=== PATIENT | female | born 1950 | race Caucasian/White ===

== ENCOUNTER → 2025-02-15 | Outpatient (CLI) | payer MEDICARE, SELFPAY ==
[2025-02-15 10:18] LABS: AST(SGOT) 58 U/L (<=31); Alanine Aminotransfer ALT/SGPT 74 U/L (<=34); Albumin, Serum 4.5 g/dL (3.4-4.8); Alkaline Phosphatase 341 U/L (35-104); Bilirubin, Direct 0.30 mg/dL (0.00-0.30); Globulin 3.5 g/dL (2.2-4.2)
[2025-02-16 16:09] LABS: Angiotensin Convert Enzyme 25 U/L (14-82); IgG, Quant 1401 mg/dL (586-1602); Immunoglobulin G, Subclass 1 681 mg/dL (248-810); Immunoglobulin G, Subclass 2 514 mg/dL (130-555); Immunoglobulin G, Subclass 3 48 mg/dL (15-102); Immunoglobulin G, Subclass 4 26 mg/dL (2-96)
== END | disposition home or self-care (01) ==
PROVIDERS: PCP Nurse Practitioner Family; Referring Provider Nurse Practitioner Acute Care; Visit Provider Nurse Practitioner Acute Care
DX: R74.8 Abnormal levels of other serum enzymes (principal); R74.01 Elevation of levels of liver transaminase levels; K83.8 Other specified diseases of biliary tract
CPT/HCPCS: 36415; 80076; 82164; 82784; 82787; 83516; 86038; 86225; 86235; 86704; 86706; 86708

== ENCOUNTER → 2025-03-02 | Outpatient (CLI) | payer MEDICARE, SELFPAY ==
[2025-03-02 15:05] LABS: AST(SGOT) 42 U/L (<=31); Alanine Aminotransfer ALT/SGPT 58 U/L (<=34); Albumin, Serum 4.3 g/dL (3.4-4.8); Alkaline Phosphatase 305 U/L (35-104); Bilirubin, Direct 0.30 mg/dL (0.00-0.30); Globulin 3.2 g/dL (2.2-4.2)
[2025-03-04 14:08] LABS: ANTINUCLEAR ANTIBODIES DIRECT Negative (Negative)
== END | disposition home or self-care (01) ==
LOC: LAB 13:47
PROVIDERS: PCP Nurse Practitioner Family; Referring Provider Nurse Practitioner Acute Care; Visit Provider Nurse Practitioner Acute Care
DX: R74.01 Elevation of levels of liver transaminase levels (principal); R74.8 Abnormal levels of other serum enzymes; K83.8 Other specified diseases of biliary tract
CPT/HCPCS: 80076; 83516; 86038; 86225; 86235

== ENCOUNTER → 2025-03-23 | Outpatient (CLI) | payer MEDICARE, SELFPAY ==
--- NOTE | 2025-03-23 15:59 | CT_ITS ---
PROCEDURE: ABDOMEN/PELVIS WITH CONTRAST 03/23/2025 REASON FOR EXAM: DILATED CBD AND TRANSAMINITIS Elevated liver enzymes. TECHNIQUE: Procedure Code: [id number] Modality: CT Procedure: ABDOMEN/PELVIS WITH CONTRAST Coronal and Sagittal reconstruction series were provided. CONTRAST: Isovue-300 VOLUME: 95 mL One or more dose reduction techniques were used (e.g., Automated exposure control, adjustment of the mA and/or kV according to patient size, use of iterative reconstruction technique. RADIATION DOSE SUMMARY: CTDlvol: 15.8 mGy DLP: 956.29 mGycm COMPARISON: None FINDINGS: Lung bases: The lung bases are clear. Liver: Diffuse fatty infiltration. Gallbladder: Surgically absent.. The common bile duct measures 7.6 mm in transverse dimension. Spleen: Normal size. Pancreas: Diffuse fatty atrophy. Adrenals: Unremarkable Kidneys: Normal renal sizes. No hydronephrosis. Bladder: Not adequately distended. Reproductive Organs: Unremarkable Bowel: Moderate amount of fecal material is seen throughout the colon. Appendix: Unremarkable. Lymph nodes: Unremarkable. Vasculature: Mild diffuse atherosclerotic calcifications are noted. Peritoneum / Retroperitoneum: Small umbilical hernia containing fat. Bones: Degenerative changes of the spine. CT/Abdomen/Pelvis WITH Contrast IMPRESSION: Fatty infiltration of the liver. The patient is status post cholecystectomy. Fatty atrophy of the pancreas. Moderate amount of fecal material is seen throughout the colon. Reading Location: [id number]
== END | disposition home or self-care (01) ==
LOC: CT 15:57
PROVIDERS: PCP Nurse Practitioner Family; Referring Provider Nurse Practitioner Acute Care; Visit Provider Nurse Practitioner Acute Care
DX: R74.8 Abnormal levels of other serum enzymes (principal); K83.8 Other specified diseases of biliary tract; R74.01 Elevation of levels of liver transaminase levels
CPT/HCPCS: 74177; Q9967

== ENCOUNTER → 2025-04-05 | Outpatient (CLI) | payer MEDICARE, SELFPAY ==
--- OUTSIDE RECORDS SUMMARY | 2025-04-05 08:06 | XMS RPT_ITS | CCD ---
Author Organization [facility] Care Team Providers Care Lining Cleaner Name Role Phone [facility] MANAGER-RUG REPAIRER, [place] Primary Care Physician VON CROWELL, DR SUSY Perry Attending Unavailab le [facility] MANAGER-RUG REPAIRER, [facility] Unavail able SUPPAN DPM, JAYLEN Pak Attending Unavailable [facility] MANAGER-RUG REPAIRER, [facility] Unavail able SUPPAN DPM, JAYLEN Pak Attending Unavailable [facility] MANAGER-RUG REPAIRER, [facility] Unavail able [facility] MANAGER-RUG REPAIRER, [place] Attending Unavail able [facility] MANAGER-RUG REPAIRER, [facility] Unavail able [facility] MANAGER-RUG REPAIRER, [place] Primary Care Physician Alex PERSONNEL RECORDS CLERK-CJazmine Attending Physician Hawa PERSONNEL RECORDS CLERK-C, [place] Primary Care Physician [phone] Alex PERSONNEL RECORDS CLERK-Jazmine Manzo Referring Provider [facility] MANAGER-RUG REPAIRER, [place] Attending Unavail able [facility] MANAGER-RUG REPAIRER, [facility] Unavail able [facility] MANAGER-RUG REPAIRER, [place] Attending Unavail able [facility] MANAGER-RUG REPAIRER, [facility] Unavail able ECHO DRUMMOND PA-C Attending Unavailable [facility] MANAGER-RUG REPAIRER, [facility] Unavail able [facility] MANAGER-RUG REPAIRER, [place] Attending Unavail able [facility] MANAGER-RUG REPAIRER, [facility] Unavail able [facility] MANAGER-RUG REPAIRER, [facility] Unavail able [facility] MANAGER-RUG REPAIRER, JAZMINE Attending Unava ilable [facility] MANAGER-RUG REPAIRER, [facility] Unavail able [facility] MANAGER-RUG REPAIRER, JAZMINE Attending Unava ilable [facility] MANAGER-RUG REPAIRER, [place] Attending Unavail able [facility] MANAGER-RUG REPAIRER, [facility] Unavail able [facility] MANAGER-RUG REPAIRER, [facility] Unavail able [facility] MANAGER-RUG REPAIRER, [place] Attending Unavail able RAMIRO SHAVER PA-C Attending Unavailab le [facility] MANAGER-RUG REPAIRER, [facility] Unavail able [facility] MANAGER-RUG REPAIRER, [place] Attending Unavail able [facility] MANAGER-RUG REPAIRER, [facility] Unavail able Jazmine Culver Referring Unavailable Jazmine Culver Attending Unavailable Hawa PERSONNEL RECORDS CLERK, [facility] Unavailable Jazmine Culver Referring Unavailable Jazmine Culver Attending Unavailable Hawa PERSONNEL RECORDS CLERK, [facility] Unavailable Susy Longoria Referring Unavailable Susy Longoria Attending Unavailable Jazmine Culver Attending Unavailable Jazmine Culver Referring Unavailable Jazmine Culver Attending Unavailable Hawa PERSONNEL RECORDS CLERK, [facility] Unavailable Allergies Allergy Classification Reported Allergen(s) Allergy Type Date of Onset Reaction(s) Facility (8 sources) Lisinopril; Translations: [lisinopril] Drug Allergy 5 Cough (finding) [facility] Michael (1 source) Lisinopril Drug Allergy 5 [facility] Repository Medications Current Medications Medication Drug Class(es) Dates Sig (Normalized) Sig (Original) Latimer 1,000 mg tablet (2 sources) Start: 02-15-2025 take 1 tablet by mouth once daily Start: 02-02-2025 End: 02-15-2025 take 1 mg by mouth once daily Latimer 1,000 mg tablet Discontinued mg PO daily February 02, 2025 12:00am February 15, 2025 7:57am Latimer capsule (18 sources) Start: 04-18-2021 take 1 capsule by [facility] once daily Latimer capsule 1,000 mg, Oral, Daily, 0 Refill(s) Start Date: 04/18/21 Status: Ordered Medication Dispense Status: Completed Total Allowed Fills: 1 Fills Dispensed: 0 Start: 04-18-2021 take 1 capsule by [facility] once daily Latimer capsule 1,000 mg, Oral, Daily, 0 Refill(s) Start Date: 04/18/21 Status: Ordered Repeat number: 1 Start: 04-18-2021 take 1 capsule by [facility] once daily Latimer capsule 1,000 mg, Oral, Daily, 0 Refill(s) Start Date: 04/18/21 Status: Ordered Start: 04-18-2021 Latimer capsul e 0 Refill(s) Start Date: 04/18/21 Status: Ordered ascorbic acid 500 mg oral capsule (19 sources) Vitamin C Start: 02-02-2025 take 1 mg by mouth o nce daily Start: 04-18-2021 take 1 dose by mouth once candida y Vitamin C Dose : 500 mg =, Oral, qDay, 0 Refill(s) Start Date: 04/18/21 Status: Ordered Medication Dispense Status: Completed Total Allowed Fills: 1 Fills Dispensed: 0 Start: 04-18-2021 Vitamin C qDay , 0 Refill(s) Start Date: 04/18/21 Status: Ordered aspirin 81 mg delayed release oral tablet (12 sources) Platelet Aggregation Inhibitor, Nonsteroidal Anti-inflammatory Drug Start: 06-04-2023 aspirin 81 mg ora l delayed release tablet Dose : 81 mg = 1 tab(s), Oral, Daily, 0 Refill(s) Start Date: 06/04/23 Status: Ordered Repeat number: 1 Start: 09-13-2020 aspirin 81 mg oral delayed release tablet Dose : 162 mg = 2 tab(s), Oral, qDay, # 90 tab(s), 3 Refill(s), other reason (Rx) Start Date: 09/13/20 Status: Ordered Start: 09-13-2020 aspirin 81 mg oral delayed release tablet Dose : 162 mg = 2 tab(s), Oral, qDay, # 90 tab(s), 3 Refill(s), other reason (Rx) Start Date: 09/13/20 Status: Ordered atorvastatin 20 mg oral tablet (16 sources) HMG-CoA Reductase Inhibitor Start: 08-28-2023 End: 11-18-2025 take 1 tablet by mouth once daily Calcium with Vitamin D and Magnesium oral tablet, chewable (18 sources) Start: 04-18-2021 take 1 tablet by mouth twice daily Calcium with Vitamin D and Magnesium oral tablet, chewable Dose = 1 tab(s), Chewed, BID, 0 Refill(s) Start Date: 04/18/21 Status: Ordered Medication Dispense Status: Completed Total Allowed Fills: 1 Fills Dispensed: 0 Start: 04-18-2021 take 1 tablet by [facility] twice daily Calcium with Vitamin D and Magnesium oral tablet, chewable Dose = 1 tab(s), Chewed, BID, 0 Refill(s) Start Date: 04/18/21 Status: Ordered Repeat number: 1 Start: 04-18-2021 take 1 tablet by [facility] twice daily Calcium with Vitamin D and Magnesium oral tablet, chewable Dose = 1 tab(s), Chewed, BID, 0 Refill(s) Start Date: 04/18/21 Status: Ordered Start: 04-18-2021 take 1 tablet by [facility] three times daily Calcium with Vitamin D and Magnesium oral tablet, chewable tab(s), Chewed, TID, 0 Refill(s) Start Date: 04/18/21 Status: Ordered famotidine 20 mg oral tablet (2 sources) Histamine-2 Receptor Antagonist Start: 04-13-2024 famotidine 20 mg oral tablet Dose : 20 mg = 1 tab(s), Oral, BID, # 60 tab(s), 0 Refill(s) Start Date: 04/13/24 Status: Ordered Quantity: 60.0 Unit: tab(s) Repeat number: 1 Lactobacillus Combination No.9 (Adult 50 Plus Probiotic) 4 billion cell capsule (1 source) Start: 02-02-2025 take 4 capsules by mouth once daily levothyroxine sodium 0.15 mg oral capsule (20 sources) l-Thyroxine Start: 02-02-2025 take 1 capsule by mouth once daily Start: 11-23-2024 End: 08-20-2025 levothyroxine 150 mcg (0.15 mg) oral tablet Dose : 150 mcg = 1 tab(s), Oral, qDay, # 90 tab(s), 2 Refill(s), Pharmacy: [facility], 166, cm, 11/23/24 8:50:00 EDT, Height, kg, 11/23/24 8:50:00 EDT, Dosing Weight Start Date: 11/23/24 Stop Date: 08/20/25 Status: Ordered Medication Dispense Status: Completed Quantity: 90.0 Unit: tab(s) Total Allowed Fills: 3 Fills Dispensed: 0 Start: 08-10-2024 End: 08-05-2025 levothyroxine 175 mcg (0.175 mg) oral tablet Dose : 175 mcg = 1 tab(s), Oral, qDay, # 90 tab(s), 3 Refill(s), [facility]acy: [facility] 166, cm, 08/10/24 7:18:00 EDT, Height, kg, 08/10/24 7:18:00 EDT, Dosing Weight Start Date: 08/10/24 Stop Date: 08/05/25 Status: Ordered Quantity: 90.0 Unit: tab(s) Repeat number: 4 Start: 04-13-2024 levothyroxine 175 mcg (0.175 mg) oral tablet Dose : 175 mcg = 1 tab(s), Oral, qDay, # 90 tab(s), 3 Refill(s), other reason (Rx) Start Date: 04/13/24 Status: Ordered Quantity: 90.0 Unit: tab(s) Repeat number: 4 Start: 06-17-2023 levothyroxine 175 mcg (0.175 mg) oral tablet Dose : 175 mcg = 1 tab(s), Oral, qDay, No dose on Sundays, # 90 tab(s), 3 Refill(s), Pharmacy: [facility] 167, cm, 06/14/23 10:03:00 EST, Height, kg, 06/14/23 10:03:00 EST, Dosing Weight Start Date: 06/17/23 Status: Ordered Start: 09-24-2022 levothyroxine 175 mcg (0.175 mg) oral tablet Dose : 175 mcg = 1 tab(s), Oral, qDay, No dose on Sundays, # 90 tab(s), 3 Refill(s), [facility], 08/10/22 8:56:00 EDT, Height, kg, 08/10/22 8:56:00 EDT, Dosing Weight Start Date: 09/24/22 Status: Ordered Start: 05-15-2022 levothyroxine 175 mcg (0.175 mg) oral tablet Dose : 175 mcg = 1 tab(s), Oral, qDay, No dose on Sundays, # 90 tab(s), 3 Refill(s), Pharmacy: [facility], 168, cm, 10/30/21 10:20:00 EDT, Height, kg, 10/30/21 10:20:00 EDT, Dosing Weight Start Date: 05/15/22 Status: Ordered Start: 02-09-2020 End: 02-03-2021 levothyroxine 175 mcg (0.175 mg) oral tablet Dose : 175 mcg = 1 tab(s), Oral, qDay, No dose on Sundays, # 90 tab(s), 3 Refill(s), Pharmacy: [place] [address], 168.9, cm, 02/09/20 13:10:00 EDT, Height, kg, 02/09/20 13:10:00 EDT, Dosing Weight Start Date: 02/09/20 Stop Date: 02/03/21 Status: Ordered lisinopril 2.5 mg oral tablet (2 sources) Angiotensin Converting Enzyme Inhibitor Start: 08-28-2023 End: 08-22-2024 lisinopril 2.5 mg oral tablet Dose : 2.5 mg = 1 tab(s), Oral, qDay, # 90 tab(s), 3 Refill(s), Pharmacy: [facility] 167.6, cm, 08/28/23 7:51:00 EDT, Height, kg, 08/28/23 7:51:00 EDT, Dosing Weight Start Date: 08/28/23 Stop Date: 08/22/24 Status: Ordered losartan potassium 25 mg oral tablet (14 sources) Angiotensin 2 Receptor Basilia Start: 02-02-2025 take 0.5 tablet by mouth once daily Start: 01-08-2024 End: 11-18-2025 losartan 25 mg oral tablet D ose : 12.5 mg = 0.5 tab(s), Oral, qDay, # 45 tab(s), 3 Refill(s), Pharmacy: [facility] 166, cm, 11/23/24 8:50:00 EDT, Height, kg, 11/23/24 8:50:00 EDT, Dosing Weight Start Date: 11/23/24 Stop Date: 11/18/25 Status: Ordered Medication Dispense Status: Completed Quantity: 45.0 Unit: tab(s) Total Allowed Fills: 4 Fills Dispensed: 0 meloxicam 7.5 mg oral tablet (2 sources) Nonsteroidal Anti-inflammatory Drug Start: 04-13-2024 meloxicam 7.5 mg oral tablet Dose : 7.5 mg = 1 tab(s), Oral, qDay, Take with food/milk, # 30 tab(s), 0 Refill(s) Start Date: 04/13/24 Status: Ordered Quantity: 30.0 Unit: tab(s) Repeat number: 1 Multivitamin preparation (18 sources) Start: 04-18-2021 take 1 tablet by mouth once daily Multivitamin Dose = 1 tab(s), Oral, Daily, 0 Refill(s) Start Date: 04/18/21 Status: Ordered Medication Dispense Status: Completed Total Allowed Fills: 1 Fills Dispensed: 0 Start: 04-18-2021 take 1 tablet by [facility] th once daily Multivitamin Dose = 1 tab(s), Oral, Daily, 0 Refill(s) Start Date: 04/18/21 Status: Ordered Repeat number: 1 Start: 04-18-2021 take 1 tablet by [facility] th once daily Multivitamin Dose = 1 tab(s), Oral, Daily, 0 Refill(s) Start Date: 04/18/21 Status: Ordered Multivitamin tablet (1 source) Start: 02-02-2025 Probiotic (18 sources) Start: 04-18-2021 take 1 capsule by mouth once daily Probiotic 1 capsule, Oral, Daily, 0 Refill(s) Start Date: 04/18/21 Status: Ordered Medication Dispense Status: Completed Total Allowed Fills: 1 Fills Dispensed: 0 Start: 04-18-2021 take 1 capsule by mo ut once daily Probiotic 1 capsule, Oral, Daily, 0 Refill(s) Start Date: 04/18/21 Status: Ordered Repeat number: 1 Start: 04-18-2021 take 1 capsule by mo uth once daily Probiotic 1 capsule, Oral, Daily, 0 Refill(s) Start Date: 04/18/21 Status: Ordered Start: 04-18-2021 Probiotic 0 Re fill(s) Start Date: 04/18/21 Status: Ordered rivaroxaban 20 mg oral tablet (1 source) Factor Xa Inhibitor Start: 04-15-2021 Xarelto 20 mg oral tablet 0 Refill(s), 74.4 Start Date: 04/15/21 Status: Ordered Vitamin C 500 mg oral tablet (2 sources) Start: 02-10-2025 Vitamin C 500 mg oral tablet Dose : 500 mg = 1 tab(s), Oral, qDay, # 30 tab(s), 0 Refill(s) Start Date: 02/10/25 Status: Ordered Medication Dispense Status: Completed Quantity: 30.0 Unit: tab(s) Total Allowed Fills: 1 Fills Dispensed: 0 Zinc (18 sources) Start: 04-18-2021 take 1 dose by mouth once daily Zinc Dose : 50 mg =, Oral, qDay, 0 Refill(s) Start Date: 04/18/21 Status: Ordered Medication Dispense Status: Completed Total Allowed Fills: 1 Fills Dispensed: 0 Start: 04-18-2021 take 1 dose by mouth once candida y Zinc Dose : 50 mg =, Oral, qDay, 0 Refill(s) Start Date: 04/18/21 Status: Ordered Repeat number: 1 Start: 04-18-2021 take 1 dose by mouth once candida y Zinc Dose : 50 mg =, Oral, qDay, 0 Refill(s) Start Date: 04/18/21 Status: Ordered Start: 04-18-2021 take 1 mg by mouth once daily Zinc mg =, Oral, qDay, 0 Refill(s) Start Date: 04/18/21 Status: Ordered zinc sulfate 220 mg oral tab let (1 source) Start: 02-02-2025 take 1 tablet by nikko th once daily Completed/Discontinued Medications Medication Drug Class(es) Dates Sig (Normalized) Sig (Original) acetaminophen 325 mg / oxyCODONE hydrochloride 5 mg oral tablet (2 sources) Opioid Agonist Start: 06-04-2023 acetaminophen-oxyC ODONE 325 mg-5 mg oral tablet Dose = 1 tab(s), Oral, q6h, PRN for pain, 0 Refill(s), 83.6 Start Date: 06/04/23 Status: Ordered Problems Problem Classification Problem Date Documented Da te Episodic/Chronic Biliary tract disease (5 sources) Acquired dilation of bile duct; Translations: [Other specified diseases of biliary tract] Onset: 02-15-2025 Chronic Conditions associated with dizziness or vertigo (18 sources) Vertigo 08-10-2022 Episodic Diabetes mellitus without complication (20 sources) Type 2 diabetes mellitus; Translations: [Type 2 diabetes mellitus without complications] Onset: 5 08-28-2023 Chronic Diabetes mellitus without complication (20 sources) Hyperglycemia 02-09-2020 Episodic Disorders of lipid metabolism (12 sources) Hyperlipidemia 02-09-2020 Chronic Headache; including migraine (1 source) Frequent headache; Translations: [Frequent headaches] 02-15-2025 Episodic Inflammation; infection of eye (except that caused by tuberculosis or sexually transmitteddisease) (7 sources) Eczematous dermatitis of eyelid 08-10-2024 Episodic Malaise and fatigue (1 source) Asthenia; Translations: [Weakness] Episodic Osteoarthritis (16 sources) Osteoarthritis of knee; Translations: [Unilateral primary osteoarthritis, right knee] 12-23-2023 Chronic Other aftercare (2 sources) Follow-up orthopedic assessment; Translations: [Aftercare following joint replacement surgery] Chronic Other and unspecified benign neoplasm (2 sources) History of polyp of colon; Translations: [History of colonic polyps] 02-15-2025 Episodic Other connective tissue disease (2 sources) Artificial knee joint present; Translations: [Presence of left artificial knee joint] Chronic Other connective tissue disease (1 source) Swelling of left lower limb 08-03-2020 Episodic Other connective tissue disease (18 sources) Cramp in lower limb 06-20-2022 Episodic Other connective tissue disease (1 source) Musculoskeletal test abnormal; Translations: [Other symptoms and signs involving the musculoskeletal system] Episodic Other connective tissue disease (7 sources) Lateral epicondylitis 08-10-2024 Episodic Other liver diseases (4 sources) Elevated liver enzymes level 11-23-2024 Episodic Other liver diseases (2 sources) Alkaline phosphatase raised; Translations: [Abnormal levels of other serum enzymes] 02-15-2025 Episodic Other liver diseases (2 sources) ALT (SGPT) level raised; Translations: [High alanine aminotransferase (ALT) level] 02-15-2025 Episodic Other liver diseases (2 sources) Gamma-glutamyl transferase raised; Translations: [Abnormal levels of other serum enzymes] 02-15-2025 Episodic Other liver diseases (3 sources) Abnormal levels of other serum enzymes; Translations: [Abnormal levels of other serum enzymes] Onset: Episodic Other lower respiratory disease (7 sources) Cough 12-23-2023 Episodic Other nervous system disorders (1 source) Neuropathy 06-20-2022 Chronic Other nervous system disorders (15 sources) Nerve root disorder 08-28-2023 Chronic Other nervous system disorders (2 sources) Walking disability; Translations: [Difficulty in walking, not elsewhere classified] Chronic Other nervous system disorders (1 source) Carpal tunnel syndrome; Translations: [Carpal tunnel syndrome, unspecified upper limb] 02-15-2025 Chronic Other non-traumatic joint disorders (17 sources) Multiple joint pain 12-31-2022 Episodic Other non-traumatic joint disorders (1 source) Pain in left knee; Translations: [Pain of left knee joint] Episodic Other non-traumatic joint disorders (1 source) Pain in right knee; Translations: [Pain of right knee joint] Episodic Other screening for suspected conditions (not mental disorders or infectious disease) (13 sources) Abnormal renal function; Translations: [Encounter for screening mammogram for malignant neoplasm of breast] Onset: 4 04-18-2021 Episodic Phlebitis; thrombophlebitis and thromboembolism (19 sources) Thrombosis of superficial vein of lower limb 09-13-2020 Episodic Residual codes; unclassified (15 sources) Postmenopausal state 08-05-2023 Episodic Residual codes; unclassified (2 sources) Family history of cancer of colon; Translations: [Family history of malignant neoplasm of digestive organs] 02-15-2025 Episodic Comment on above: Father Residual codes; unclassified (1 source) Acquired absence of other specified parts of digestive tract; Translations: [Acquired absence of other specified parts of digestive tract] Onset: 5 Episodic Residual codes; unclassified (1 source) Family history of malignant neoplasm of digestive organs; Translations: [Family history of malignant neoplasm of digestive organs] Onset: 5 Episodic Spondylosis; intervertebral disc disorders; other back problems (1 source) Back problem; Translations: [Dorsopathy, unspecified] 02-15-2025 Episodic Syncope (19 sources) Syncope and collapse; Translations: [Syncope and collapse] Onset: 1 Episodic Thyroid disorders (20 sources) Hypothyroidism; Translations: [Hypothyroidism, unspecified] Onset: 5 01-15-2019 Chronic Unclassified (20 sources) Patient encounter status 08-03-2020 Unclassified (2 sources) Elevation of levels of liver transaminase levels; Translations: [Elevation of levels of liver transaminase levels] Onset: 5 Unclassified (1 source) Personal history of colon polyps, unspecified; Translations: [Personal history of colon polyps, unspecified] Onset: 5 Varicose veins of lower extremity (19 sources) Varicose veins of lower extremity 08-03-2020 Episodic Results Test Name Value Interpretation Reference Range Facility CHRISTOPHER w/ Reflex Mult Confirmon 03-05-2025 ANTI-DNA (DS)AB TNP Normal [facility] Comment on above: Performed By: #### L 800.1280, L3100.5450, [id number] #### [facility] [address] [place], [address] ANTI-SS-A TNP Normal [facility] Comment on above: Performed By: #### L 800.1280, [id number], [id number] #### [facility] [address] [place], [address] ANTI-SS-B TNP Normal [facility] Comment on above: Performed By: #### L 800.1280, [id number], [id number] #### [facility] [address] [place], [address] Anti-Mitochondrial ABon 02-05 ANTIMITOCHON AB <20.0 Normal 0.0-20.0 [facility] Comment on above: Result Comment: Nega tive 0.0 - 20.0 Equivocal 20.1 - 24.9 Positive >24.9 Mitochondrial (M2) Antibodies are found in 90-96% of patients with primary biliary cirrhosis. Performed By: #### L 800.1280, [id number], [id number] #### [facility] [address] [place], [address] Liver Profileon 03-02-2025 Albumin [Mass/Vol] 4.3 g/dL Normal 3.4-4.8 [facility] Comment on above: Performed By: #### L 800.1280, [id number], [id number] #### [facility] [address] [place], [address] ALK PHOS 305 U/L High 35-104 [facility] Comment on above: Performed By: #### L 800.1280, [id number], [id number] #### [facility] [address] [place], [address] ALT [Catalytic activity/Vol] 58 U/L High <=34 [facility] Comment on above: Performed By: #### L 800.1280, [id number], [id number] #### [facility] [address] [place], [address] AST [Catalytic activity/Vol] 42 U/L High <=31 [facility] Comment on above: Performed By: #### L 800.1280, [id number], [id number] #### [facility] [address] [place], [address] Bilirubin [Mass/Vol] 0.70 mg/dL Normal 0.00-1.30 [facility] [place] Comment on above: Performed By: #### L 800.1280, [id number], [id number] #### [facility] [address] [place], [address] Bilirubin.direct [Mass/Vol] 0.30 mg/dL Normal 0.00-0.30 [facility] Comment on above: Performed By: #### L 800.1280, [id number], [id number] #### [facility] [address] [place], [address] Globulin (S) [Mass/Vol] 3.2 g/dL Normal 2.2-4.2 [facility] Comment on above: Performed By: #### L 800.1280, [id number], [id number] #### [facility] [address] [place], [address] T PROT 7.6 g/dL Normal 5.9-8.4 [facility] Comment on above: Performed By: #### L 800.1280, [id number], [id number] #### [facility] [address] [place], [address] HFPon 03-01-2025 Bili Indirect 0.6 mg/dL Normal [facility] Comment on above: Performed By: #### G FR, CMP, TSHR, A1C, LIPID, FT4 #### [address] [address] Albumin Level 3.9 G/dL Normal 3.4-4.8 [facility] Comment on above: Performed By: #### G FR, CMP, TSHR, A1C, LIPID, FT4 #### [address] [address] Albumin/Globulin [Mass ratio] 1.0 {ratio} Low 1.1-2.5 [facility] Comment on above: Performed By: #### G FR, CMP, TSHR, A1C, LIPID, FT4 #### [address] [address] ALP [Catalytic activity/Vol] 336 U/L High 40-135 [facility] Comment on above: Performed By: #### G FR, CMP, TSHR, A1C, LIPID, FT4 #### [address] [address] ALT [Catalytic activity/Vol] 63 U/L High 14-59 [facility] Comment on above: Performed By: #### G FR, CMP, TSHR, A1C, LIPID, FT4 #### [address] [address] AST [Catalytic activity/Vol] 42 U/L High 10-40 [facility] Comment on above: Performed By: #### G FR, CMP, TSHR, A1C, LIPID, FT4 #### [address] [address] Bili Direct 0.2 mg/dL Normal 0.0-0.2 [facility] Comment on above: Result Comment: Use of this assay is not recommended for patients undergoing treatment with eltrombopag due to the potential for falsely elevated results. Performed By: #### G FR, CMP, TSHR, A1C, LIPID, FT4 #### [place] [address] [place], [place] [address] Bili Total 0.8 mg/dL Normal 0.2-1.0 [facility] Comment on above: Result Comment: Use of this assay is not recommended for patients undergoing treatment with eltrombopag due to the potential for falsely elevated results. Performed By: #### G FR, CMP, TSHR, A1C, LIPID, FT4 #### [address] [address] Globulin 3.9 G/dL Normal 2.7-4.4 [facility] Comment on above: Performed By: #### G FR, CMP, TSHR, A1C, LIPID, FT4 #### [address] [address] Total Protein 7.8 G/dL Normal 6.4-8.2 [facility] Comment on above: Performed By: #### G FR, CMP, TSHR, A1C, LIPID, FT4 #### [address] [address] LABORATORYOrdered By: SYSTEM SYSTEM on 03-01-2025 Albumin BCP dye [Mass/Vol] 3.9 G/dL Normal 3.4 - 4.8 G/dL AO ADM SS Albumin/Globulin [Mass ratio] 1.0 {ratio} Low 1.1 - 2.5 ratio AO ADM SS ALP [Catalytic activity/Vol] 336 U/L High 40 - 135 U/L AO ADM SS ALT With P-5'-P [Catalytic activity/Vol] 63 U/L High 14 - 59 U/L AO ADM SS AST With P-5'-P [Catalytic activity/Vol] 42 U/L High 10 - 40 U/L AO ADM SS Bilirubin [Mass/Vol] 0.8 mg/dL Normal 0.2 - 1 .0 mg/dL AO ADM SS Comment on above: Interpretive Data: U se of this assay is not recommended for patients undergoing treatment with eltrombopag due to the potential for falsely elevated results. Bilirubin.direct [Mass/Vol] 0.6 mg/dL Invalid Interpretation Code AO Chemistry S Bilirubin.direct [Mass/Vol] 0.2 mg/dL Normal 0.0 - 0.2 mg/dL AO ADM SS Comment on above: Interpretive Data: U se of this assay is not recommended for patients undergoing treatment with eltrombopag due to the potential for falsely elevated results. Globulin 3.9 G/dL Normal 2.7 - 4.4 G/dL AO ADM SS Protein [Mass/Vol] 7.8 G/dL Normal 6.4 - 8.2 G/dL AO ADM SS MRI MRCPon 02-24-2025 MRI MRCP ORIGINAL EXAMINATION: MRCP1 7:19 am TECHNIQUE: MRCP was performed without the administration of intravenous contrast. COMPARISON: Abdominal ultrasound 01/08/2025. HISTORY: ORDERING SYSTEM PROVIDED HISTORY: Reason for Exam: Other specified diseases of biliary tract, Dilated common duct. FINDINGS: This is a non-contrast study and is not intended or optimized for evaluating solid organ pathology, including mass lesions. There is no intrahepatic bile duct dilatation. The common hepatic and common bile ducts are dilated. The common bile duct measures 1.1 cm. There is no choledocholithiasis . The pancreatic duct is normal in morphology and caliber with no suggestion of pancreas divisum. There is no peripancreatic edema/fluid or other indicators of acute pancreatitis on this study. The gallbladder is surgically absent. IMPRESSION: Dilatation of the common hepatic and common bile ducts without choledocholithiasis . Findings may be secondary to a post cholecystectomy state. I have personally reviewed the images of this examination and agree with the resident's findings and interpretation. Interpreted by: Jeramie Lutz MD Preliminary Report By: Dragan Resi Electronically signed By Jeramie Lutz MD Dictated Date: 02/24/2025 8:48:01 AM Prelim Date: 02/24/2025 12:25:42 PM Sign Date: 02/24/2025 12:25:42 PM Ordering Provider: JAZMINE CULVER RP Normal [facility] Angiotensin Convert Enzymeon 02-16-2025 ANGIOT-CONV.ENZ 25 U/L Normal 14-82 [facility] Comment on above: Performed By: #### L 800.1280, L3100.5450, L500.3400 #### [facility] Laboratory [address] [place], [address] Hepatitis A AB, Totalon 02-03 HEPATITIS A,TOT Negative Normal Negative [facility] Comment on above: Result Comment: Comm ent: The HAV total antibody assay detects both IgG and IgM but does not differentiate between them. A negative result suggests susceptibility to infection. A positive result could be due to vaccination, previously resolved infection or active infection. Testing for HAV IgM should be performed if active HAV infection is suspected. [employer] offers profiles that will automatically reflex positive HAV total antibody results to IgM (e.g., panel #[id number] HAV Antibody w/ Rfx). Performed at: [facility] [id number] Store Cashier: Vik Yousif PhD, Phone: [phone] Performed By: #### L 800.1280, L3100.5450, L500.3400 #### [facility] [address] [place], [address] Hepatitis B Core Ab Totalon 02-16-2025 HEP B CORE,TOT Negative Normal Negative [facility] Comment on above: Performed By: #### L 800.1280, L3100.5450, L500.3400 #### [facility] [address] [place], [address] IgG Subclasseson 02-16-2025 IgG, SUBCLASS 1 681 mg/dL Normal 248-810 [facility] Comment on above: Performed By: #### L 800.1280, L3100.5450, L500.3400 #### [facility] [address] [place], [address] IgG, SUBCLASS 2 514 mg/dL Normal 130-555 [facility] Comment on above: Performed By: #### L 800.1280, L3100.5450, L500.3400 #### [facility] [address] [place], [address] IgG, SUBCLASS 3 48 mg/dL Normal 15-102 [facility] Comment on above: Performed By: #### L 800.1280, L3100.5450, L500.3400 #### [facility] [address] [place], [address] IgG, SUBCLASS 4 26 mg/dL Normal 2-96 [facility] Comment on above: Performed By: #### L 800.1280, L3100.5450, L500.3400 #### [facility] [address] [place], [address] IGG,QUANT 1401 mg/dL Normal 586-1602 [facility] Comment on above: Performed By: #### L 800.1280, L3100.5450, L500.3400 #### [facility] [address] [place], [address] CHRISTOPHER w/ Reflex Mult Confirmon 02-15-2025 CHRISTOPHER TABLE TNP Normal [facility] Comment on above: Result Comment: NOT SENT TO [facility] Performed By: #### L 3100.0460, L3100.0300, L500.3400, L3100.6900, L3100.5450, L3200.0500, L3890.6202 #### [facility] [address] [place], [address] CHRISTOPHER,DIRECT Normal [facility] Comment on above: Result Comment: NOT SENT TO [facility] Performed By: #### L 3100.0460, L3100.0300, L500.3400, L3100.6900, L3100.5450, L3200.0500, L3890.6202 #### [facility] [address] [place], [address] CHRISTOPHER-D See below TNP Normal [facility] Comment on above: Result Comment: NOT SENT TO [facility] Performed By: #### L 3100.0460, L3100.0300, L500.3400, L3100.6900, L3100.5450, L3200.0500, L3890.6202 #### [facility] [address] [place], [address] ANTI-CENT B AB TNP Normal [facility] Comment on above: Result Comment: NOT SENT TO [facility] Performed By: #### L 3100.0460, L3100.0300, L500.3400, L3100.6900, L3100.5450, L3200.0500, L3890.6202 #### [facility] [address] [place], [address] ANTI-DNA (DS)AB Normal [facility] Comment on above: Result Comment: NOT SENT TO [facility] Performed By: #### L 3100.0460, L3100.0300, L500.3400, L3100.6900, L3100.5450, L3200.0500, L3890.6202 #### [facility] [address] [place], [address] ANTI-ROYER-1 TNP Normal [facility] Comment on above: Result Comment: NOT SENT TO [facility] Performed By: #### L 3100.0460, L3100.0300, L500.3400, L3100.6900, L3100.5450, L3200.0500, L3890.6202 #### [facility] [address] [place], [address] ANTI-SS-A Normal [facility] Comment on above: Result Comment: NOT SENT TO [facility] Performed By: #### L 3100.0460, L3100.0300, L500.3400, L3100.6900, L3100.5450, L3200.0500, L3890.6202 #### [facility] [address] [place], [address] ANTI-SS-B Normal [facility] Comment on above: Result Comment: NOT SENT TO [facility] Performed By: #### L 3100.0460, L3100.0300, L500.3400, L3100.6900, L3100.5450, L3200.0500, L3890.6202 #### [facility] [address] [place], [address] ANTICHROMATIN TNP Normal [facility] Comment on above: Result Comment: NOT SENT TO [facility] Performed By: #### L 3100.0460, L3100.0300, L500.3400, L3100.6900, L3100.5450, L3200.0500, L3890.6202 #### [facility] [address] [place], [address] ANTISCLERODERM TNP Normal [facility] Comment on above: Result Comment: NOT SENT TO [facility] Performed By: #### L 3100.0460, L3100.0300, L500.3400, L3100.6900, L3100.5450, L3200.0500, L3890.6202 #### [facility] [address] [place], [address] TV TECHNICIAN Ab TNP Normal [facility] Comment on above: Result Comment: NOT SENT TO [facility] Performed By: #### L 3100.0460, L3100.0300, L500.3400, L3100.6900, L3100.5450, L3200.0500, L3890.6202 #### [facility] [address] [place], [address] CROWELL Ab TNP Normal [facility] Comment on above: Result Comment: NOT SENT TO [facility] Performed By: #### L 3100.0460, L3100.0300, L500.3400, L3100.6900, L3100.5450, L3200.0500, L3890.6202 #### [facility] [address] [place], [address] Bilirubin directOrdered By: Jazmine Culver on 02-15-2025 Bilirubin.direct [Mass/Vol] 0.30 mg/dL 0.00-0.30 [facility] Bilirubin, totalOrdered By: Jazmine Culver on 02-15-2025 Bilirubin [Mass/Vol] 0.64 mg/dL 0.00-1.30 [facility] [place] Gastroenterology Visit Repor ton 02-15-2025 Gastroenterology Visit Report [facility]astroenterology [address] [place] [address] OFFICE VISIT Date of Service: 02/15/25 MR#: [id number] Acct: [id number] Name: KHOI CAPUTO Nano Rep #: [id number] : 1950 Provider: CAROLYN voss Age/Sex: 74/F Location: [facility] Status: Signed Intake Vital Signs 02/15/25 08:09 Height 5 ft 6 in Weight: 172 lb 8 oz BMI 27.8 BP 151/106 H Respiration 18 Pulse 81 Temp 97.7 F L Temp Source Temporal Pulse Oximetry (%) 96 Oxygen Delivery Method room air Intake Visit Reasons: Liver Enzymes Chief Complaint: elevated liver enzymes Health Plan Advisor Required: No Accompanied by: Is patient in pain?: No Allergies lisinopril Adverse Reaction (Unknown, Verified 02/15/25 07:57) cough Medications ???Medication ???Instructions ???Recorded ???Confirmed ???Type ascorbic acid (vitamin C) 500 mg mg PO QDAY 02/02/25 02/15/25 Histo ry capsule atorvastatin 20 mg tablet (Lipitor) 20 mg PO QDAY 02/02/25 02/15/25 History lactobacillus combination no.9 4 4,000 mmu cells PO QDAY 02/02/25 1 History billion cell capsule (Adult 50 Plus Probiotic) levothyroxine 150 mcg capsule 150 mcg PO QDAY 02/02/25 02/15/25 History losartan 25 mg tablet 25 mg PO QDAY 02/02/25 02/15/25 Hi story multivitamin 1 tab PO QDAY 02/02/25 02/15/25 Hi story zinc sulfate 50 mg zinc (220 mg) 50 mg PO QDAY 02/02/25 02/15/25 Hi story tablet alfalfa 1,000 mg tablet 500 mg PO QDAY 02/15/25 02/15/25 H istory Have you fallen in the past year?: No PFSH Medical History TTS (tarsal tunnel syndrome) Cataracts, bilateral Gallstones Thyroid disease Frequent headaches Bone fracture Surgical History History of knee replacement History of cataract surgery History of carpal tunnel surgery Hx of tonsillectomy History of cholecystectomy Family History Mother Breast cancer Arthritis Father Colon cancer Social History Smoking Status: Never smoker alcohol intake: never substance use type: does not use HPI HPI Chief Complaint: elevated liver enzymes Details: LABS 01/05/2025 AST normal, ALT 63, ALP 268, T. Bili 0.7 11/16/2024 AST normal., ALT 62, ALP 266, T. Bili 0.7 GGT 01/05/2025 345 TSH 01/05/2025 normal HAV Total Ab: HBVsA01/05/2025 negative HBVsAb: HBV Core Ab Total: HCV Ab: 01/05/2025 negative HIV: 03/19/2024 negative Alcohol: denies Herbals: Latimer OTC: Vitamin C, Zinc, M. Vit, probiotic ATB: denies NSAIDS: denies Fever: denies Jaundice: denies Pruritus: denies Weight loss: denies ABD pain: denies CCX long time ago Denies any family h/o liver disease Father with colon CA - last colon 07/26/2020 - denies any bleeding - denies any change in bowel habits ROS Const Constitutional: No fatigue, fever(s) or weight change ENT ENT: No difficulty swallowing Gastro GI: No abdominal pain, belching, bloating, change in bowel habits, change in stool character, coffee ground emesis, constipation, cramping, diarrhea, heartburn, difficulty swallowing, feeling full early, excessive flatus, incontinent of stools, Vomiting blood/hematemesis, Blood in stool, loose stools, Black,tarry stools, nausea/dyspepsia, pain with swallowing, vomiting or other Musc Musculoskeletal: Positive for joint pain, back pain, muscle cramps, stiffness, Arthritis and sciatica Skin Skin: No yellowing of the eye or itchy eyes Psych Psychiatric: No anxiety and No depression Endo Endocrine: No fatigue or weight change Aller/Imm Allergy/Immunologic : No itchy eyes Jonathan/Lymp Hematologic/Lymphat ic: No easy bleeding or easy bruising Assessment and Plan Assessment and Plan (1) Elevated alkaline phosphatase level: Status: Acute (2) Elevated ALT measurement: Status: Acute (3) Dilated cbd, acquired: Status: Acute (4) Elevated serum GGT level: Status: Acute (5) Family history of colon cancer: Status: Acute Comment: Father (6) Personal history of colonic polyps: Status: Acute Orders: Orders Anti-Mitochondrial AB Today K83.8 - Other specified diseases of biliary tract, R74.01 - Elevation of levels of liver transaminase levels, R74.8 - Abnormal levels of other serum enzymes CHRISTOPHER w/ Reflex Mult Confirm Today K83.8 - Other specified diseases of biliary tract, R74.01 - Elevation of levels of liver transaminase levels, R74.8 - Abnormal levels of other serum enzymes Liver Profile Today K83.8 - Other specified diseases of biliary tract, R74.01 - Elevation of levels of liver transaminase levels, R74.8 - Abnormal levels of other seru (more content not included)... Normal [facility] Hepatitis B Surface Antibody on 02-15-2025 HEP B Surf Ab Non-Reactive Normal [facility] Comment on above: Result Comment: <8.5 mIU/mL: Non-Reactive 8.5<= x <11.5 mIU/mL: Indeterminate >=11.5 mIU/mL: Reactive Non Reactive: Inconsistent with immunity less than <10 mIU/mL Reactive: Consistent with immunity greater than or equal to 10 mIU/mL Performed By: #### L 800.1280, L3100.5450, L500.3400 #### [facility] [address] [place], [address] Laboratory - Chemistry and C hemistry - challengeOrdered By: Jazmine Culver on 02-15-2025 AST [Catalytic activity/Vol] 58 U/L High <32 [facility] Liver Profileon 02-15-2025 Albumin [Mass/Vol] 4.5 g/dL Normal 3.4-4.8 [facility] Comment on above: Performed By: #### L 3100.0460, L3100.0300, L500.3400, L3100.6900, L3100.5450, L3200.0500, L3890.6202 #### [facility] [address] [place], [address] ALK PHOS 341 U/L High 35-104 [facility] Comment on above: Performed By: #### L 3100.0460, L3100.0300, L500.3400, L3100.6900, L3100.5450, L3200.0500, L3890.6202 #### [facility] [address] [place], [address] ALT [Catalytic activity/Vol] 74 U/L High <=34 [facility] Comment on above: Performed By: #### L 3100.0460, L3100.0300, L500.3400, L3100.6900, L3100.5450, L3200.0500, L3890.6202 #### [facility] [address] [place], [address] AST [Catalytic activity/Vol] 58 U/L High <=31 [facility] Comment on above: Performed By: #### L 3100.0460, L3100.0300, L500.3400, L3100.6900, L3100.5450, L3200.0500, L3890.6202 #### [facility] [address] [place], [address] Bilirubin [Mass/Vol] 0.64 mg/dL Normal 0.00-1.30 [facility] [place] Comment on above: Performed By: #### L 3100.0460, L3100.0300, L500.3400, L3100.6900, L3100.5450, L3200.0500, L3890.6202 #### [facility] [address] [place], [address] (806) Bilirubin.direct [Mass/Vol] 0.30 mg/dL Normal 0.00-0.30 [facility] Comment on above: Performed By: #### L 3100.0460, L3100.0300, L500.3400, L3100.6900, L3100.5450, L3200.0500, L3890.6202 #### [facility] [address] [place], [address] (271) Globulin (S) [Mass/Vol] 3.5 g/dL Normal 2.2-4.2 [facility] Comment on above: Performed By: #### L 3100.0460, L3100.0300, L500.3400, L3100.6900, L3100.5450, L3200.0500, L3890.6202 #### [facility] [address] [place], [address] (341) T PROT 8.0 g/dL Normal 5.9-8.4 [facility] Comment on above: Performed By: #### L 3100.0460, L3100.0300, L500.3400, L3100.6900, L3100.5450, L3200.0500, L3890.6202 #### [facility] [address] [place], [address] Serum IgG subclass 1 measure ment (mass/volume)Ordered By: Jazmine Culver on 02-15-2025 IgG subclass 1 (S) [Mass/Vol] 681 mg/dL 248-810 [facility] Serum IgG subclass 2 measure ment (mass/volume)Ordered By: Jazmine Culver on 02-15-2025 IgG subclass 2 (S) [Mass/Vol] 514 mg/dL 130-555 [facility] Serum IgG subclass 3 measure ment (mass/volume)Ordered By: Jazmine Culver on 02-15-2025 IgG subclass 3 (S) [Mass/Vol] 48 mg/dL 15-102 [facility] Serum globulin measurementOr dered By: Jazmine Culver on 02-15-2025 Globulin (S) [Mass/Vol] 3.5 g/dL 2.2-4.2 [facility] Serum hepatitis B virus core antibody detectionOrdered By: Jazmine Culver on 02-15-2025 HBV core Ab Ql (S) Negative Negative [facility] Serum hepatitis B virus surf bridgette antibody detectionOrdered By: Jazmine Culver on 02-15-2025 HBV surface Ab Ql (S) Non-Reactive [facility] Comment on above: <8.5 mIU/mL: Non-Michael ctive8.5<= x <11.5 mIU/mL: Indeterminate>=11.5 mIU/mL: Reactive Non Reactive: Inconsistent with immunity less than <10 mIU/mL Reactive: Consistent with immunity greater than or equal to 10 mIU/mL Serum or plasma IgG measurem ent (mass/volume)Ordered By: Jazmine Culver on 02-15-2025 IgG [Mass/Vol] 1401 mg/dL 586-1602 [facility] Serum or plasma alanine martinez otransferase (ALT) measurementOrdered By: Jazmine Culver on 02-15-2025 ALT [Catalytic activity/Vol] 74 U/L High <35 [facility] Serum or plasma albumin miguelangel urement (mass/volume)Ordered By: Jazmine Culver on 02-15-2025 Albumin [Mass/Vol] 4.5 g/dL 3.4-4.8 [facility] Serum or plasma alkaline nikolas sphatase measurementOrdered By: Jazmine Culver on 02-15-2025 ALP [Catalytic activity/Vol] 341 U/L High 35-104 [facility] Serum or plasma angiotensin converting enzyme measurement (enzymatic activity/volume)Ordered By: Jazmine Culver on 02-15-2025 Angiotensin converting enzyme [Catalytic activity/Vol] 25 U/L 14 [facility] Total proteinOrdered By: Yadira Culver on 02-15-2025 Protein [Mass/Vol] 8.0 g/dL 5.9-8.4 [facility] US ABDOMEN LIMITEDon 025 US ABDOMEN LIMITED ORIGINAL EXAMINATION: RIGHT UPPER QUADRANT ULTRASOUND 01/08/2025 8:53 am COMPARISON: None. HISTORY: ORDERING SYSTEM PROVIDED HISTORY: Reason for Exam: elevated liver enzymes, GGT All images are recorded and archived. FINDINGS: LIVER: The liver demonstrates normal echogenicity without evidence of intrahepatic biliary ductal dilatation. Liver measures 14.3 cm in length with normal hepatopetal flow in the main portal vein. BILIARY SYSTEM: Gallbladder surgically absent. Common bile duct measures 12.1 mm in dimension without choledocholith. Appearance may relate to reservoir effect. RIGHT KIDNEY: The right kidney is grossly unremarkable without evidence of hydronephrosis. Kidney measures 9.1 x 4.7 x 4.4 cm with appropriate cortical thickness and echotexture. PANCREAS: Visualized portions of the pancreas are unremarkable. OTHER: No evidence of right upper quadrant ascites. IMPRESSION: 1. Status post cholecystectomy with dilated common bile duct measuring 12.1 mm. This may relate to reservoir effect. 2. No acute right upper quadrant pathology. Interpreted by: Yahir Cagle DO Preliminary Report By: Yahir Cagle DO Electronically signed By Yahir Cagle DO Dictated Date: 01/08/2025 10:50:00 AM Prelim Date: 01/08/2025 10:51:20 AM Sign Date: 01/08/2025 10:51:20 AM Ordering Provider: BEBE YAN Normal [facility] GGTon 01-05-2025 Gamma GT 345 U/L High 5-55 [facility] Comment on above: Performed By: #### G FR, CMP, TSHR, A1C, LIPID, FT4 #### [facility] [place] [address] [place], [place] [address] HEPACon 01-05-2025 Hep A IgM Ab Non-Reactive Normal Non-Reactive [facility] Comment on above: Performed By: #### G FR, CMP, TSHR, A1C, LIPID, FT4 #### [place] [address] Hep A IgM Ab Int See [facility] [place] [facility] Comment on above: Result Comment: Clinical Interpretation: No serological evidence of a current Hepatitis A infection. Performed By: #### G FR, CMP, TSHR, A1C, LIPID, FT4 #### [place] [address] Hep B Core IgM Ab Non-Reactive Normal Non-Reactive [facility] Comment on above: Performed By: #### G FR, CMP, TSHR, A1C, LIPID, FT4 #### [place] [address] Hep B Core IgM Ab Int See [facility] Comment on above: Result Comment: Clinical Interpretation: Samples with a value < 0.80 Index are considered nonreactive (negative) for IgM antibodies to hepatitis B core antigen. Performed By: #### G FR, CMP, TSHR, A1C, LIPID, FT4 #### [place] [address] Hep B Surf Ag Non-Reactive [facility] Comment on above: Performed By: #### G FR, CMP, TSHR, A1C, LIPID, FT4 #### [place] [address] Hep C Ab Non-Reactive Normal [facility] Comment on above: Performed By: #### G FR, CMP, TSHR, A1C, LIPID, FT4 #### [place] [address] Hep C Ab Int See [facility] [place] [facility] Comment on above: Result Comment: Clinical Interpretation: Nonreactive: Samples with a value < 0.80 are considered nonreactive (negative) for antibodies to HCV. A negative test result does not exclude the possibility of exposure to or infection with HCV. HCV antibodies may be undetectable in some stages of the infection and in some clinical conditions. Performed By: #### G FR, CMP, TSHR, A1C, LIPID, FT4 #### [address]20[address] Bili Indirect 0.5 mg/dL Normal [facility] Comment on above: Performed By: #### G FR, CMP, TSHR, A1C, LIPID, FT4 #### [address] [address] Albumin Level 3.8 G/dL Normal 3.4-4.8 [facility] Comment on above: Performed By: #### G FR, CMP, TSHR, A1C, LIPID, FT4 #### [address] [address] Albumin/Globulin [Mass ratio] 1.0 {ratio} Low 1.1-2.5 [facility] Comment on above: Performed By: #### G FR, CMP, TSHR, A1C, LIPID, FT4 #### [address] [address] ALP [Catalytic activity/Vol] 268 U/L High 40-135 [facility] Comment on above: Performed By: #### G FR, CMP, TSHR, A1C, LIPID, FT4 #### [address] [address] ALT [Catalytic activity/Vol] 63 U/L High 14-59 [facility] Comment on above: Performed By: #### G FR, CMP, TSHR, A1C, LIPID, FT4 #### [address] [address] AST [Catalytic activity/Vol] 38 U/L Normal 10-40 [facility] Comment on above: Performed By: #### G FR, CMP, TSHR, A1C, LIPID, FT4 #### [address] [address] Bili Direct 0.2 mg/dL Normal 0.0-0.2 [facility] Comment on above: Result Comment: Use of this assay is not recommended for patients undergoing treatment with eltrombopag due to the potential for falsely elevated results. Performed By: #### G FR, CMP, TSHR, A1C, LIPID, FT4 #### [address] [address] Bili Total 0.7 mg/dL Normal 0.2-1.0 [facility] Comment on above: Result Comment: Use of this assay is not recommended for patients undergoing treatment with eltrombopag due to the potential for falsely elevated results. Performed By: #### G FR, CMP, TSHR, A1C, LIPID, FT4 #### [address] [address] Globulin 3.8 G/dL Normal 2.7-4.4 [facility] Comment on above: Performed By: #### G FR, CMP, TSHR, A1C, LIPID, FT4 #### [address] [address] Total Protein 7.6 G/dL Normal 6.4-8.2 [facility] Comment on above: Performed By: #### G FR, CMP, TSHR, A1C, LIPID, FT4 #### [address] [address] LABORATORYOrdered By: SYSTEM SYSTEM on 01-05-2025 Albumin BCP dye [Mass/Vol] 3.8 G/dL Normal 3.4 - 4.8 G/dL AO ADM SS Albumin/Globulin [Mass ratio] 1.0 {ratio} Low 1.1 - 2.5 ratio AO ADM SS ALP [Catalytic activity/Vol] 268 U/L High 40 - 135 U/L AO ADM SS ALT With P-5'-P [Catalytic activity/Vol] 63 U/L High 14 - 59 U/L AO ADM SS AST With P-5'-P [Catalytic activity/Vol] 38 U/L Normal 10 - 40 U/L AO ADM SS Bilirubin [Mass/Vol] 0.7 mg/dL Normal 0.2 - 1 .0 mg/dL AO ADM SS Comment on above: Interpretive Data: U se of this assay is not recommended for patients undergoing treatment with eltrombopag due to the potential for falsely elevated results. Bilirubin.direct [Mass/Vol] 0.5 mg/dL Invalid Interpretation Code AO Chemistry S Bilirubin.direct [Mass/Vol] 0.2 mg/dL Normal 0.0 - 0.2 mg/dL AO ADM SS Comment on above: Interpretive Data: U se of this assay is not recommended for patients undergoing treatment with eltrombopag due to the potential for falsely elevated results. Gamma glutamyl transferase [Catalytic activity/Vol] 345 U/L High 5 - 55 U/L AH ADM SS Globulin 3.8 G/dL Normal 2.7 - 4.4 G/dL AO ADM SS INR Coag (PPP) [Relative time] 1.0 {INR} Invalid Interpretation Code AO [facility] SS Comment on above: Interpretive Data: [employer]uv[employer] (CHEST, 1991, 102:312S-25S) recommended therapeutic range for oral anticoagulant therapy is: LOW RISK: Prophylaxis of venous thrombosis INR: 2.0-3.0 Treatment of pulmonary embolism 2.0-3.0 Prevention of systemic embolism 2.0-3.0 HIGH RISK: Mechanical prosthetic valves 2.5-3.5 Protein [Mass/Vol] 7.6 G/dL Normal 6.4 - 8.2 G/dL AO ADM SS PT Coag (PPP) [Time] 11.9 s Normal 9.0 - 1 4.4 seconds AO [facility] SS TSH Qn 0.38 m[IU]/L Normal 0.36 - 3.74 mcIU/mL AO ADM SS LABORATORYOrdered By: Mehreen Fox on 01-05-2025 HAV IgM IA Ql See Interp 5 *NA* (01/05/25 8:25 AM) Invalid Interpretation Code Chemistry S Comment on above: Result Comment: Clinical Interpretation: No serological evidence of a current Hepatitis A infection. HAV IgM IA Ql Non-Reactive (01/05/25 8:25 AM) Normal Non-Reactive AH ADM SS HBV core IgM IA Ql See Interp 4 *NA* (01/05/25 8:25 AM) Invalid Interpretation Code AH Chemistry S Comment on above: Result Comment: Clinical Interpretation: Samples with a value < 0.80 Index are considered nonreactive (negative) for IgM antibodies to hepatitis B core antigen. HBV core IgM IA Ql Non-Reactive (01/05/25 8:25 AM) Normal Non-Reactive AH ADM SS HBV surface Ag IA Ql Non-Reactive (01/05/25 8:25 AM) Normal Non-Reactive AH ADM SS HCV Ab IA Ql Non-Reactive (01/05/25 8:25 AM) Normal Non-Reactive AH ADM SS HCV Ab IA Ql See Interp 6 *NA* (01/05/25 8:25 AM) Invalid Interpretation Code AH Chemistry S Comment on above: Result Comment: Clinical Interpretation: Nonreactive: Samples with a value < 0.80 are considered nonreactive (negative) for antibodies to HCV. A negative test result does not exclude the possibility of exposure to or infection with HCV. HCV antibodies may be undetectable in some stages of the infection and in some clinical conditions. PROon 01-05-2025 PT Coag (PPP) [Time] 11.9 s Normal 9.0-14.4 [facility] Comment on above: Performed By: #### T SHR, HFP, PRO ####[place] [address]#### GGT, HEPAC ####[address] [address] PT International Ratio 1.0 Normal [facility] Comment on above: Result Comment: [employer] (CHEST, 1992, 102:312S-25S) recommended therapeutic range for oral anticoagulant therapy is: LOW RISK: Prophylaxis of venous thrombosis INR: 2.0-3.0 Treatment of pulmonary embolism 2.0-3.0 Prevention of systemic embolism 2.0-3.0 HIGH RISK: Mechanical prosthetic valves 2.5-3.5 Performed By: #### T SHR, HFP, PRO ####[place] [id number]#### GGT, HEPAC ####[address] [address] TSHRon 01-05-2025 TSH Qn 0.38 m[IU]/L Normal 0.36-3.74 [facility] Comment on above: Performed By: #### G FR, CMP, TSHR, A1C, LIPID, FT4 #### [address] [address] .GFRon 11-16-2024 Estimated Glomerular Filtration Rate 73 ml/min/1.73sqm Normal [facility] Comment on above: Result Comment: Stages of Chronic Kidney Disease (CKD) Stage Description eGFR(ml/min/1.73 sq.m.) CKD 1 Normal kidney function or >=90 normal kindney function with possible kidney damage (ex. Proteinuria) CKD 2 Kidney damage with mild loss 60-89 of kidney function CKD 3a Mild to moderate loss of kidney 45-59 function CKD 3b Moderate to severe loss of 30-44 of kindey function CKD 4 Severe loss of kidney function 15-29 CKD 5 Kidney failure <15 Note: (go live 2024) the eGFR calculation was updated to the 2020 CKD-EPI creatinine equation without a race factor to calculate the eGFR results. Performed By: #### F T4, LIPID, GFR, A1C, TSH, TSHR, CMP ####[place] [id number] [place], [place] [address] A1Con 11-16-2024 Glucose [Mass/Vol] 131 mg/dL Normal [facility] Comment on above: Result Comment: Kailey mated Average Glucose calculated by equation ((28.7xA1C)-46.7) Estimated average glucose (eAG) is a calculated value from Hemoglobin A1C and is credit representative of the average blood glucose level in the last 2-3 month period. Normal range: less than 114 mg/dL Performed By: #### F T4, LIPID, GFR, A1C, TSH, TSHR, CMP #### [address] [address] HbA1c (Bld) [Mass fraction] 6.2 % Normal 4.3-6.4 [facility] Comment on above: Performed By: #### F T4, LIPID, GFR, A1C, TSH, TSHR, CMP #### [address] [address] CMPon 11-16-2024 Albumin Level 3.6 G/dL Normal 3.4-4.8 [facility] Comment on above: Performed By: #### F T4, LIPID, GFR, A1C, TSH, TSHR, CMP ####[address] [address] Albumin/Globulin [Mass ratio] 0.9 {ratio} Low 1.1-2.5 [facility] Comment on above: Performed By: #### F T4, LIPID, GFR, A1C, TSH, TSHR, CMP ####[address] [address] ALP [Catalytic activity/Vol] 266 U/L High 40-135 [facility] Comment on above: Performed By: #### F T4, LIPID, GFR, A1C, TSH, TSHR, CMP ####[address] [address] ALT [Catalytic activity/Vol] 62 U/L High 14-59 [facility] Comment on above: Performed By: #### F T4, LIPID, GFR, A1C, TSH, TSHR, CMP ####[address] [address] AST [Catalytic activity/Vol] 36 U/L Normal 10-40 [facility] Comment on above: Performed By: #### F T4, LIPID, GFR, A1C, TSH, TSHR, CMP ####[address] [address] Bili Total 0.7 mg/dL Normal 0.2-1.0 [facility] Comment on above: Result Comment: Use of this assay is not recommended for patients undergoing treatment with eltrombopag due to the potential for falsely elevated results. Performed By: #### F T4, LIPID, GFR, A1C, TSH, TSHR, CMP ####[address] [address] BUN/Creatinine Ratio 27 ratio Normal 7-27 [facility] Comment on above: Performed By: #### F T4, LIPID, GFR, A1C, TSH, TSHR, CMP ####[address] [address] Calcium [Mass/Vol] 9.1 mg/dL Normal 8.4-10.2 [facility] Comment on above: Performed By: #### F T4, LIPID, GFR, A1C, TSH, TSHR, CMP ####[place] [address] [place], [place] [address] Chloride [Moles/Vol] 100 mmol/L Normal 98-107 [facility] Comment on above: Performed By: #### F T4, LIPID, GFR, A1C, TSH, TSHR, CMP ####[address] [address] CO2 [Moles/Vol] 28 mmol/L Normal 23-31 [facility] Comment on above: Performed By: #### F T4, LIPID, GFR, A1C, TSH, TSHR, CMP ####[place] [address] Creatinine [Mass/Vol] 0.85 mg/dL Normal 0.51-0.95 [facility] Comment on above: Performed By: #### F T4, LIPID, GFR, A1C, TSH, TSHR, CMP ####[place] [id number] [place] [address] Electrolyte Balance 7.0 mEq/L Normal 4.0-15.0 [facility] Comment on above: Performed By: #### F T4, LIPID, GFR, A1C, TSH, TSHR, CMP ####[place] [address] Globulin 3.8 G/dL Normal 2.7-4.4 [facility] Comment on above: Performed By: #### F T4, LIPID, GFR, A1C, TSH, TSHR, CMP ####[place] [address] Glucose [Mass/Vol] 111 mg/dL High 83-110 [facility] Comment on above: Performed By: #### F T4, LIPID, GFR, A1C, TSH, TSHR, CMP ####[place] [address] Potassium [Moles/Vol] 4.3 mmol/L Normal 3.5-5.1 [facility] Comment on above: Performed By: #### F T4, LIPID, GFR, A1C, TSH, TSHR, CMP ####[place] [address] Sodium [Moles/Vol] 135 mmol/L Low 136-145 [facility] Comment on above: Performed By: #### F T4, LIPID, GFR, A1C, TSH, TSHR, CMP ####[address] [place], [place] [address] Total Protein 7.4 G/dL Normal 6.4-8.2 [facility] Comment on above: Performed By: #### F T4, LIPID, GFR, A1C, TSH, TSHR, CMP ####[address] [place], [place] [address] Urea nitrogen [Mass/Vol] 23 mg/dL High 7-18 [facility] Comment on above: Performed By: #### F T4, LIPID, GFR, A1C, TSH, TSHR, CMP ####[address] [place], [place] [address] FT4on 11-16-2024 Free T4 [Mass/Vol] 1.30 ng/dL Normal 0.76-1.46 [facility] Comment on above: Performed By: #### F T4, LIPID, GFR, A1C, TSH, TSHR, CMP ####[address] [place], [place] [address] LABORATORYOrdered By: SYSTEM SYSTEM on 11-16-2024 Albumin BCP dye [Mass/Vol] 3.6 G/dL Normal 3.4 - 4.8 G/dL AO ADM SS Albumin/Globulin [Mass ratio] 0.9 {ratio} Low 1.1 - 2.5 ratio AO ADM SS ALP [Catalytic activity/Vol] 266 U/L High 40 - 135 U/L AO ADM SS ALT With P-5'-P [Catalytic activity/Vol] 62 U/L High 14 - 59 U/L AO ADM SS AST With P-5'-P [Catalytic activity/Vol] 36 U/L Normal 10 - 40 U/L AO ADM SS Bilirubin [Mass/Vol] 0.7 mg/dL Normal 0.2 - 1 .0 mg/dL AO ADM SS Comment on above: Interpretive Data: U se of this assay is not recommended for patients undergoing treatment with eltrombopag due to the potential for falsely elevated results. Calcium [Mass/Vol] 9.1 mg/dL Normal 8.4 - 10. 2 mg/dL AO ADM SS Chloride [Moles/Vol] 100 mmol/L Normal 98 - 10 7 mmol/L AO ADM SS CO2 [Moles/Vol] 28 mmol/L Normal 23 - 31 mmol/L AO AD M SS Creatinine [Mass/Vol] 0.85 mg/dL Normal 0.51 - 0.95 mg/dL AO ADM SS Electrolyte Balance 7.0 mEq/L Normal 4.0 - 15 .0 mEq/L AO ADM SS Estimated Glomerular Filtration Rate 73 ml/min/1.73sqm Invalid Interpretation Code AO Chemistry S Comment on above: Interpretive Data: Stages of Chronic Kidney Disease (CKD) Stage Description eGFR(ml/min/1.73 sq.m.) CKD 1 Normal kidney function or >=90 normal kindney function with possible kidney damage (ex. Proteinuria) CKD 2 Kidney damage with mild loss 60-89 of kidney function CKD 3a Mild to moderate loss of kidney 45-59 function CKD 3b Moderate to severe loss of 30-44 of kindey function CKD 4 Severe loss of kidney function 15-29 CKD 5 Kidney failure <15 Note: (go live 2024) the eGFR calculation was updated to the 2020 CKD-EPI creatinine equation without a race factor to calculate the eGFR results. Free T4 [Mass/Vol] 1.30 ng/dL Normal 0.76 - 1. 46 ng/dL AO ADM SS Globulin 3.8 G/dL Normal 2.7 - 4.4 G/dL AO ADM SS Glucose [Mass/Vol] 111 mg/dL High 83 - 110 mg/dL AO ADM SS Glucose [Mass/Vol] 131 mg/dL Invalid Interpretation Code AO Chemistry S Comment on above: Interpretive Data: E stimated average glucose (eAG) is a calculated value from Hemoglobin A1C and is credit representative of the average blood glucose level in the last 2-3 month period. Normal range: less than 114 mg/dL HbA1c (Bld) [Mass fraction] 6.2 % Normal 4.3 - 6.4 % AO ADM SS Potassium [Moles/Vol] 4.3 mmol/L Normal 3.5 - 5.1 mmol/L AO ADM SS Protein [Mass/Vol] 7.4 G/dL Normal 6.4 - 8.2 G/dL AO ADM SS Sodium [Moles/Vol] 135 mmol/L Low 136 - 145 mmol/L AO ADM SS Urea nitrogen [Mass/Vol] 23 mg/dL High 7 - 18 mg/dL AO ADM SS Urea nitrogen/Creatinine [Mass ratio] 27 ratio Normal 7 - 27 ratio AO ADM SS LABORATORYOrdered By: Bud Healy on 11-16-2024 Cholesterol [Mass/Vol] 154 mg/dL Normal 0 - 200 mg/dL AO ADM SS Comment on above: Interpretive Data: C holesterol Reference Interval: Less than 200 Desirable 200-239 Borderline high risk 240 and above High risk Cholesterol in HDL [Mass/Vol] 59 mg/dL Normal 40 - 60 mg/dL AO ADM SS Cholesterol in LDL [Mass/Vol] 75 mg/dL Normal 0 - 130 mg/dL AO ADM SS Triglyceride [Mass/Vol] 99 mg/dL Normal 0 - 150 mg/dL AO ADM SS Comment on above: Interpretive Data: T riglyceride Reference Interval: Less than 150 Normal 150-199 Borderline high risk 200-499 High risk 500 or higher Very high risk LIPIDon 11-16-2024 Cholesterol [Mass/Vol] 154 mg/dL Normal 0-200 [facility] Comment on above: Result Comment: Chol esterol Reference Interval: Less than 200 Desirable 200-239 Borderline high risk 240 and above High risk Performed By: #### F T4, LIPID, GFR, A1C, TSH, TSHR, CMP ####[address] [place], [place] [address] Cholesterol in HDL [Mass/Vol] 59 mg/dL Normal 40-60 [facility] Comment on above: Performed By: #### F T4, LIPID, GFR, A1C, TSH, TSHR, CMP ####[address] [place], [place] [address] Cholesterol in LDL [Mass/Vol] 75 mg/dL Normal 0-130 [facility] Comment on above: Performed By: #### F T4, LIPID, GFR, A1C, TSH, TSHR, CMP ####[address] [place], [place] [address] Triglyceride [Mass/Vol] 99 mg/dL Normal 0-150 [facility] Comment on above: Result Comment: Trig lyceride Reference Interval: Less than 150 Normal 150-199 Borderline high risk 200-499 High risk 500 or higher Very high risk Performed By: #### F T4, LIPID, GFR, A1C, TSH, TSHR, CMP ####[place] [address] [place], [place] [address] Laboratory - Chemistry and C hemistry - challengeOrdered By: SYSTEM SYSTEM on 11-16-2024 TSH Qn 0.15 m[IU]/L Low 0.36 - 3.74 mcIU/mL AO ADM SS TSHon 11-16-2024 TSH Qn 0.15 m[IU]/L Low 0.36-3.74 [facility] Comment on above: Performed By: #### F T4, LIPID, GFR, A1C, TSH, TSHR, CMP #### [place] [address] [place], [place] [address] Performed By: #### F T4, LIPID, GFR, A1C, TSH, TSHR, CMP ####[place] [address] [place], [place] [address] MA MAMMOGRAM SCREENING BILAT ERAL W/TOMOon 09-30-2024 MA MAMMOGRAM SCREENING BILATERAL W/DEANNA ORIGINAL FROM: [address] [address] PROCEDURE FOR: KHOI CAPUTO [address] [place] [address] Home: PID#: [id number] Exam#: [id number] : 1950 Age: 73 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 2D standard and 3D tomosynthesis combination imaging performed through both breasts in the MLO and CC projection. Computer aided detection was utilized in the interpretation of this exam. COMPARISON: August 30, 2023, July 11, 2022, July 10, 2021 HISTORY: Breast cancer screening. FINDINGS: BREAST DENSITY: The breasts are heterogeneously dense, which may obscure small masses. There are bilateral benign-type calcifications. There is no significant mass, architectural distortion or microcalcification. Fibroglandular pattern is stable. IMPRESSION: No mammographic evidence of malignancy. Continued screening with annual mammograms is recommended. Estephanie Thompson risk calculations, generated with the history provided, report this patient's 10 year risk and lifetime risk for developing breast cancer at 11.5% and 16.5%, respectively. Based on this assessment tool, if the patient's calculated lifetime risk is below 20%, then the patient is considered at average risk for developing breast cancer. If the patient's calculated lifetime risk is at or above 20%, then the patient is considered high risk for developing breast cancer and may be a candidate for supplemental breast MRI screening in addition to annual mammographic screening per the [employer]. BIRADS: MAMMOGRAM BI-RADS: 2: Benign finding RECALL: 1 year screening RECALL TYPE: mammo LETTER SENT: Normal BI-RADS 1 and 2 Interpreted by: Madeleine Colbert Preliminary Report By: Madeleine Colbert Electronically signed By Madeleine Colbert Dictated Date: 09/30/2024 9:12:54 AM Prelim Date: 09/30/2024 9:16:33 AM Sign Date: 09/30/2024 9:16:33 AM Ordering Provider: BEBE YAN Insurance Appraiser: EDITH LAL RT(R)(M)(CT) letter sent: Normal BI-RADS 1 and 2 Mammogram BI-RADS: 2 Benign Normal [facility] .GFRon 05-11-2024 GFR Non- 58 ml/min/1.73sqm Normal [facility] Comment on above: Result Comment: GFR Population mean for , Non- Americans Ages 20-29 = 116 mL/min/1.73 sq.m. Ages 30-39 = 107 mL/min/1.73 sq.m. Ages 40-49 = 99 mL/min/1.73 sq.m. Ages 50-59 = 93 mL/min/1.73 sq.m. Ages 60-69 = 85 mL/min/1.73 sq.m. Ages 70+ = 75 mL/min/1.73 sq.m. Chronic Kidney Disease: Less than 60 mL/min/1.73 square meters End Stage Renal Disease: Less than 15 mL/min/1.73 square meters Performed By: #### L IPID, CMP, TSHR, GFR ####[address] [address] GFR 70 ml/min/1.73sqm Normal [facility] Comment on above: Result Comment: GFR Population mean for , Non- Americans Ages 20-29 = 116 mL/min/1.73 sq.m. Ages 30-39 = 107 mL/min/1.73 sq.m. Ages 40-49 = 99 mL/min/1.73 sq.m. Ages 50-59 = 93 mL/min/1.73 sq.m. Ages 60-69 = 85 mL/min/1.73 sq.m. Ages 70+ = 75 mL/min/1.73 sq.m. Chronic Kidney Disease: Less than 60 mL/min/1.73 square meters End Stage Renal Disease: Less than 15 mL/min/1.73 square meters Performed By: #### L IPID, CMP, TSHR, GFR ####[facility] [address] [place], [place] [address] CMPon 05-11-2024 Albumin Level 4.0 G/dL Normal 3.4-4.8 [facility] Comment on above: Performed By: #### L IPID, CMP, TSHR, GFR ####[facility] [address] [place], [place] [address] Albumin/Globulin [Mass ratio] 1.2 {ratio} Normal 1.1-2.5 [facility] Comment on above: Performed By: #### L IPID, CMP, TSHR, GFR ####[facility] [address] [place], [place] [address] ALP [Catalytic activity/Vol] 79 U/L Normal 40-135 [facility] Comment on above: Performed By: #### L IPID, CMP, TSHR, GFR ####[facility] [place], [place] [address] ALT [Catalytic activity/Vol] 15 U/L Normal 14-59 [facility] Comment on above: Performed By: #### L IPID, CMP, TSHR, GFR ####[facility] [id number] [place], [place] [address] AST [Catalytic activity/Vol] 10 U/L Normal 10-40 [facility] Comment on above: Performed By: #### L IPID, CMP, TSHR, GFR ####[facility] [address] [address] Bili Total 0.5 mg/dL Normal 0.2-1.0 [facility] Comment on above: Result Comment: Use of this assay is not recommended for patients undergoing treatment with eltrombopag due to the potential for falsely elevated results. Performed By: #### L IPID, CMP, TSHR, GFR ####[place] [address] [address] BUN/Creatinine Ratio 22 ratio Normal 7-27 [facility] Comment on above: Performed By: #### L IPID, CMP, TSHR, GFR ####[address] [place], [place] [address] Calcium [Mass/Vol] 9.3 mg/dL Normal 8.4-10.2 [facility] Comment on above: Performed By: #### L IPID, CMP, TSHR, GFR ####[address] [address] Chloride [Moles/Vol] 103 mmol/L Normal 98-107 [facility] Comment on above: Performed By: #### L IPID, CMP, TSHR, GFR ####[address] [address] CO2 [Moles/Vol] 26 mmol/L Normal 23-31 [facility] Comment on above: Performed By: #### L IPID, CMP, TSHR, GFR ####[address] [place], [place] [address] Creatinine [Mass/Vol] 0.95 mg/dL Normal 0.55-1.02 [facility] Comment on above: Result Comment: Test ing performed on Siemens Dimension EXL analyzer using a modified kinetic Mak technique. Performed By: #### L IPID, CMP, TSHR, GFR ####[place] [address] [place], [place] [address] Electrolyte Balance 11.0 mEq/L Normal 4.0-15.0 [facility] Comment on above: Performed By: #### L IPID, CMP, TSHR, GFR ####[address] [place], [place] [address] Globulin 3.2 G/dL Normal [facility] Comment on above: Performed By: #### L IPID, CMP, TSHR, GFR ####[address] [place], [place] [address] Glucose [Mass/Vol] 117 mg/dL High 83-110 [facility] Comment on above: Performed By: #### L IPID, CMP, TSHR, GFR ####[address] [place], [place] [address] Potassium [Moles/Vol] 4.9 mmol/L Normal 3.5-5.1 [facility] Comment on above: Performed By: #### L IPID, CMP, TSHR, GFR ####[address] [place], [place] [address] Sodium [Moles/Vol] 140 mmol/L Normal 136-145 [facility] Comment on above: Performed By: #### L IPID, CMP, TSHR, GFR ####[place] [address] [place], [place] [address] Total Protein 7.2 G/dL Normal 6.4-8.2 [facility] Comment on above: Performed By: #### L IPID, CMP, TSHR, GFR ####[address] [place], [place] [address] Urea nitrogen [Mass/Vol] 21 mg/dL High 7-18 [facility] Comment on above: Performed By: #### L IPID, CMP, TSHR, GFR ####[address] [place], [place] [address] LABORATORYOrdered By: SYSTEM SYSTEM on 05-11-2024 Albumin BCP dye [Mass/Vol] 4.0 G/dL Normal 3.4 - 4.8 G/dL AO ADM SS Albumin/Globulin [Mass ratio] 1.2 {ratio} Normal 1.1 - 2.5 ratio AO ADM SS ALP [Catalytic activity/Vol] 79 U/L Normal 40 - 135 U/L AO ADM SS ALT With P-5'-P [Catalytic activity/Vol] 15 U/L Normal 14 - 59 U/L AO ADM SS AST With P-5'-P [Catalytic activity/Vol] 10 U/L Normal 10 - 40 U/L AO ADM SS Bilirubin [Mass/Vol] 0.5 mg/dL Normal 0.2 - 1 .0 mg/dL AO ADM SS Comment on above: Interpretive Data: U se of this assay is not recommended for patients undergoing treatment with eltrombopag due to the potential for falsely elevated results. Calcium [Mass/Vol] 9.3 mg/dL Normal 8.4 - 10. 2 mg/dL AO ADM SS Chloride [Moles/Vol] 103 mmol/L Normal 98 - 10 7 mmol/L AO ADM SS CO2 [Moles/Vol] 26 mmol/L Normal 23 - 31 mmol/L AO AD M SS Creatinine [Mass/Vol] 0.95 mg/dL Normal 0.55 - 1.02 mg/dL AO ADM SS Comment on above: Interpretive Data: T esting performed on Siemens Dimension EXL analyzer using a modified kinetic Mak technique. Electrolyte Balance 11.0 mEq/L Normal 4.0 - 15 .0 mEq/L AO ADM SS GFR/1.73 sq M.predicted among blacks MDRD (S/P/Bld) [Vol rate/Area] 70 ml/min/1.73sqm Invalid Interpretation Code AO Chemistry S Comment on above: Interpretive Data: GFR Population mean for , Non- Americans Ages 20-29 = 116 mL/min/1.73 sq.m. Ages 30-39 = 107 mL/min/1.73 sq.m. Ages 40-49 = 99 mL/min/1.73 sq.m. Ages 50-59 = 93 mL/min/1.73 sq.m. Ages 60-69 = 85 mL/min/1.73 sq.m. Ages 70+ = 75 mL/min/1.73 sq.m. Chronic Kidney Disease: Less than 60 mL/min/1.73 square meters End Stage Renal Disease: Less than 15 mL/min/1.73 square meters GFR/1.73 sq M.predicted among non-blacks MDRD (S/P/Bld) [Vol rate/Area] 58 ml/min/1.73sqm Invalid Interpretation Code AO Chemistry S Comment on above: Interpretive Data: GFR Population mean for , Non- Americans Ages 20-29 = 116 mL/min/1.73 sq.m. Ages 30-39 = 107 mL/min/1.73 sq.m. Ages 40-49 = 99 mL/min/1.73 sq.m. Ages 50-59 = 93 mL/min/1.73 sq.m. Ages 60-69 = 85 mL/min/1.73 sq.m. Ages 70+ = 75 mL/min/1.73 sq.m. Chronic Kidney Disease: Less than 60 mL/min/1.73 square meters End Stage Renal Disease: Less than 15 mL/min/1.73 square meters Globulin 3.2 G/dL Invalid Interpretation Code AO ADM SS Glucose [Mass/Vol] 117 mg/dL High 83 - 110 mg/dL AO ADM SS Potassium [Moles/Vol] 4.9 mmol/L Normal 3.5 - 5.1 mmol/L AO ADM SS Protein [Mass/Vol] 7.2 G/dL Normal 6.4 - 8.2 G/dL AO ADM SS Sodium [Moles/Vol] 140 mmol/L Normal 136 - 145 mmol/L AO ADM SS TSH Qn 1.28 m[IU]/L Normal 0.36 - 3.74 mcIU/mL AO ADM SS Urea nitrogen [Mass/Vol] 21 mg/dL High 7 - 18 mg/dL AO ADM SS Urea nitrogen/Creatinine [Mass ratio] 22 ratio Normal 7 - 27 ratio AO ADM SS LABORATORYOrdered By: Lelia Treadwell on 05-11-2024 Cholesterol [Mass/Vol] 164 mg/dL Normal 0 - 200 mg/dL AO ADM SS Comment on above: Interpretive Data: C holesterol Reference Interval: Less than 200 Desirable 200-239 Borderline high risk 240 and above High risk Cholesterol in HDL [Mass/Vol] 55 mg/dL Normal 40 - 60 mg/dL AO ADM SS Cholesterol in LDL [Mass/Vol] 90 mg/dL Normal 0 - 130 mg/dL AO ADM SS Triglyceride [Mass/Vol] 95 mg/dL Normal 0 - 150 mg/dL AO ADM SS Comment on above: Interpretive Data: T riglyceride Reference Interval: Less than 150 Normal 150-199 Borderline high risk 200-499 High risk 500 or higher Very high risk LIPIDon 05-11-2024 Cholesterol [Mass/Vol] 164 mg/dL Normal 0-200 [facility] Comment on above: Result Comment: Chol esterol Reference Interval: Less than 200 Desirable 200-239 Borderline high risk 240 and above High risk Performed By: #### L IPID, CMP, TSHR, GFR ####[id number] [place], [place] [address] Cholesterol in HDL [Mass/Vol] 55 mg/dL Normal 40-60 [facility] Comment on above: Performed By: #### L IPID, CMP, TSHR, GFR ####[id number] [place], [place] [address] Cholesterol in LDL [Mass/Vol] 90 mg/dL Normal 0-130 [facility] Comment on above: Performed By: #### L IPID, CMP, TSHR, GFR ####[id number] [place], [place] [address] Triglyceride [Mass/Vol] 95 mg/dL Normal 0-150 [facility] Comment on above: Result Comment: Trig lyceride Reference Interval: Less than 150 Normal 150-199 Borderline high risk 200-499 High risk 500 or higher Very high risk Performed By: #### L IPID, CMP, TSHR, GFR ####[id number] [place], [place] [address] TSHRon 05-11-2024 TSH Qn 1.28 m[IU]/L Normal 0.36-3.74 [facility] Comment on above: Performed By: #### L IPID, CMP, TSHR, GFR ####[id number] [place], [place] [address] .GFRon 04-07-2024 GFR 68 ml/min/1.73sqm Normal [facility] Comment on above: Result Comment: GFR Population mean for , Non- Americans Ages 20-29 = 116 mL/min/1.73 sq.m. Ages 30-39 = 107 mL/min/1.73 sq.m. Ages 40-49 = 99 mL/min/1.73 sq.m. Ages 50-59 = 93 mL/min/1.73 sq.m. Ages 60-69 = 85 mL/min/1.73 sq.m. Ages 70+ = 75 mL/min/1.73 sq.m. Chronic Kidney Disease: Less than 60 mL/min/1.73 square meters End Stage Renal Disease: Less than 15 mL/min/1.73 square meters Performed By: #### G FR, CMP, TSHR, A1C, LIPID, FT4 #### [address] [place], [place] [address] GFR Non- 56 ml/min/1.73sqm Normal [facility] Comment on above: Result Comment: GFR Population mean for , Non- Americans Ages 20-29 = 116 mL/min/1.73 sq.m. Ages 30-39 = 107 mL/min/1.73 sq.m. Ages 40-49 = 99 mL/min/1.73 sq.m. Ages 50-59 = 93 mL/min/1.73 sq.m. Ages 60-69 = 85 mL/min/1.73 sq.m. Ages 70+ = 75 mL/min/1.73 sq.m. Chronic Kidney Disease: Less than 60 mL/min/1.73 square meters End Stage Renal Disease: Less than 15 mL/min/1.73 square meters Performed By: #### G FR, CMP, TSHR, A1C, LIPID, FT4 #### [address] [place], [place] [address] A1Con 04-07-2024 Glucose [Mass/Vol] 140 mg/dL Normal [facility] Comment on above: Result Comment: Kailey mated Average Glucose calculated by equation ((28.7xA1C)-46.7) Estimated average glucose (eAG) is a calculated value from Hemoglobin A1C and is credit representative of the average blood glucose level in the last 2-3 month period. Normal range: less than 114 mg/dL Performed By: #### G FR, CMP, TSHR, A1C, LIPID, FT4 #### [address] [place], [place] [address] HbA1c (Bld) [Mass fraction] 6.5 % High 4.3-6.4 [facility] Comment on above: Performed By: #### G FR, CMP, TSHR, A1C, LIPID, FT4 #### [address] [address] CMPon 04-07-2024 Albumin Level 3.7 G/dL Normal 3.4-4.8 [facility] Comment on above: Performed By: #### G FR, CMP, TSHR, A1C, LIPID, FT4 #### [address] [address] Albumin/Globulin [Mass ratio] 1.0 {ratio} Low 1.1-2.5 [facility] Comment on above: Performed By: #### G FR, CMP, TSHR, A1C, LIPID, FT4 #### [address] [address] ALP [Catalytic activity/Vol] 122 U/L Normal 40-135 [facility] Comment on above: Performed By: #### G FR, CMP, TSHR, A1C, LIPID, FT4 #### [address] [address] ALT [Catalytic activity/Vol] 14 U/L Normal 14-59 [facility] Comment on above: Performed By: #### G FR, CMP, TSHR, A1C, LIPID, FT4 #### [address] [address] AST [Catalytic activity/Vol] 10 U/L Normal 10-40 [facility] Comment on above: Performed By: #### G FR, CMP, TSHR, A1C, LIPID, FT4 #### [address] [address] Bili Total 0.6 mg/dL Normal 0.2-1.0 [facility] Comment on above: Result Comment: Use of this assay is not recommended for patients undergoing treatment with eltrombopag due to the potential for falsely elevated results. Performed By: #### G FR, CMP, TSHR, A1C, LIPID, FT4 #### [address] [address] BUN/Creatinine Ratio 29 ratio High 7-27 [facility] Comment on above: Performed By: #### G FR, CMP, TSHR, A1C, LIPID, FT4 #### [address] [address] Calcium [Mass/Vol] 9.8 mg/dL Normal 8.4-10.2 [facility] Comment on above: Performed By: #### G FR, CMP, TSHR, A1C, LIPID, FT4 #### [address] [address] Chloride [Moles/Vol] 100 mmol/L Normal 98-107 [facility] Comment on above: Performed By: #### G FR, CMP, TSHR, A1C, LIPID, FT4 #### [address] [address] CO2 [Moles/Vol] 30 mmol/L Normal 23-31 [facility] Comment on above: Performed By: #### G FR, CMP, TSHR, A1C, LIPID, FT4 #### [address] [address] Creatinine [Mass/Vol] 0.98 mg/dL Normal 0.55-1.02 [facility] Comment on above: Result Comment: Test ing performed on Siemens Dimension EXL analyzer using a modified kinetic Mak technique. Performed By: #### G FR, CMP, TSHR, A1C, LIPID, FT4 #### [address] [address] Electrolyte Balance 7.0 mEq/L Normal 4.0-15.0 [facility] Comment on above: Performed By: #### G FR, CMP, TSHR, A1C, LIPID, FT4 #### [address] [address] Globulin 3.6 G/dL Normal [facility] Comment on above: Performed By: #### G FR, CMP, TSHR, A1C, LIPID, FT4 #### [address] [address] Glucose [Mass/Vol] 135 mg/dL High 83-110 [facility] Comment on above: Performed By: #### G FR, CMP, TSHR, A1C, LIPID, FT4 #### [address] [address] Potassium [Moles/Vol] 4.9 mmol/L Normal 3.5-5.1 [facility] Comment on above: Performed By: #### G FR, CMP, TSHR, A1C, LIPID, FT4 #### [address] [address] Sodium [Moles/Vol] 137 mmol/L Normal 136-145 [facility] Comment on above: Performed By: #### G FR, CMP, TSHR, A1C, LIPID, FT4 #### [address] [address] Total Protein 7.3 G/dL Normal 6.4-8.2 [facility] Comment on above: Performed By: #### G FR, CMP, TSHR, A1C, LIPID, [id number] #### [address] [address] Urea nitrogen [Mass/Vol] 28 mg/dL High 7-18 [facility] Comment on above: Performed By: #### G FR, CMP, TSHR, A1C, LIPID, FT4 #### [address] [address] FT4on 04-07-2024 Free T4 [Mass/Vol] 1.11 ng/dL Normal 0.76-1.46 [facility] Comment on above: Order Comment: Order ed by Discern Performed By: #### G FR, CMP, TSHR, A1C, LIPID, FT4 #### [address] [address] LABORATORYOrdered By: SYSTEM SYSTEM on 04-07-2024 Albumin BCP dye [Mass/Vol] 3.7 G/dL Normal 3.4 - 4.8 G/dL AO ADM SS Albumin/Globulin [Mass ratio] 1.0 {ratio} Low 1.1 - 2.5 ratio AO ADM SS ALP [Catalytic activity/Vol] 122 U/L Normal 40 - 135 U/L AO ADM SS ALT With P-5'-P [Catalytic activity/Vol] 14 U/L Normal 14 - 59 U/L AO ADM SS AST With P-5'-P [Catalytic activity/Vol] 10 U/L Normal 10 - 40 U/L AO ADM SS Bilirubin [Mass/Vol] 0.6 mg/dL Normal 0.2 - 1 .0 mg/dL AO ADM SS Comment on above: Interpretive Data: U se of this assay is not recommended for patients undergoing treatment with eltrombopag due to the potential for falsely elevated results. Calcium [Mass/Vol] 9.8 mg/dL Normal 8.4 - 10. 2 mg/dL AO ADM SS Chloride [Moles/Vol] 100 mmol/L Normal 98 - 10 7 mmol/L AO ADM SS CO2 [Moles/Vol] 30 mmol/L Normal 23 - 31 mmol/L AO AD M SS Creatinine [Mass/Vol] 0.98 mg/dL Normal 0.55 - 1.02 mg/dL AO ADM SS Comment on above: Interpretive Data: T esting performed on Siemens Dimension EXL analyzer using a modified kinetic Mak technique. Electrolyte Balance 7.0 mEq/L Normal 4.0 - 15 .0 mEq/L AO ADM SS Free T4 [Mass/Vol] 1.11 ng/dL Normal 0.76 - 1. 46 ng/dL AO ADM SS GFR/1.73 sq M.predicted among blacks MDRD (S/P/Bld) [Vol rate/Area] 68 ml/min/1.73sqm Invalid Interpretation Code AO Chemistry S Comment on above: Interpretive Data: GFR Population mean for , Non- Americans Ages 20-29 = 116 mL/min/1.73 sq.m. Ages 30-39 = 107 mL/min/1.73 sq.m. Ages 40-49 = 99 mL/min/1.73 sq.m. Ages 50-59 = 93 mL/min/1.73 sq.m. Ages 60-69 = 85 mL/min/1.73 sq.m. Ages 70+ = 75 mL/min/1.73 sq.m. Chronic Kidney Disease: Less than 60 mL/min/1.73 square meters End Stage Renal Disease: Less than 15 mL/min/1.73 square meters GFR/1.73 sq M.predicted among non-blacks MDRD (S/P/Bld) [Vol rate/Area] 56 ml/min/1.73sqm Invalid Interpretation Code AO Chemistry S Comment on above: Interpretive Data: GFR Population mean for , Non- Americans Ages 20-29 = 116 mL/min/1.73 sq.m. Ages 30-39 = 107 mL/min/1.73 sq.m. Ages 40-49 = 99 mL/min/1.73 sq.m. Ages 50-59 = 93 mL/min/1.73 sq.m. Ages 60-69 = 85 mL/min/1.73 sq.m. Ages 70+ = 75 mL/min/1.73 sq.m. Chronic Kidney Disease: Less than 60 mL/min/1.73 square meters End Stage Renal Disease: Less than 15 mL/min/1.73 square meters Globulin 3.6 G/dL Invalid Interpretation Code AO ADM SS Glucose [Mass/Vol] 135 mg/dL High 83 - 110 mg/dL AO ADM SS Glucose [Mass/Vol] 140 mg/dL Invalid Interpretation Code AO Chemistry S Comment on above: Interpretive Data: E stimated average glucose (eAG) is a calculated value from Hemoglobin A1C and is credit representative of the average blood glucose level in the last 2-3 month period. Normal range: less than 114 mg/dL HbA1c (Bld) [Mass fraction] 6.5 % High 4.3 - 6.4 % AO ADM SS Potassium [Moles/Vol] 4.9 mmol/L Normal 3.5 - 5.1 mmol/L AO ADM SS Protein [Mass/Vol] 7.3 G/dL Normal 6.4 - 8.2 G/dL AO ADM SS Sodium [Moles/Vol] 137 mmol/L Normal 136 - 145 mmol/L AO ADM SS TSH Qn 7.43 m[IU]/L High 0.36 - 3.74 mcIU/mL AO ADM SS Urea nitrogen [Mass/Vol] 28 mg/dL High 7 - 18 mg/dL AO ADM SS Urea nitrogen/Creatinine [Mass ratio] 29 ratio High 7 - 27 ratio AO ADM SS LABORATORYOrdered By: Jacqui Niño on 04-07-2024 Cholesterol [Mass/Vol] 175 mg/dL Normal 0 - 200 mg/dL AO ADM SS Comment on above: Interpretive Data: C holesterol Reference Interval: Less than 200 Desirable 200-239 Borderline high risk 240 and above High risk Cholesterol in HDL [Mass/Vol] 53 mg/dL Normal 40 - 60 mg/dL AO ADM SS Cholesterol in LDL [Mass/Vol] 88 mg/dL Normal 0 - 130 mg/dL AO ADM SS Triglyceride [Mass/Vol] 172 mg/dL High 0 - 150 mg/dL AO ADM SS Comment on above: Interpretive Data: T riglyceride Reference Interval: Less than 150 Normal 150-199 Borderline high risk 200-499 High risk 500 or higher Very high risk LIPIDon 04-07-2024 Cholesterol [Mass/Vol] 175 mg/dL Normal 0-200 [facility] Comment on above: Result Comment: Chol esterol Reference Interval: Less than 200 Desirable 200-239 Borderline high risk 240 and above High risk Performed By: #### G FR, CMP, TSHR, A1C, LIPID, FT4 #### [address] [address] Cholesterol in HDL [Mass/Vol] 53 mg/dL Normal 40-60 [facility] Comment on above: Performed By: #### G FR, CMP, TSHR, A1C, LIPID, FT4 #### [address] [address] Cholesterol in LDL [Mass/Vol] 88 mg/dL Normal 0-130 [facility] Comment on above: Performed By: #### G FR, CMP, TSHR, A1C, LIPID, FT4 #### [address] [address] Triglyceride [Mass/Vol] 172 mg/dL High 0-150 [facility] Comment on above: Result Comment: Trig lyceride Reference Interval: Less than 150 Normal 150-199 Borderline high risk 200-499 High risk 500 or higher Very high risk Performed By: #### G FR, CMP, TSHR, A1C, LIPID, FT4 #### [address] [address] TSHRon 04-07-2024 TSH Qn 7.43 m[IU]/L High 0.36-3.74 [facility] Comment on above: Performed By: #### G FR, CMP, TSHR, A1C, LIPID, FT4 #### [facility] [address] [place], [place] [address] HIV - WCHon 03-19-2024 HIV Non-Reactive Normal Nonreactive [facility] Comment on above: Performed By: #### L 3890.6100, L3890.6300, L3890.6200, L3890.6005 #### [facility] [address] [place], [place], [id number] Hepatitis B Surface Antibody on 03-19-2024 HEP B Surf Ab Non-Reactive Normal [facility] Comment on above: Result Comment: Non Reactive: Inconsistent with immunity less than <10 mIU/mL Reactive: Consistent with immunity greater than or equal to 10 mIU/mL Performed By: #### L 3890.6100, L3890.6300, L3890.6200, L3890.6005 #### [facility] [address] [place], [place], [id number] Hepatitis B Surface Antigeno n 03-19-2024 HEP B Surf Ag Non-Reactive Normal Nonreactive [facility] Comment on above: Performed By: #### L 3890.6100, L3890.6300, L3890.6200, L3890.6005 #### [facility] [address] [place], [place], [id number] Hepatitis C Antibodyon 03-19 Hepatitis C AB Non-Reactive Normal Nonreactive [facility] Comment on above: Result Comment: Non Reactive: < 0.8 Equivocal: >/= 0.8 to < 1.0 Reactive: >/= 1.0 The CDC requires that a reactive/equivocal HCV antibody result be sent out for confirmation. HCV Quant by PCR testing. Performed By: #### L 3890.6100, L3890.6300, L3890.6200, L3890.6005 #### [facility] [address] [place], [place], [id number] LABORATORYOrdered By: SYSTEM SYSTEM on 02-25-2024 Albumin BCP dye [Mass/Vol] 4.0 G/dL Normal 3.4 - 4.8 G/dL AO ADM SS Basophils (Bld) [#/Vol] 0.1 103/mcL Normal 0.0 - 0.2 10^3/mcL AO Workflow SS Basophils/100 WBC (Bld) 1.0 % Normal 0.0 - 2.5 % AO Workflow SS Calcium [Mass/Vol] 9.5 mg/dL Normal 8.4 - 10. 2 mg/dL AO ADM SS Chloride [Moles/Vol] 102 mmol/L Normal 98 - 10 7 mmol/L AO ADM SS CO2 [Moles/Vol] 30 mmol/L Normal 23 - 31 mmol/L AO AD M SS Creatinine [Mass/Vol] 0.86 mg/dL Normal 0.55 - 1.02 mg/dL AO ADM SS Comment on above: Interpretive Data: T esting performed on Siemens Dimension EXL analyzer using a modified kinetic Mak technique. Electrolyte Balance 4.0 mEq/L Normal 4.0 - 15 .0 mEq/L AO ADM SS Eosinophil, Absolute 0.2 103/mcL Normal 0.0 - 0 .7 10^3/mcL AO Workflow SS Eosinophils/100 WBC (Bld) 3.1 % Normal 0.0 - 7.0 % AO Workflow SS Erythrocyte distribution width (RBC) [Ratio] 14.8 % Normal 11.5 - 15.5 % AO Workflow SS GFR/1.73 sq M.predicted among blacks MDRD (S/P/Bld) [Vol rate/Area] 79 ml/min/1.73sqm Invalid Interpretation Code AO Chemistry S Comment on above: Interpretive Data: GFR Population mean for , Non- Americans Ages 20-29 = 116 mL/min/1.73 sq.m. Ages 30-39 = 107 mL/min/1.73 sq.m. Ages 40-49 = 99 mL/min/1.73 sq.m. Ages 50-59 = 93 mL/min/1.73 sq.m. Ages 60-69 = 85 mL/min/1.73 sq.m. Ages 70+ = 75 mL/min/1.73 sq.m. Chronic Kidney Disease: Less than 60 mL/min/1.73 square meters End Stage Renal Disease: Less than 15 mL/min/1.73 square meters GFR/1.73 sq M.predicted among non-blacks MDRD (S/P/Bld) [Vol rate/Area] 65 ml/min/1.73sqm Invalid Interpretation Code AO Chemistry S Comment on above: Interpretive Data: GFR Population mean for , Non- Americans Ages 20-29 = 116 mL/min/1.73 sq.m. Ages 30-39 = 107 mL/min/1.73 sq.m. Ages 40-49 = 99 mL/min/1.73 sq.m. Ages 50-59 = 93 mL/min/1.73 sq.m. Ages 60-69 = 85 mL/min/1.73 sq.m. Ages 70+ = 75 mL/min/1.73 sq.m. Chronic Kidney Disease: Less than 60 mL/min/1.73 square meters End Stage Renal Disease: Less than 15 mL/min/1.73 square meters Glucose [Mass/Vol] 117 mg/dL High 83 - 110 mg/dL AO ADM SS Hematocrit (Bld) [Volume fraction] 36.7 % Normal 34.0 - 46.0 % AO Workflow SS Hemoglobin (Bld) [Mass/Vol] 12.4 G/dL Normal 12.0 - 16.0 G/dL AO Workflow SS Lymphocytes (Bld) [#/Vol] 2.0 103/mcL Normal 0.9 - 4.3 10^3/mcL AO Workflow SS Lymphocytes/100 WBC (Bld) 32.8 % Normal 20.0 - 40.0 % AO Workflow SS MCH (RBC) [Entitic mass] 31.0 pg Normal 27.0 - 33.0 pg AO Workflow SS MCHC 33.8 G/dL Normal 32.0 - 36.0 G/dL AO Workflow SS MCV (RBC) [Entitic vol] 91.6 fL Normal 80.0 - 99.0 fL AO Workflow SS Monocytes (Bld) [#/Vol] 0.4 103/mcL Normal 0.1 - 1.4 10^3/mcL AO Workflow SS Monocytes/100 WBC (Bld) 6.6 % Normal 2.0 - 13.0 % AO Workflow SS Neutrophils (Bld) [#/Vol] 3.5 103/mcL Normal 2.3 - 8.1 10^3/mcL AO Workflow SS Neutrophils/100 WBC (Bld) 56.5 % Normal 50.0 - 75.0 % AO Workflow SS Platelet mean volume (Bld) [Entitic vol] 8.1 fL Normal 6.6 - 10.5 fL AO Workflow SS Platelets (Bld) [#/Vol] 243 103/mcL Normal 150 - 450 10^3/mcL AO Workflow SS Potassium [Moles/Vol] 4.9 mmol/L Normal 3.5 - 5.1 mmol/L AO ADM SS RBC (Bld) [#/Vol] 4.00 106/mcL Low 4.10 - 5.3 0 10^6/mcL AO Workflow SS Sodium [Moles/Vol] 136 mmol/L Normal 136 - 145 mmol/L AO ADM SS Urea nitrogen [Mass/Vol] 26 mg/dL High 7 - 18 mg/dL AO ADM SS Urea nitrogen/Creatinine [Mass ratio] 30 ratio High 7 - 27 ratio AO ADM SS WBC (Bld) [#/Vol] 6.2 103/mcL Normal 4.5 - 10.8 10^3/mcL AO Workflow SS .Auto Diffon 12-31-2023 Basophil, Absolute 0.1 10 3/mcL Normal 0.0-0.2 [facility] ([place]) Comment on above: Performed By: #### A 1C, CBC, ANEU, ALB, BMP, ADIFF, GFR #### [address] [address] Basophils/100 WBC (Bld) 0.9 % Normal 0.0-2.5 [facility] ([place]) Comment on above: Performed By: #### A 1C, CBC, ANEU, ALB, BMP, ADIFF, GFR #### [address] [address] Eosinophil, Absolute 0.2 10 3/mcL Normal 0.0-0.4 [facility] ([place]) Comment on above: Performed By: #### A 1C, CBC, ANEU, ALB, BMP, ADIFF, GFR #### [address] [address] Eosinophils/100 WBC (Bld) 3.5 % Normal 0.0-7.0 [facility] ([place]) Comment on above: Performed By: #### A 1C, CBC, ANEU, ALB, BMP, ADIFF, GFR #### [address] [address] Lymphocyte, Absolute 1.9 10 3/mcL Normal 0.8-3.9 [facility] ([place]) Comment on above: Performed By: #### A 1C, CBC, ANEU, ALB, BMP, ADIFF, GFR #### [address] [address] Lymphocytes/100 WBC (Bld) 33.2 % Normal 10.0-50.0 [facility] ([place]) Comment on above: Performed By: #### A 1C, CBC, ANEU, ALB, BMP, ADIFF, GFR #### [address] [address] Monocyte, Absolute 0.4 10 3/mcL Normal 0.2-1.0 [facility] ([place]) Comment on above: Performed By: #### A 1C, CBC, ANEU, ALB, BMP, ADIFF, GFR #### [address] [address] Monocytes/100 WBC (Bld) 7.3 % Normal 1.7-13.0 [facility] ([place]) Comment on above: Performed By: #### A 1C, CBC, ANEU, ALB, BMP, ADIFF, GFR #### [address] [address] Neutrophils/100 WBC (Bld) 55.1 % Normal 37.0-80.0 [facility] ([place]) Comment on above: Performed By: #### A 1C, CBC, ANEU, ALB, BMP, ADIFF, GFR #### [address] [address] .GFRon 12-31-2023 GFR 69 ml/min/1.73sqm Normal [facility] ([place]) Comment on above: Result Comment: GFR Population mean for , Non- Americans Ages 20-29 = 116 mL/min/1.73 sq.m. Ages 30-39 = 107 mL/min/1.73 sq.m. Ages 40-49 = 99 mL/min/1.73 sq.m. Ages 50-59 = 93 mL/min/1.73 sq.m. Ages 60-69 = 85 mL/min/1.73 sq.m. Ages 70+ = 75 mL/min/1.73 sq.m. Chronic Kidney Disease: Less than 60 mL/min/1.73 square meters End Stage Renal Disease: Less than 15 mL/min/1.73 square meters Performed By: #### A 1C, CBC, ANEU, ALB, BMP, ADIFF, GFR #### [address] [address] GFR Non- 57 ml/min/1.73sqm Normal [facility] ([place]) Comment on above: Result Comment: GFR Population mean for , Non- Americans Ages 20-29 = 116 mL/min/1.73 sq.m. Ages 30-39 = 107 mL/min/1.73 sq.m. Ages 40-49 = 99 mL/min/1.73 sq.m. Ages 50-59 = 93 mL/min/1.73 sq.m. Ages 60-69 = 85 mL/min/1.73 sq.m. Ages 70+ = 75 mL/min/1.73 sq.m. Chronic Kidney Disease: Less than 60 mL/min/1.73 square meters End Stage Renal Disease: Less than 15 mL/min/1.73 square meters Performed By: #### A 1C, CBC, ANEU, ALB, BMP, ADIFF, GFR #### [address] [address] .NEUABSon 12-31-2023 Neutrophil, Absolute 3.2 10 3/mcL Normal 2.9-6.2 [facility] ([place]) Comment on above: Performed By: #### A 1C, CBC, ANEU, ALB, BMP, ADIFF, GFR #### [address] [address] A1Con 12-31-2023 Glucose [Mass/Vol] 143 mg/dL Normal [facility] ([place]) Comment on above: Result Comment: Kailey mated Average Glucose calculated by equation ((28.7xA1C)-46.7) Estimated average glucose (eAG) is a calculated value from Hemoglobin A1C and is credit representative of the average blood glucose level in the last 2-3 month period. Normal range: less than 114 mg/dL Performed By: #### A 1C, CBC, ANEU, ALB, BMP, ADIFF, GFR #### [address] [address] HbA1c (Bld) [Mass fraction] 6.6 % High 4.3-6.4 [facility] ([place]) Comment on above: Performed By: #### A 1C, CBC, ANEU, ALB, BMP, ADIFF, GFR #### [address] [address] ALBon 12-31-2023 Albumin Level 3.5 G/dL Normal 3.4-4.8 [facility]) Comment on above: Performed By: #### A 1C, CBC, ANEU, ALB, BMP, ADIFF, GFR #### [address] [address] BMPon 12-31-2023 BUN/Creatinine Ratio 22 ratio Normal 7-27 [facility]) Comment on above: Performed By: #### A 1C, CBC, ANEU, ALB, BMP, ADIFF, GFR #### [address] [address] Calcium [Mass/Vol] 8.8 mg/dL Normal 8.4-10.2 [facility] ([place]) Comment on above: Performed By: #### A 1C, CBC, ANEU, ALB, BMP, ADIFF, GFR #### [address] [address] Chloride [Moles/Vol] 103 mmol/L Normal 98-107 [facility]) Comment on above: Performed By: #### A 1C, CBC, ANEU, ALB, BMP, ADIFF, GFR #### [address] [address] CO2 [Moles/Vol] 29 mmol/L Normal 23-31 [facility] ([place]) Comment on above: Performed By: #### A 1C, CBC, ANEU, ALB, BMP, ADIFF, GFR #### [address] [address] Creatinine [Mass/Vol] 0.96 mg/dL Normal 0.55-1.02 [facility] ([place]) Comment on above: Performed By: #### A 1C, CBC, ANEU, ALB, BMP, ADIFF, GFR #### [address] [address] Electrolyte Balance 7.0 mEq/L Normal 4.0-15.0 [facility] ([place]) Comment on above: Performed By: #### A 1C, CBC, ANEU, ALB, BMP, ADIFF, GFR #### [address] [address] Glucose [Mass/Vol] 128 mg/dL High 83-110 [facility] ([place]) Comment on above: Performed By: #### A 1C, CBC, ANEU, ALB, BMP, ADIFF, GFR #### [address] [address] Potassium [Moles/Vol] 4.7 mmol/L Normal 3.5-5.1 [facility] ([place]) Comment on above: Performed By: #### A 1C, CBC, ANEU, ALB, BMP, ADIFF, GFR #### [address] [address] Sodium [Moles/Vol] 139 mmol/L Normal 136-145 [facility] ([place]) Comment on above: Performed By: #### A 1C, CBC, ANEU, ALB, BMP, ADIFF, GFR #### [address] [address] Urea nitrogen [Mass/Vol] 21 mg/dL High 7-18 [facility] ([place]) Comment on above: Performed By: #### A 1C, CBC, ANEU, ALB, BMP, ADIFF, GFR #### [address] [address] CBCon 12-31-2023 Erythrocyte distribution width (RBC) [Ratio] 13.9 % Normal 11.5-14.5 [facility] ([place]) Comment on above: Performed By: #### A 1C, CBC, ANEU, ALB, BMP, ADIFF, GFR #### [address] [address] Hematocrit (Bld) [Volume fraction] 39.6 % Normal 37.0-47.0 [facility] ([place]) Comment on above: Performed By: #### A 1C, CBC, ANEU, ALB, BMP, ADIFF, GFR #### [address] [address] Hgb 13.2 G/dL Normal 12.0-16.0 [facility] ([place]) Comment on above: Performed By: #### A 1C, CBC, ANEU, ALB, BMP, ADIFF, GFR #### [address] [address] MCH (RBC) [Entitic mass] 30.4 pg Normal 27.0-31.2 [facility] ([place]) Comment on above: Performed By: #### A 1C, CBC, ANEU, ALB, BMP, ADIFF, GFR #### [place] [address] MCHC 33.4 G/dL Normal 33.0-37.0 [facility] ([place]) Comment on above: Performed By: #### A 1C, CBC, ANEU, ALB, BMP, ADIFF, GFR #### [address] [address] MCV (RBC) [Entitic vol] 91.0 fL Normal 80.0-94.0 [facility] ([place]) Comment on above: Performed By: #### A 1C, CBC, ANEU, ALB, BMP, ADIFF, GFR #### [address] [address] Platelet 242 10 3/mcL Normal 130-400 [facility] ([place]) Comment on above: Performed By: #### A 1C, CBC, ANEU, ALB, BMP, ADIFF, GFR #### [address] [address] Platelet mean volume (Bld) [Entitic vol] 9.0 fL Normal 7.4-10.4 [facility] ([place]) Comment on above: Performed By: #### A 1C, CBC, ANEU, ALB, BMP, ADIFF, GFR #### [address] [address] RBC 4.35 10 6/mcL Normal 4.20-5.40 [facility] ([place]) Comment on above: Performed By: #### A 1C, CBC, ANEU, ALB, BMP, ADIFF, GFR #### [address] [address] WBC 5.8 10 3/mcL Normal 4.6-10.8 [facility] ([place]) Comment on above: Performed By: #### A 1C, CBC, ANEU, ALB, BMP, ADIFF, GFR #### [address] [address] [address] KNEE W/O CONTRAST LEFTon 12-31-2023 CT KNEE W/O CONTRAST LEFT ORIGINAL EXAMINATION: CT OF THE LEFT KNEE WITHOUT CONTRAST12/31/2023 8:[address] of the left knee without contrast TECHNIQUE: Axial images of the knee are obtained with sagittal and coronal reconstructions. Limited axial imaging is also performed through the ipsilateral hip and ankle joints. This exam was performed according to our departmental dose-optimization program which includes automated exposure control, adjustment of the mA and/or kVp according to patient size and/or use of iterative reconstruction technique where applicable. COMPARISON: None HISTORY: ORDERING SYSTEM PROVIDED HISTORY: Reason for Exam: PRIMARY OSTEOARTHRITIS, , FINDINGS: Left knee: No acute or aggressive skeletal abnormality is seen in the knee. There is osteoarthritis in the knee with large marginal osteophytes. No significant narrowing of the medial and lateral femorotibial compartments. There is moderate superolateral subluxation of the patella in relation to the femoral trochlea on the axial images. There is lateral patellofemoral marginal spurring and subchondral cystic changes in the lateral patellar and trochlear facets. There is small knee joint effusion, no significant popliteal cyst. The musculature around the knee shows no atrophy or other significant contributory abnormality. Hip: Limited axial images through the hip joint. There is mild hip joint osteoarthritis. Ankle: Limited axial images of the ankle are also obtained. There is small subchondral cystic change in the anterolateral dome of the talus. A 4-5 mm calcific loose body is present at the level of the tibia-fibular syndesmosis. There is a small well corticated ossicle anterior distal to the lateral malleolus that may be remote nonunited avulsion fracture. IMPRESSION: Osteoarthritis of the left knee that is most prominent in the patellofemoral compartment. 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 Interpreted by: Marek Cruz MD Preliminary Report By: Marek Cruz MD Electronically signed By Marek Cruz MD Dictated Date: 12/31/2023 9:45:30 AM Prelim Date: 12/31/2023 9:51:59 AM Sign Date: 12/31/2023 9:51:59 AM Ordering Provider: SUSY Conte [facility] ([place]) LABORATORYOrdered By: SYSTEM SYSTEM on 12-31-2023 Albumin BCP dye [Mass/Vol] 3.5 G/dL Normal 3.4 - 4.8 G/dL AO ADM SS Basophil, Absolute 0.1 103/mcL Normal 0.0 - 0.2 10^3/mcL AO Workflow SS Basophils/100 WBC (Bld) 0.9 % Normal 0.0 - 2.5 % AO Workflow SS Calcium [Mass/Vol] 8.8 mg/dL Normal 8.4 - 10. 2 mg/dL AO ADM SS Chloride [Moles/Vol] 103 mmol/L Normal 98 - 10 7 mmol/L AO ADM SS CO2 [Moles/Vol] 29 mmol/L Normal 23 - 31 mmol/L AO AD M SS Creatinine [Mass/Vol] 0.96 mg/dL Normal 0.55 - 1.02 mg/dL AO ADM SS Electrolyte Balance 7.0 mEq/L Normal 4.0 - 15 .0 mEq/L AO ADM SS Eosinophil, Absolute 0.2 103/mcL Normal 0.0 - 0 .4 10^3/mcL AO Workflow SS Eosinophils/100 WBC (Bld) 3.5 % Normal 0.0 - 7.0 % AO Workflow SS Erythrocyte distribution width (RBC) [Ratio] 13.9 % Normal 11.5 - 14.5 % AO Workflow SS GFR/1.73 sq M.predicted among blacks MDRD (S/P/Bld) [Vol rate/Area] 69 ml/min/1.73sqm Invalid Interpretation Code AO Chemistry S Comment on above: Interpretive Data: GFR Population mean for , Non- Americans Ages 20-29 = 116 mL/min/1.73 sq.m. Ages 30-39 = 107 mL/min/1.73 sq.m. Ages 40-49 = 99 mL/min/1.73 sq.m. Ages 50-59 = 93 mL/min/1.73 sq.m. Ages 60-69 = 85 mL/min/1.73 sq.m. Ages 70+ = 75 mL/min/1.73 sq.m. Chronic Kidney Disease: Less than 60 mL/min/1.73 square meters End Stage Renal Disease: Less than 15 mL/min/1.73 square meters GFR/1.73 sq M.predicted among non-blacks MDRD (S/P/Bld) [Vol rate/Area] 57 ml/min/1.73sqm Invalid Interpretation Code AO Chemistry S Comment on above: Interpretive Data: GFR Population mean for , Non- Americans Ages 20-29 = 116 mL/min/1.73 sq.m. Ages 30-39 = 107 mL/min/1.73 sq.m. Ages 40-49 = 99 mL/min/1.73 sq.m. Ages 50-59 = 93 mL/min/1.73 sq.m. Ages 60-69 = 85 mL/min/1.73 sq.m. Ages 70+ = 75 mL/min/1.73 sq.m. Chronic Kidney Disease: Less than 60 mL/min/1.73 square meters End Stage Renal Disease: Less than 15 mL/min/1.73 square meters Glucose [Mass/Vol] 128 mg/dL High 83 - 110 mg/dL AO ADM SS Glucose [Mass/Vol] 143 mg/dL Invalid Interpretation Code AO Chemistry S Comment on above: Interpretive Data: E stimated average glucose (eAG) is a calculated value from Hemoglobin A1C and is credit representative of the average blood glucose level in the last 2-3 month period. Normal range: less than 114 mg/dL HbA1c (Bld) [Mass fraction] 6.6 % High 4.3 - 6.4 % AO ADM SS Hematocrit (Bld) [Volume fraction] 39.6 % Normal 37.0 - 47.0 % AO Workflow SS Hemoglobin (Bld) [Mass/Vol] 13.2 G/dL Normal 12.0 - 16.0 G/dL AO Workflow SS Lymphocyte, Absolute 1.9 103/mcL Normal 0.8 - 3 .9 10^3/mcL AO Workflow SS Lymphocytes/100 WBC (Bld) 33.2 % Normal 10.0 - 50.0 % AO Workflow SS MCH (RBC) [Entitic mass] 30.4 pg Normal 27.0 - 31.2 pg AO Workflow SS MCHC 33.4 G/dL Normal 33.0 - 37.0 G/dL AO Workflow SS MCV (RBC) [Entitic vol] 91.0 fL Normal 80.0 - 94.0 fL AO Workflow SS Monocyte, Absolute 0.4 103/mcL Normal 0.2 - 1.0 10^3/mcL AO Workflow SS Monocytes/100 WBC (Bld) 7.3 % Normal 1.7 - 13.0 % AO Workflow SS Neutrophil, Absolute 3.2 103/mcL Normal 2.9 - 6 .2 10^3/mcL AO Workflow SS Neutrophils/100 WBC (Bld) 55.1 % Normal 37.0 - 80.0 % AO Workflow SS Platelet mean volume (Bld) [Entitic vol] 9.0 fL Normal 7.4 - 10.4 fL AO Workflow SS Platelets (Bld) [#/Vol] 242 103/mcL Normal 130 - 400 10^3/mcL AO Workflow SS Potassium [Moles/Vol] 4.7 mmol/L Normal 3.5 - 5.1 mmol/L AO ADM SS RBC (Bld) [#/Vol] 4.35 106/mcL Normal 4.20 - 5.4 0 10^6/mcL AO Workflow SS Sodium [Moles/Vol] 139 mmol/L Normal 136 - 145 mmol/L AO ADM SS Urea nitrogen [Mass/Vol] 21 mg/dL High 7 - 18 mg/dL AO ADM SS Urea nitrogen/Creatinine [Mass ratio] 22 ratio Normal 7 - 27 ratio AO ADM SS WBC (Bld) [#/Vol] 5.8 103/mcL Normal 4.6 - 10.8 10^3/mcL AO Workflow SS MA MAMMOGRAM SCREENING BILAT ERAL W/TOMOon 09-05-2023 MA MAMMOGRAM SCREENING BILATERAL W/DEANNA ORIGINAL FROM: [facility] [address] [address] PROCEDURE FOR: KHOI CAPUTO [address] [place] [address] Home: PID#: [id number] Exam#: [id number] : 1950 Age: 72 TO: BEBE YAN [facility] [address] [place] [address] Fax: NO FAX EXAMINATION: SCREENING DIGITAL BILATERAL MAMMOGRAM WITH TOMOSYNTHESIS, 08/30/2023 2:07 pm TECHNIQUE: Screening mammography of the bilateral breasts was performed with tomosynthesis. 2D standard and 3D tomosynthesis combination imaging performed through both breasts in the MLO and CC projection. Computer aided detection was utilized in the interpretation of this exam. COMPARISON: July 11, 2022, July 10, 2021 HISTORY: Breast cancer screening FINDINGS: BREAST DENSITY: Heterogeneously dense There are no significant masses or calcifications. IMPRESSION: No mammographic evidence of malignancy. Continued screening with annual mammograms is recommended. Tyrer Cuzick risk calculations, generated with the history provided, report this patient's 10 year risk and lifetime risk for developing breast cancer at 8.7% and 13.5%, respectively. Based on this assessment tool, if the patient's calculated lifetime risk is below 20%, then the patient is considered at average risk for developing breast cancer. If the patient's calculated lifetime risk is at or above 20%, then the patient is considered high risk for developing breast cancer and may be a candidate for supplemental breast MRI screening in addition to annual mammographic screening per the [employer]. BIRADS: MAMMOGRAM BI-RADS: 1: Negative RECALL: 1 year screening RECALL TYPE: mammo LETTER SENT: Normal BI-RADS 1 and 2 Interpreted by: Angy Forbes Preliminary Report By: Angy Forbes Electronically signed By Angy Forbes Dictated Date: 09/05/2023 12:54:24 PM Prelim Date: 09/05/2023 1:03:45 PM Sign Date: 09/05/2023 1:03:45 PM Ordering Provider: BEBE YAN Insurance Appraiser: MEGHAN GUERRA RT(R)(M)(CT) [employer] letter sent: Normal BI-RADS 1 and 2 Mammogram BI-RADS: 1 Negative Normal [facility] ([place]) BD BONE DENSITY DEXA AXIAL S Emmie 08-30-2023 BD BONE DENSITY DEXA AXIAL SKELETON ORIGINAL EXAMINATION: BONE DENSITOMETRY 08/30/2023 2:22 pm TECHNIQUE: A bone density dual x-ray absorptiometry (DEXA) scan was performed of the lumbar spine and left hip on a Hologic system. COMPARISON: None. HISTORY: ORDERING SYSTEM PROVIDED HISTORY: Reason for Exam: Osteoporosis Screening screening Postmenopausal FINDINGS: LEFT HIP: The bone mineral density in the total hip is measured at 0.999 g/cm2 corresponding to a T-score of 0.5. This is within the normal range by WHO criteria. The bone mineral density of the femoral neck is measured at 0.788 g/cm2 corresponding to a T-score of -0.5. This is within the normal range by WHO criteria. Lumbar spine: The bone mineral density of the lumbar spine, L1 through L4 is measured at 0.934 g/cm2 corresponding to a T-score of -1.0. This is within the normal range by WHO criteria. 10 year probability of fracture: FRAX not reported as all T-scores for the total hip, spine or femoral neck are at or above -1.0. IMPRESSION: Normal DEXA study by WHO criteria. Interpreted by: Laina Davalos Preliminary Report By: Laina Davalos Electronically signed By Laina Davalos Dictated Date: 08/30/2023 2:58:01 PM Prelim Date: 08/30/2023 2:59:34 PM Sign Date: 08/30/2023 2:59:34 PM Ordering Provider: BEBE Conte [facility] ([place]) BASIC METABOLIC PANELon BUN/CREATININE RATIO NOT APPLICABLE Normal 10-25 [facility] Comment on above: Performed By: #### 6 09, [id number] #### [facility] [address], [address] [place] [id number] Promotion Writer: Chemo Cody MD Calcium [Mass/Vol] 9.2 mg/dL Normal 8.6-10.4 [facility] Comment on above: Performed By: #### 6 69, [id number] #### [facility] [address], [address] [place] [address] Promotion Writer: Chemo Cody MD Chloride [Moles/Vol] 102 mmol/L Normal 98-110 [facility] Comment on above: Performed By: #### 6 22, [id number] #### [facility] [address], [address] [place] [address] Promotion Writer: Chemo Cody MD CO2 [Moles/Vol] 29 mmol/L Normal 20-32 [facility] Comment on above: Performed By: #### 6 22, [id number] #### [facility] [address], [address] [place] [address] Promotion Writer: Chemo Cody MD Creatinine [Mass/Vol] 0.85 mg/dL Normal 0.50-1.[address] [facility] [address] [facility] Comment on above: Performed By: #### 6 22, [id number] #### [facility] [address], [address] [place] [address] Promotion Writer: Chemo Cody MD GFR/1.73 sq M.predicted among non-blacks MDRD (S/P/Bld) [Vol rate/Area] 74 mL/min/{1.73_m2} Normal > OR = 60 [facility] Comment on above: Result Comment: The eGFR is based on the CKD-EPI 202 equation. To calculate the new eGFR from a previous Creatinine or Cystatin C result, go to https://www.kidney.org/professionals/ kdoqi/gfr%5Fcalculator Performed By: #### 6 22, [id number] #### [facility] [address], [address] [place] [address] Promotion Writer: Chemo Cody MD Glucose [Mass/Vol] 129 mg/dL High 65-99 [facility] Comment on above: Result Comment: Fasting reference interval For someone without known diabetes, a glucose value >125 mg/dL indicates that they may have diabetes and this should be confirmed with a follow-up test. Performed By: #### 6 22, [id number] #### [facility] [address], [address] [place] [address] Promotion Writer: Chemo Cody MD Potassium [Moles/Vol] 4.9 mmol/L Normal 3.5-5.[address] [facility] Comment on above: Performed By: #### 6 22, [id number] #### [facility] [address], [address] [place] [address] Promotion Writer: Chemo Cody MD Sodium [Moles/Vol] 138 mmol/L Normal 135-146 [facility] Comment on above: Performed By: #### 6 22, [id number] #### [facility] [address], [address] [place] [address] Promotion Writer: Chemo Cody MD Urea nitrogen [Mass/Vol] 25 mg/dL Normal 7-25 [facility] Comment on above: Performed By: #### 6 , 114[address] #### [facility] [place] [address] Promotion Writer: Chemo Cody MD MAGNESIUMon 06-08-2022 Magnesium [Mass/Vol] 2.2 mg/dL Normal 1.5-2.5 [facility] Comment on above: Order Comment: FASTI NG:YES AN UPDATE OR CORRECTION HAS BEEN MADE TO NAME FASTING: YES Performed By: #### 6 22, [id number] #### [facility] [place] [address] Promotion Writer: Chemo Cody MD LABORATORYOrdered By: Ciro Bradford on 04-15-2021 Basophil, Absolute 0.10 103/mcL Invalid Interpretation Code 0.00 - 0.19 10^3/mcL AO Auto Heme SS Basophils/100 WBC (Bld) 0.7 % Invalid Interpretation Code 0.0 - 2.5 % AO Auto Heme SS Eosinophil, Absolute 0.20 103/mcL Invalid Interpretation Code 0.00 - 0.40 10^3/mcL AO Auto Heme SS Eosinophils/100 WBC (Bld) 1.7 % Invalid Interpretation Code 0.0 - 7.0 % AO Auto Heme SS Erythrocyte distribution width (RBC) [Ratio] 13.6 % Invalid Interpretation Code 11.5 - 14.5 % AO Auto Heme SS Hematocrit (Bld) [Volume fraction] 44.6 % Invalid Interpretation Code 37.0 - 47.0 % AO Auto Heme SS Hemoglobin (Bld) [Mass/Vol] 15.0 G/dL Invalid Interpretation Code 12.0 - 16.0 G/dL AO Auto Heme SS Lymphocyte, Absolute 3.70 103/mcL Invalid Interpretation Code 0.77 - 3.85 10^3/mcL AO Auto Heme SS Lymphocytes/100 WBC (Bld) 39.8 % Invalid Interpretation Code 10.0 - 50.0 % AO Auto Heme SS MCH (RBC) [Entitic mass] 29.8 pg Invalid Interpretation Code 27.0 - 31.2 pg AO Auto Heme SS MCHC (RBC) [Mass/Vol] 33.7 G/dL Invalid Interpretation Code 33.0 - 37.0 G/dL AO Auto Heme SS MCV (RBC) [Entitic vol] 88.6 fL Invalid Interpretation Code 80.0 - 94.0 fL AO Auto Heme SS Monocyte, Absolute 0.30 103/mcL Invalid Interpretation Code 0.15 - 1.00 10^3/mcL AO Auto Heme SS Monocytes/100 WBC (Bld) 3.3 % Invalid Interpretation Code 1.7 - 13.0 % AO Auto Heme SS Neutrophil, Absolute 5.00 103/mcL Invalid Interpretation Code 2.85 - 6.16 10^3/mcL AO Auto Heme SS Neutrophils/100 WBC (Bld) 54.5 % Invalid Interpretation Code 37.0 - 80.0 % AO Auto Heme SS Platelet mean volume (Bld) [Entitic vol] 8.9 fL Invalid Interpretation Code 7.4 - 10.4 fL AO Auto Heme SS Platelets (Bld) [#/Vol] 314 103/mcL Invalid Interpretation Code 130 - 400 10^3/mcL AO Auto Heme SS RBC (Bld) [#/Vol] 5.04 106/mcL Invalid Interpretation Code 4.20 - 5.40 10^6/mcL AO Auto Heme SS WBC (Bld) [#/Vol] 9.20 103/mcL Invalid Interpretation Code 4.60 - 10.80 10^3/mcL AO Auto Heme SS LABORATORYOrdered By: Jacqui Niño on 04-15-2021 Calcium [Mass/Vol] 9.6 mg/dL Invalid Interpretation Code 8.4 - 10.2 mg/dL AO ADM SS Chloride [Moles/Vol] 98 mmol/L Invalid Interpretation Code 98 - 107 mmol/L AO ADM SS CO2 [Moles/Vol] 24 mmol/L Invalid Interpretation Code 23 - 31 mmol/L AO ADM SS Creatinine [Mass/Vol] 1.21 mg/dL Invalid Interpretation Code 0.55 - 1.02 mg/dL AO ADM SS Electrolyte Balance 15.0 mEq/L Invalid Interpretation Code AO ADM SS Glucose [Mass/Vol] 216 mg/dL Invalid Interpretation Code 80 - 115 mg/dL AO ADM SS Potassium [Moles/Vol] 3.8 mmol/L Invalid Interpretation Code 3.5 - 5.1 mmol/L AO ADM SS Sodium [Moles/Vol] 137 mmol/L Invalid Interpretation Code 136 - 145 mmol/L AO ADM SS Troponin I.cardiac DL <= 0.01 ng/mL [Mass/Vol] 7.3 ng/L Invalid Interpretation Code 0.0 - 51.4 ng/L AO ADM SS Urea nitrogen [Mass/Vol] 26 mg/dL Invalid Interpretation Code 7 - 18 mg/dL AO ADM SS Urea nitrogen/Creatinine [Mass ratio] 21 ratio Invalid Interpretation Code 7 - 27 ratio AO ADM SS LABORATORYOrdered By: SYSTEM SYSTEM on 04-15-2021 GFR 54 ml/min/1.73sqm Invalid Interpretation Code AO Chemistry S GFR Non- 44 ml/min/1.73sqm Invalid Interpretation Code AO Chemistry S CORONAVIRUS 2019, SCREEN ASY MPTOMATICon 07-22-2020 CORONAVIRUS 2019,PCR NOT DETECTED Normal Not Detected [facility] Comment on above: Result Comment: . This assay is designed to detect SARS-CoV-2 based on replication of specific regions of the RNA from the SARS-CoV-2 virus. A Not Detected result does not preclude 2019-nCoV infection since the adequacy of sample collection and/or low viral burden may result in presence of viral nucleic acids below the clinical sensitivity of this test method. Fact sheet for providers: https://www.fda.gov/media/506801/download Fact sheet for patients: https://www.fda.gov/media/800663/download This test has received FDA Emergency Use Authorization [EUA] and has been verified by [facility] ([facility]). This test is only authorized for the duration of time that circumstances exist to justify the authorization of the emergency use of in vitro diagnostic tests for the detection of SARS-CoV-2 virus and/or diagnosis of COVID-19 infection under section 564(b)(1) of the Act, 21 U.S.C. 360bbb-3(b)(1), unless the authorization is terminated or revoked sooner. [facility] is certified under CLIA-88 as qualified to perform high complexity testing. Testing is performed in the [facility] laboratories [place] [address] [place] [address]. Performed By: #### C OVSC #### [facility] [address] [facility] [place] [place] [address] Covid 19 Resultson 1 Covid 19 Results NEGATIVE COVID-19 Test Coronaviruses are common world-wide and are the cause of many common colds. SARS-COV2 is a new coronavirus that began circulating worldwide in 2019 so we are calling it COVID-19. It has been estimated that four out of five patients with COVID-19 will recover at home without the need for medical attention. Symptoms of COVID-19 include cough, fever, shortness of breath, loss of taste or smell and other flu-like symptoms including chills, sore muscles, sore throat, and headache. Severe illness is more common in older people and people with other health problems such as high blood pressure, obesity, and immune system problems. If the test is positive, you have COVID-19. You will be contacted by the ordering physicians office and instructed to remain on home isolation, in accordance with CDC guidelines. You may also be contacted by the [facility] to see if any of your close contacts may have been exposed to the virus and need to quarantine. If the test is negative, you likely do not have COVID-19 at this time, but you still may have a different illness that can spread to other people (like Influenza, or the Flu) and could still be at risk for getting COVID-19. We recommend that you stay away from other people to limit the spread of illness until your symptoms are improving and you are fever-free for 24 hours without the use of fever lowering medications such as acetaminophen or ibuprofen. No test is 100% accurate so if you are still concerned you may have COVID-19, talk to your doctor about the need to continue to stay away from others. Medicines Acetaminophen (Tylenol and others) is generally safe. Anti-inflammatory medications, such as Ibuprofen (Advil or Motrin) or Naproxen (Aleve) can also be used. Ublc-zaf-lyjhsoz cough and cold medicines can be used according to the instructions on the package. Some bzby-gqm-hvdcklt medicines also contain acetaminophen. Make sure you are not taking more than your recommended dose For those not hospitalized, there is no specific treatment available for this illness. Antibiotics do not treat Coronaviruses. Follow-Up Follow up with your doctor by scheduling a virtual visit or consider follow-up at one of our urgent care fever clinics. If you are having difficulty breathing, or are very weak and having difficulty standing, this is a medical emergency. Call 911 or have someone take you to the nearest emergency room immediately. If possible, wear a facemask. Additional guidance from the CDC for patients who tested POSITIVE for COVID-19 How to isolate: Isolate yourself in a specific room at home and limit your contact with others. Use a separate bathroom from other members of the household, when possible. Leave home only to get essential medical care. Do not go to work, school or public areas. Avoid using public transportation, ride-sharing, or taxis. Restrict contact with pets and other animals. If you must care for your pet or be around animals while you are sick, wash your hands before and after your interaction and wear a facemask. Make sure that shared spaces in the home have good airflow, such as by an air conditioner or an opened window, weather permitting. Personal Hygiene Procedures: Wear a face mask when in the same room as other people or pets. If a face mask interferes with your breathing, others should wear a mask when sharing space with you. Frequent hand-washing: wash your hands with soap and water for at least 20 seconds. If soap and water are not available, use alcohol-based hand waxer operator. Avoid touching your eyes, nose, and mouth with unwashed hands. Household Hygiene Procedures: Avoid sharing personal household items such as dishes, glassware, cups, eating utensils, towels or bedding with other people or pets in your home. After use, these items should be washed with soap and hot water. Disinfect all high-touch surfaces every day with antibacterial cleaning solutions such as Lysol wipes, bleach, cleansers, etc. High-touch surfaces include tabletops, doorknobs, bathroom fixtures, toilets, phones, keyboards, tablets and bedside tables. Immediately clean any surfaces that may have blood, poop or body fluids on them, using antibacterial cleaning solutions such as Lysol wipes, bleach, cleansers, etc. If clothing or bedding come into contact with blood, poop or body fluids, they should be washed immediately. Follow the directions on the laundry detergent and clothing labels but hot water is recommended when possible. Stopping home isolation precautions: If possible, consult your doctor before stopping home isolation precautions. According to the CDC, you can discontinue home isolation precautions when you have met both of these criteria: Your fever and respiratory symptoms have been gone for 24 hours without the use of any medicines like ibuprofen (Motrin) and acetaminophen (Tylenol). It has been at least 10 days since your symptoms first appeared. If you are immunosuppressed OR you were admitted to the hospital for this, you should wait until it has been 14 days since your symptoms first appeared. Guidelines for Those Living With and/or Caring For Persons with COVID-19: Read and follow all the recommendations outlined in this handout. Do not permit visitors in the home unless there is an essential need. Wear a facemask when in the same room as the patient. Wear a facemask and gloves (disposable if available) when you touch or have contact with the patient's blood, poop, or body fluids including saliva, phlegm, nasal mucus, vomit or urine. Clean or throw away facemasks and gloves after use and wash your hands with soap and water. You will need to quarantine (stay away from others) for 14 days after your last contact with your family member with COVID-19. The person with COVID-19 is considered contagious 48 hours prior to symptoms beginning (or starting with the day of the positive test if they have no symptoms) for a total of 10 days. Additional resources: [facility] COVID Hotline at 4-790-2YJFWVM ( ). COVID-19 Careline at (avai lable 24 hours per day, seven days a week if you or a loved one is experiencing anxiety related to the coronavirus pandemic). Clinical research opportunities: is conducting research studies to develop better testing and treatments for COVID. Do you want any information on how to participate Call [phone]. Websites: hospitals.org or www.CDC.gov Follow My Health / My [facility] (for other test results): Revised 03/22/2020 Electronic Signatures: Jose Cruz Billingsley (ADMIN) (Signature pending) Authored Last Updated: 22-Jul-2020 05:00 by Jose Cruz Billingsley (ADMIN) Normal [facility] CORONAVIRUS 2019, SCREEN ASY MPTOMATICon 07-21-2020 Lab Specimen Source Nasal, Nasopharyngeal Normal [facility] Comment on above: Performed By: #### C OVSC #### [facility] [address] [place] [address] Vital Signs Date Time Vital Sign Value Performing Clinician Facility 02-15-2025 08:09-0400 Body height 167.64 cm Bebe Yan PERSONNEL RECORDS CLERK-C Work Phone: [facility] 02-15-2025 08:09-0400 Body mass index (BMI) [Ratio] 27.8 kg/m2 Bebe Yan PERSONNEL RECORDS CLERK-C Work Phone: [facility] 02-15-2025 08:09-0400 Body temperature 97.7 [degF] Bebe Yan PERSONNEL RECORDS CLERK-C Work Phone: [facility] 02-15-2025 08:09-0400 Body weight 78.24 kg Bebe Yan PERSONNEL RECORDS CLERK-C Work Phone: [facility] 02-15-2025 08:09-0400 Diastolic blood pressure 106 mm[Hg] Bebe Yan PERSONNEL RECORDS CLERK-C Work Phone: [facility] 02-15-2025 08:09-0400 Heart rate 81 /min Bebe Yan PERSONNEL RECORDS CLERK-C Work Phone: [facility] 02-15-2025 08:09-0400 Respiratory rate 18 /min Bebe Yan PERSONNEL RECORDS CLERK-C Work Phone: [facility] 02-15-2025 08:09-0400 SaO2% (BldA) [Mass fraction] 96 % Bebe Yan PERSONNEL RECORDS CLERK-C Work Phone: [facility] 02-15-2025 08:09-0400 Systolic blood pressure 151 mm[Hg] Bebe Yan PERSONNEL RECORDS CLERK-C Work Phone: [facility] 06-14-2023 11:35-0500 Diastolic Blood Pressure Non-Invasive 61 mm[Hg] JAYLEN SUPPAN DPM [facility] 06-14-2023 11:35-0500 Heart rate 81 /min JAYLEN SUPPAN DPM [facility] 06-14-2023 11:35-0500 Respiratory rate 14 /min JAYLEN SUPPAN DPM [facility] 06-14-2023 11:35-0500 Systolic Blood Pressure Non-Invasive 112 mm[Hg] JAYLEN SUPPAN DPM [facility] 06-14-2023 11:23-0500 Diastolic Blood Pressure Non-Invasive 63 mm[Hg] JAYLEN SUPPAN DPM [facility] 06-14-2023 11:23-0500 Heart rate 81 /min JAYLEN SUPPAN DPM [facility] 06-14-2023 11:23-0500 Respiratory rate 14 /min JAYLEN SUPPAN DPM [facility] 06-14-2023 11:23-0500 Systolic Blood Pressure Non-Invasive 109 mm[Hg] JAYLEN SUPPAN DPM [facility] 06-14-2023 11:18-0500 Diastolic Blood Pressure Non-Invasive 58 mm[Hg] JAYLEN SUPPAN DPM [facility] 06-14-2023 11:18-0500 Heart rate 84 /min JAYLEN SUPPAN DPM [facility] 06-14-2023 11:18-0500 Respiratory rate 14 /min JAYLEN SUPPAN DPM [facility] 06-14-2023 11:18-0500 Systolic Blood Pressure Non-Invasive 110 mm[Hg] JAYLEN SUPPAN DPM [facility] 06-14-2023 11:10-0500 Heart rate 80 /min JAYLEN SUPPAN DPM [facility] 06-14-2023 11:10-0500 Respiratory Rate - Anes 15 br/min JAYLEN SUPPAN DPM [facility] 06-14-2023 11:05-0500 Heart rate 86 /min JAYLEN SUPPAN DPM [facility] 06-14-2023 11:05-0500 Respiratory Rate - Anes 13 br/min JAYLEN SUPPAN DPM [facility] 06-14-2023 11:00-0500 Heart rate 92 /min JAYLEN SUPPAN DPM [facility] 06-14-2023 11:00-0500 Respiratory Rate - Anes 18 br/min JAYLEN SUPPAN DPM [facility] 06-14-2023 10:13-0500 Body temperature 97.88 [degF] JAYLEN SUPPAN DPM [facility] 06-14-2023 10:03-0500 Body height 167 cm JAYLEN SUPPAN DPM [facility] 06-14-2023 10:03-0500 Body weight 83 kg JAYLEN SUPPAN DPM [facility] 06-14-2023 10:03-0500 Body weight 29.76 kg/m2 JAYLEN SUPPAN DPM [facility] 06-04-2023 08:05-0500 Body height 167.6 cm JAYLEN SUPPAN DPM [facility] 06-04-2023 08:05-0500 Body weight 82.4 kg JAYLEN SUPPAN DPM [facility] 06-04-2023 08:05-0500 Body weight 29.33 kg/m2 JAYLEN SUPPAN DPM [facility] 06-04-2023 08:05-0500 Diastolic Blood Pressure Non-Invasive 83 mm[Hg] JAYLEN SUPPAN DPM [facility] 06-04-2023 08:05-0500 Heart rate 90 /min JAYLEN SUPPAN DPM [facility] 06-04-2023 08:05-0500 Respiratory rate 20 /min JAYLEN SUPPAN DPM [facility] 06-04-2023 08:05-0500 Systolic Blood Pressure Non-Invasive 153 mm[Hg] JAYLEN SUPPAN DPM [facility] 04-15-2021 12:41-0500 Diastolic blood pressure 63 mm[Hg] JANICE BAUTISTA MD [facility] 04-15-2021 12:41-0500 Heart rate 87 /min JANICE BAUTISTA MD [facility] 04-15-2021 12:41-0500 Respiratory rate 14 /min JANICE BAUTISTA MD [facility] 04-15-2021 12:41-0500 Systolic blood pressure 112 mm[Hg] JANICE BAUTISTA MD [facility] 04-15-2021 10:41-0500 Body temperature 96.8 [degF] JANICE BAUTISTA MD [facility] 04-15-2021 10:41-0500 Diastolic blood pressure 83 mm[Hg] JANICE BAUTISTA MD [facility] 04-15-2021 10:41-0500 Heart rate 70 /min JANICE BAUTISTA MD [facility] 04-15-2021 10:41-0500 Respiratory rate 16 /min JANICE BAUTISTA MD [facility] 04-15-2021 10:41-0500 Systolic blood pressure 113 mm[Hg] JANICE BAUTISTA MD [facility] Encounters Encounter Date Encounter Type Care Provider Facility Start: 03-23-2025 ambulatory Jazmine Weiss ty:[facility] Start: 03-01-2025 End: 03-02-2025 ambulatory BEBE YAN APRN-RUG REPAIRER Facility:[facility] Start: 03-01-2025 End: 03-01-2025 Patient encounter procedure JAZMINE CULVER APRN-RUG REPAIRER [facility] Start: 02-24-2025 End: 02-24-2025 ambulatory BEBE YAN COMMUNITY AFFAIRS MANAGER-RUG REPAIRER Facility:[facility] Start: 02-24-2025 End: 02-24-2025 Patient encounter procedure JAZMINE CULVER COMMUNITY AFFAIRS MANAGER-RUG REPAIRER [facility] Start: 02-15-2025 End: 02-15-2025 Patient encounter procedure Jazmine Culver PERSONNEL RECORDS CLERK-C -Laboratory Work Phone: Start: 02-15-2025 End: 02-15-2025 ambulatory Bebe Yan PERSONNEL RECORDS CLERK-C Work Phone: [facility] Start: 02-15-2025 End: 02-15-2025 ambulatory Jazmine Culver Facility:[facility] Start: 01-08-2025 End: 01-08-2025 ambulatory BEBE YAN COMMUNITY AFFAIRS MANAGER-RUG REPAIRER Facility:[facility] Start: 01-08-2025 End: 01-08-2025 Patient encounter procedure BEBE YAN COMMUNITY AFFAIRS MANAGER-RUG REPAIRER [facility] Start: 01-05-2025 End: 01-05-2025 ambulatory BEBE YAN COMMUNITY AFFAIRS MANAGER-RUG REPAIRER Facility:[facility] Start: 01-05-2025 End: 01-05-2025 Patient encounter procedure BEBE YAN COMMUNITY AFFAIRS MANAGER-RUG REPAIRER [facility] Start: 11-18-2024 End: 11-18-2024 ambulatory RAMIRO SHAVER PA-C Facility:[facility] Start: 11-18-2024 End: 11-18-2024 Patient encounter procedure RAMIRO SHAVER PA-C [facility] Start: 11-16-2024 End: 11-16-2024 ambulatory BEBE YAN COMMUNITY AFFAIRS MANAGER-RUG REPAIRER Facility:[facility] Start: 11-16-2024 End: 11-16-2024 Patient encounter procedure BEBE YAN COMMUNITY AFFAIRS MANAGER-RUG REPAIRER [facility] Start: 09-30-2024 End: 09-30-2024 ambulatory BEBE YAN COMMUNITY AFFAIRS MANAGER-RUG REPAIRER Facility:[facility] Start: 09-30-2024 End: 09-30-2024 Patient encounter procedure BEBE YAN COMMUNITY AFFAIRS MANAGER-RUG REPAIRER [facility] Start: 05-11-2024 End: 05-15-2024 ambulatory BEBE YAN COMMUNITY AFFAIRS MANAGER-RUG REPAIRER Facility:[facility] Start: 05-11-2024 End: 05-15-2024 Outreach Lab BEBE YAN COMMUNITY AFFAIRS MANAGER-RUG REPAIRER [facility] Start: 04-07-2024 End: 04-07-2024 ambulatory BEBE YAN COMMUNITY AFFAIRS MANAGER-RUG REPAIRER Facility:[facility] Start: 04-07-2024 End: 04-07-2024 Patient encounter procedure BEBE YAN COMMUNITY AFFAIRS MANAGER-RUG REPAIRER [facility] Start: 03-23-2024 End: 05-14-2024 Admission to same day surgery center ECHO DRUMMOND PA-C [facility] Start: 03-23-2024 End: 05-14-2024 ambulatory ECHO DRUMMOND PA-C Facility:[facility] Start: 03-19-2024 ambulatory Susy Longoria Facility: [facility] Start: 02-25-2024 End: 02-25-[address] SUSY LONGORIA MD [facility] Start: 02-24-2024 End: 02-24-[address] SUSY LONGORIA MD [facility] Start: 01-27-2024 End: 03-06-2024 Admission to same day surgery center JENN DE LA PAZ PA-C [facility] Start: 12-31-2023 End: 12-31-[address] SUSY LONGORIA MD Facility:[facility] Start: 12-31-2023 End: 12-31-[address] SUSY LONGORIA MD [facility] Start: 08-30-2023 End: 08-30-2023 ambulatory BEBE YAN COMMUNITY AFFAIRS MANAGER-RUG REPAIRER Facility:[facility] Start: 08-30-2023 End: 08-30-2023 Patient encounter procedure BEBE YAN COMMUNITY AFFAIRS MANAGER-RUG REPAIRER [facility] Start: 06-14-2023 End: 06-14-2023 ambulatory JAYLEN OAKES DPM Facility:[facility] Start: 06-14-2023 End: 06-14-2023 SAME DAY STAY JAYLEN JACKSONAN DPM [facility] Start: 06-04-2023 End: 06-04-2023 Admission to establishment JAYLEN JACKSONAN DPM [facility] Start: 06-04-2023 End: 06-04-2023 ambulatory JAYLEN JACKSONAN DPM Facility:[facility] Start: 08-17-2022 End: 08-17-2022 Minor Procedure BEBE YAN COMMUNITY AFFAIRS MANAGER-RUG REPAIRER [facility] Start: 04-15-2021 End: 04-15-2021 Emergency department patient visit JANICE BAUTISTA MD [facility] Procedures Date Procedure Procedure Detail Performing Clinician Start: 02-15-2025 Hepatitis A virus an tibody, total measurement Bebe Yan PERSONNEL RECORDS CLERK-C Work Phone: Comment on above: Comment: The HAV tot al antibody assay detects both IgG andIgM but does not differentiate between them. A negativeresult suggests susceptibility to infection. A positiveresult could be due to vaccination, previously resolvedinfection or active infection. Testing for HAV IgM shouldbe performed if active HAV infection is suspected. [facility] profiles that will automatically reflex positive HAVtotal antibody results to IgM (e.g., panel #[id number] HAVAntibody w/ Rfx).Performed at: [facility] [id number] Director: Vik Yousif PhD, Phone: [phone] Start: 02-15-2025 Immunoglobulin G sub class, G4 measurement Bebe Yan PERSONNEL RECORDS CLERK-C Work Phone: Start: 03-20-2024 Arthroplasty of knee JE ERIS ALEX COMMUNITY AFFAIRS MANAGER-RUG REPAIRER Comment on above: Right Start: 06-14-2023 Structure of tarsal canal (body structure) BEBE YAN COMMUNITY AFFAIRS MANAGER-RUG REPAIRER Comment on above: left Start: 05-24-2023 Arthroplasty of knee JE JENNIFERKOFI ALEX COMMUNITY AFFAIRS MANAGER-RUG REPAIRER Start: 03-16-2015 Carpal tunnel syndro me (disorder) JANICE BAUTISTA MD Comment on above: left Start: 04-06-2005 Structure of anterio r portion of neck (body structure) JANICE BAUTISTA MD Start: 09-15-1980 Cholecystectomy JANICE BAUTISTA MD Start: 10-05-1979 Dilation and curettage JANICE BAUTISTA MD Colonoscopy JAYLEN OAKES DP M Extraction of cataract JAYLEN BAUERM Comment on above: right Ligation and strippi ng of varicose vein of lower limb JAYLEN BAUERM Comment on above: left Tonsillectomy and adenoidectomy JAYLEN BAUERM Plan of Treatment Date Care Activity Detail Author MR Biliary ducts and Pancreatic duct WO contrast [facility] Immunizations Immunization Date Immunization Notes Care Provider Fa [facility] 02-22-2025 hepatitis A vaccine, adult dosage; Translations: [Havrix] JAZMINE CULVER COMMUNITY AFFAIRS MANAGER-RUG REPAIRER [facility] 02-22-2025 hepatitis B vaccine, adult dosage; Translations: [Engerix-B] JAZMINE CULVER COMMUNITY AFFAIRS MANAGER-RUG REPAIRER [facility] 02-10-2025 influenza, high dose seasonal, preservative-free; Translations: [Fluzone High-Dose PF Prefilled Syringe ] JAZMINE CULVER COMMUNITY AFFAIRS MANAGER-RUG REPAIRER [facility] 08-05-2023 Pneumococcal conjuga te PCV20, polysaccharide [id number] conjugate, adjuvant, PF; Translations: [Prevnar 20] BEBE YAN COMMUNITY AFFAIRS MANAGER-RUG REPAIRER [facility] 03-22-2021 COVID-19, mRNA, LNP- S, PF, 100 mcg/ 0.5 mL dose; Translations: [Moderna COVID-19 Vaccine] JANICE BAUTISTA MD [facility] 01-13-2021 zoster vaccine recombinant BEBE YAN COMMUNITY AFFAIRS MANAGER-RUG REPAIRER [facility] 10-18-2020 zoster vaccine recombinant BEBE YAN COMMUNITY AFFAIRS MANAGER-RUG REPAIRER [facility] 07-15-2020 COVID-19, mRNA, LNP- S, PF, 100 mcg/ 0.5 mL dose; Translations: [Moderna COVID-19 Vaccine] JANICE BAUTISTA MD [facility] 06-17-2020 COVID-19, mRNA, LNP- S, PF, 100 mcg/ 0.5 mL dose; Translations: [Moderna COVID-19 Vaccine] JANICE BAUTISTA MD [facility] 02-09-2020 influenza, injectabl e, quadrivalent, preservative free; Translations: [Fluarix PF Quadrivalent ] JANICE BAUTISTA MD [facility] 01-27-2019 influenza, injectabl e, quadrivalent, preservative free; Translations: [Fluarix PF Quadrivalent ] JANICE BAUTISTA MD [facility] 04-24-2018 pneumococcal conjuga te vaccine, 13 valent JANICE BAUTISTA MD [facility] 02-07-2018 influenza virus vacc ine, unspecified formulation JANICE BAUTISTA MD [facility] 01-31-2017 influenza virus vacc ine, unspecified formulation JANICE BAUTISTA MD [facility] 08-14-2016 tetanus toxoid, redu mike diphtheria toxoid, and acellular pertussis vaccine, adsorbed JANICE BAUTISTA MD [facility] 02-03-2016 influenza virus vacc ine, unspecified formulation JANICE BAUTISTA MD [facility] 02-02-2015 influenza virus vacc ine, unspecified formulation JANICE BAUTISTA MD [facility] 02-11-2014 influenza virus vacc ine, unspecified formulation JANICE BAUTISTA MD [facility] 02-26-2013 zoster vaccine, live JANICE BAUTISTA MD [facility] 02-24-2013 influenza virus vacc ine, unspecified formulation JANICE BAUTISTA MD [facility] 02-24-2013 pneumococcal polysaccharide vaccine, 23 valent JANICE BAUTISTA MD [facility] Payers Date Payer Category Payer Self-pay [id number] 2023 Unknown [id number] 2021 Private Health Insurance ab3 [id number] 2021 Unknown [id number] 1950 Unknown [id number] 2.16.8 40.1.900244.3.579.2. 1950 Unknown [id number] 2.16.8 40.1.686214.3.579.2. 1950 Unknown [id number] 2.16.8 40.1.411140.3.579.2. 1950 Unknown [id number] 2.16.8 40.1.784980.3.579.2. 1950 Unknown [id number] 2.16. 840.1.591246.3.579.2.62 1950 Unknown [id number] 2.16. 840.1.727728.3.579.2.627 1950 Unknown [id number] 2.16. 840.1.960766.3.579.2.627 1950 Unknown [id number] 2.16. 840.1.735174.3.579.2.627 1950 Unknown [id number] 2.16. 840.1.150129.3.579.2.627 1950 Unknown [id number] 2.16. 840.1.799781.3.579.2.627 1950 Unknown [id number] 2.16.8 40.1.767320.3.579.2.62 1950 Unknown [id number] 2.16.8 40.1.460302.3.579.2.627 1950 Unknown [id number] 2.16.8 40.1.149127.3.579.2.627 1950 Unknown [id number] 2.16.8 40.1.664679.3.579.2.627 Unknown [id number] Unknown [id number] 2.16.8 40.1.069500.3.579.2.462 Unknown [id number] 2.16.8 40.1.260144.3.579.2.462 Unknown [id number] 2.16.8 40.1.988880.3.579.2.462 Unknown [id number] 2.16.8 40.1.964450.3.579.2.462 Social History Date Type Detail Facility Start: 02-09-2020 End: 02-15-2025 Never smoked tobacco (finding) [facility] Start: 1950 Sex Assigned At Female A [facility] Sexual Orientation [facility] Start: 10-29-2018 Sex Female (finding) [facility] Sex Female [facility] Functional Status Date Assessment Result Facility 01-27-2024 Functional Status Home Living Ad ditional Information OBJECTIVE Posture: forward head posture Gait: amb with FWW, slow pace; tends to ditch walker for short distances, antalgic gait Transfers: LLE outstretched, use of UEs Palpation: no pain with calf squeeze Edema: R calf 38cm, L calf 40.5cm; pt and educated on S&S of DVT/PE and to seek emergency medical care if arise AROM: 25 - [phone] PROM: 2 - 100 FOTO: 38 [facility] 06-14-2023 Functional Status ice on [facility] spital [facility] 06-14-2023 Functional Status Maintained, More than 8 hours [facility] 06-04-2023 Functional Status Sensory Deficits None A [facility] Mental Status Date Assessment Result Facility 06-14-2023 Mental Status Oriented x 4 [facility] Clinical Notes 03-27-2021 to 02-24-2025 Note Date & Type Note Facility 02-24-2025 Note Exam Date Time Procedure Performing Provider Status 02/24/25 7:15 AM MRI [facility] JERAMIE LUTZ MD; Auth (Verified) [id number] ORIGINAL EXAMINATION: MRCP1 7:19 am TECHNIQUE: MRCP was performed without the administration of intravenous contrast. COMPARISON: Abdominal ultrasound 01/08/2025. HISTORY: ORDERING SYSTEM PROVIDED HISTORY: Reason for Exam: Other specified diseases of biliary tract, Dilated common duct. FINDINGS: This is a non-contrast study and is not intended or optimized for evaluating solid organ pathology, including mass lesions. There is no intrahepatic bile duct dilatation. The common hepatic and common bile ducts are dilated. The common bile duct measures 1.1 cm. There is no choledocholithiasis. The pancreatic duct is normal in morphology and caliber with no suggestion of pancreas divisum. There is no peripancreatic edema/fluid or other indicators of acute pancreatitis on this study. The gallbladder is surgically absent. IMPRESSION: Dilatation of the common hepatic and common bile ducts without choledocholithiasis. Findings may be secondary to a post cholecystectomy state. I have personally reviewed the images of this examination and agree with the resident's findings and interpretation. Interpreted by: Jeramie Lutz MD Preliminary Report By: Dragan eRis Electronically signed By Jeramie Lutz MD Dictated Date: 02/24/2025 8:48:01 AM Prelim Date: 02/24/2025 12:25:42 PM Sign Date: 02/24/2025 12:25:42 PM Ordering Provider: JAZMINE CULVER RP [facility]10-13-2025 [facility] [address] [place] [address] OFFICE VISIT Date of Service: 02/15/25 MR#: [id number] Acct: [id number] Name: KHOI CAPUTO Rep #: [id number] : 1950 Provider: CAROLYN Culver Age/Sex: 74/F [place] [facility] Status: Signed Intake Vital Signs 02/15/25 08:09 Height 5 ft 6 in Weight: 172 lb 8 oz BMI 27.8 BP 151/106 H Respiration 18 Pulse 81 Temp 97.7 F L Temp Source Temporal Pulse Oximetry (%) 96 Oxygen Delivery Method room air Intake Visit Reasons: Liver Enzymes Chief Complaint: elevated liver enzymes Health Plan Advisor Required: No Accompanied by: Is patient in pain?: No Allergies lisinopril Adverse Reaction (Unknown, Verified 02/15/25 07:57) cough Medications ?Medication ?Instructions ?Recorded ?Confirmed ?Type ascorbic acid (vitamin C) 500 mg mg PO QDAY 02/02/25 1 History capsule atorvastatin 20 mg tablet (Lipitor) 20 mg PO QDAY 01/0602/15/25 History lactobacillus combination no.9 4 4,000 mmu cells PO QD AY 02/02/25 02/15/25 History billion cell capsule (Adult 50 Plus Probiotic) levothyroxine 150 mcg capsule 150 mcg PO QDAY 02/02/25 02/15/25 History losartan 25 mg tablet 25 mg PO QDAY 02/02/2502/15 History multivitamin 1 tab PO QDAY 02/02/2502/15 History zinc sulfate 50 mg zinc (220 mg) 50 mg PO QDAY 02/02/ 5 02/15/25 History tablet alfalfa 1,000 mg tablet 500 mg PO QDAY 02/15/2502/03 History Have you fallen in the past year?: No PFSH Medical History TTS (tarsal tunnel syndrome) Cataracts, bilateral Gallstones Thyroid disease Frequent headaches Bone fracture Surgical History History of knee replacement History of cataract surgery History of carpal tunnel surgery Hx of tonsillectomy History of cholecystectomy Family History Mother Breast cancer Arthritis Father Colon cancer Social History Smoking Status: Never smoker alcohol intake: never substance use type: does not use HPI HPI Chief Complaint: elevated liver enzymes Details: LABS 01/05/2025 AST normal, ALT 63, ALP 268, T. Bili 0.7 11/16/2024 AST normal., ALT 62, ALP 266, T. Bili 0.7 GGT 01/05/2025 345 TSH 01/05/2025 normal HAV Total Ab: HBVsA01/05/2025 negative HBVsAb: HBV Core Ab Total: HCV Ab: 01/05/2025 negative HIV: 03/19/2024 negative Alcohol: denies Herbals: Latimer OTC: Vitamin C, Zinc, M. Vit, probiotic ATB: denies NSAIDS: denies Fever: denies Jaundice: denies Pruritus: denies Weight loss: denies ABD pain: denies CCX long time ago Denies any family h/o liver disease Father with colon CA - last colon 07/26/2020 - denies any bleeding - denies any change in bowel habits ROS Const Constitutional: No fatigue, fever(s) or weight change ENT ENT: No difficulty swallowing Gastro GI: No abdominal pain, belching, bloating, change in bowel habits, change in stool character, coffee ground emesis, constipation, cramping, diarrhea, heartburn, difficulty swallowing, feeling full early, excessive flatus, incontinent of stools, Vomiting blood/hematemesis, Blood in stool, loose stool s,Black,tarry stools, nausea/dyspepsia, pain with swallowing, vomiting or other Musc Musculoskeletal: Positive for joint pain, back pain, muscle cramps, stiffness, Arthritis and sciatica Skin Skin: No yellowing of the eye or itchy eyes Psych Psychiatric: No anxiety and No depression Endo Endocrine: No fatigue or weight change Aller/Imm Allergy/Immunologic: No itchy eyes Jonathan/Lymp Hematologic/Lymphatic: No easy bleeding or easy bruising Assessment and Plan Assessment and Plan (1) Elevated alkaline phosphatase level: Status: Acute (2) Elevated ALT measurement: Status: Acute (3) Dilated cbd, acquired: Status: Acute (4) Elevated serum GGT level: Status: Acute (5) Family history of colon cancer: Status: Acute Comment: Father (6) Personal history of colonic polyps: Status: Acute Orders: Orders Anti-Mitochondrial AB Today K83.8 - Other specified diseases of biliary tract, R74.01 - Elevation of levels of liver transaminase levels, R74.8 - Abnormal levels of other serum enzymes CHRISTOPHER w/ Reflex Mult Confirm Today K83.8 - Other specified diseases of biliary tract, R74.01 - Elevation of levels of liver transaminase levels, R74.8 - Abnormal levels of other serum enzymes Liver Profile Today K83.8 - Other specified diseases of biliary tract, R74.01 - Elevation of levels of liver transaminase levels, R74.8 - Abnormal levels of other serum enzymes Hepatitis A AB, Total Today K83.8 - Other specified diseases of biliary tract, R74.01 - Elevation of levels of liver transaminase levels, R74.8 - Abnormal levels of other serum enzymes Hepatitis B Core Ab Total Today K83.8 - Other specified diseases of biliary tract, R74.01 - Elevation of levels of liver transaminase levels, R74.8 - Abnormal levels of other serum enzymes Hepatitis B Surface Antibody Today K83.8 - Other specified diseases of biliary tract, R74.01 - Elevation of levels of liver transaminase levels, R74.8 - Abnormal levels of other serum enzymes IgG Subclasses Today K83.8 - Other specified diseases of biliary tract, R74.01 - Elevation of levels of liver transaminase levels, R74.8 - Abnormal levels of other serum enzymes MRCP Abdomen without Contrast Today K83.8 - Other specified diseases of biliarytract, R74.01 - Elevation of levels of liver transaminase levels, R74.8 - Abnormal levels of other serum enzymes Angiotensin Convert Enzyme Today K83.8 - Other specified diseases of biliary tract, R74.01 - Elevation of levels of liver transaminase levels, R74.8 - Abnormal levels of other serum enzymes Plan 74-year-old female presents for initial consultation of elevated liver enzymes. Labs completed 01/05/2025 reveal AST normal at 38, ALT mildly elevated at 63, andalkaline phosphatase elevated to 268. PMH significant for diabetes mellitus type 2, and hypothyroidism. Abdominal ultrasound performed 01/08/2025 reveals a normal-appearing liver, CBD 12.1 mm S/P cholecystectomy, negative for choledocholithiasis. She denies any abdominal pain, weight loss, pruritus, or fevers. She denies the use of any antibiotics, and NSAIDS. She does take alfalfa daily, but denies any other herbal supplements. I have ordered additional labs and MRCP. She should follow-up in the office in 6 weeks to review results. Her last colonoscopy was performed July 2020. Her family history is significant for father with coloncancer and I recommend repeating a colonoscopy July 2025. EUS should be considered if MRCP is negative with unexplained cholestatic liver enzyme elevation and CBD dilation, as this offers superior diagnostic yield for occult obstruction and malignancy. Patient Instructions: Patient to have labs [facility] at [facility] today Patient plans to have MRCP performed at [facility] Follow-up in office in 6 weeks Colonoscopy recommended July 2025 Plan Details Follow Up: 6 Weeks Coding Level of Care Code Off vis,new,level 4 Diagnoses Elevated alkaline phosphatase level R74.8 Elevated ALT measurement R74.01 Dilated cbd, acquired K83.8 Elevated serum GGT level R74.8 Family history of colon cancer Z80.0 Personal history of colonic polyps Z86.0100 Clinical Quality Measures Falls Risk Screening/Assistive Devices Have you fallen in the past year?: No Smoking Screening Smoking Status: Never smoker 02/15/25 0831 romulo LEON> Date _ Jazmine Alex PERSONNEL RECORDS CLERK-C Cosigner Signature: Date (if applicable) CC: ~ [facility]09-05-2025 Note* Exam Date Time Procedure Performing Provider Status 01/08/25 8:53 AM US Abdomen Limited YAHIR CAGLE DO; Auth (Verified) [id number] ORIGINAL EXAMINATION: RIGHT UPPER QUADRANT ULTRASOUND 01/08/2025 8:53 am COMPARISON: None. HISTORY: ORDERING SYSTEM PROVIDED HISTORY: Reason for Exam: elevated liver enzymes, GGT All images are recorded and archived. FINDINGS: LIVER: The liver demonstrates normal echogenicity without evidence of intrahepatic biliary ductal dilatation. Liver measures 14.3 cm in length with normal hepatopetal flow in the main portal vein. BILIARY SYSTEM: Gallbladder surgically absent. Common bile duct measures 12.1 mm in dimension without choledocholith. Appearance may relate to reservoir effect. RIGHT KIDNEY: The right kidney is grossly unremarkable without evidence of hydronephrosis. Kidney measures 9.1 x 4.7 x 4.4 cm with appropriate cortical thickness and echotexture. PANCREAS: Visualized portions of the pancreas are unremarkable. OTHER: No evidence of right upper quadrant ascites. IMPRESSION: 1. Status post cholecystectomy with dilated common bile duct measuring 12.1 mm. This may relate to reservoir effect. 2. No acute right upper quadrant pathology. Interpreted by: Yahir Cagle DO Preliminary Report By: Yahir Cagle DO Electronically signed By Yahir Cagle DO Dictated Date: 01/08/2025 10:50:00 AM Prelim Date: 01/08/2025 10:51:20 AM Sign Date: 01/08/2025 10:51:20 AM Ordering Provider: [facility]05-28-2025 Note* Exam Date Time Procedure Performing Provider Status 09/30/24 8:52 AM MA Mammo Screening [facility]/MADELEINE Rebollar MD; Auth (Verified) [id number] ORIGINAL FROM: [facility] [address] [place] [id number] PROCEDURE FOR: KHOI CAPUTO [address] [place] [address] Home: PID#: [id number] Exam#: [id number] : 1950 Age: 73 TO: BEBE YAN RUG REPAIRER [address] [facility], [place] [address] Fax: NO FAX EXAMINATION: SCREENING DIGITAL BILATERAL MAMMOGRAM WITH TOMOSYNTHESIS, 09/30/2024 8:38 am TECHNIQUE: Screening mammography of the bilateral breasts was performed with tomosynthesis. 2D standard and 3D tomosynthesis combination imaging performed through both breasts in the MLO and CC projection. Computer aided detection was utilized in the interpretation of this exam. COMPARISON: August 30, 2023, July 11, 2022, July 10, 2021 HISTORY: Breast cancer screening. FINDINGS: BREAST DENSITY: The breasts are heterogeneously dense, which may obscure small masses. There are bilateral benign-type calcifications. There is no significant mass, architectural distortion or microcalcification. Fibroglandular pattern is stable. IMPRESSION: No mammographic evidence of malignancy. Continued screening with annual mammograms is recommended. Tyrer Cuzick risk calculations, generated with the history provided, report this patient's 10 year risk and lifetime risk for developing breast cancer at 11.5% and 16.5%, respectively. Based on this assessment tool, if the patient's calculated lifetime risk is below 20%, then the patient is considered at average risk for developing breast cancer. If the patient's calculated lifetime risk is at or above 20%, then the patient is considered high risk for developing breast cancer and may be a candidate for supplemental breast MRI screening in addition to annual mammographic screening per the [employer]. BIRADS: MAMMOGRAM BI-RADS: 2: Benign finding RECALL: 1 year screening RECALL TYPE: mammo LETTER SENT: Normal BI-RADS 1 and 2 Interpreted by: Madeleine Colbert Preliminary Report By: Madeleine Colbert Electronically signed By Madeleine Colbert Dictated Date: 09/30/2024 9:12:54 AM Prelim Date: 09/30/2024 9:16:33 AM Sign Date: 09/30/2024 9:16:33 AM Ordering Provider: BEBE YAN Insurance Appraiser: EDITH LAL RT(R)(M)(CT) letter sent: Normal BI-RADS 1 and 2 Mammogram BI-RADS: 2 Benign [facility]08-27-2024 Note ORIGINAL EXAMINATION: CT OF THE LEFT KNEE WITHOUT CONTRAST12/31/2023 8:[address] of the left knee without contrast TECHNIQUE: Axial images of the knee are obtained with sagittal and coronal reconstructions. Limited axial imaging is also performed through the ipsilateral hip and ankle joints. This exam was performed according to our departmental dose-optimization program which includes automated exposure control, adjustment of the mA and/or kVp according to patient size and/or use of iterative reconstruction technique where applicable. COMPARISON: None HISTORY: ORDERING SYSTEM PROVIDED HISTORY: Reason for Exam: PRIMARY OSTEOARTHRITIS, , FINDINGS: Left knee: No acute or aggressive skeletal abnormality is seen in the knee. There is osteoarthritis in the knee with large marginal osteophytes. No significant narrowing of the medial and lateral femorotibial compartments. There is moderate superolateral subluxation of the patella in relation to the femoral trochlea on the axial images. There is lateral patellofemoral marginal spurring and subchondral cystic changes in the lateral patellar and trochlear facets. There is small knee joint effusion, no significant popliteal cyst. The musculature around the knee shows no atrophy or other significant contributory abnormality. Hip: Limited axial images through the hip joint. There is mild hip joint osteoarthritis. Ankle: Limited axial images of the ankle are also obtained. There is small subchondral cystic change in the anterolateral dome of the talus. A 4-5 mm calcific loose body is present at the level of the tibia-fibular syndesmosis. There is a small well corticated ossicle anterior distal to the lateral malleolus that may be remote nonunited avulsion fracture. IMPRESSION: Osteoarthritis of the left knee that is most prominent in the patellofemoral compartment. 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 Interpreted by: Marek Cruz MD Preliminary Report By: Marek Cruz MD Electronically signed By Marek Cruz MD Dictated Date: 12/31/2023 9:45:30 AM Prelim Date: 12/31/2023 9:51:59 AM Sign Date: 12/31/2023 9:51:59 AM [facility]ing [facility] ORIGINAL EXAMINATION: BONE DENSITOMETRY 08/30/2023 2:22 pm TECHNIQUE: A bone density dual x-ray absorptiometry (DEXA) scan was performed of the lumbar spine and left hip on a Hologic system. COMPARISON: None. HISTORY: ORDERING SYSTEM PROVIDED HISTORY: Reason for Exam: Osteoporosis Screening screening Postmenopausal FINDINGS: LEFT HIP: The bone mineral density in the total hip is measured at 0.999 g/cm2 corresponding to a T-score of 0.5. This is within the normal range by WHO criteria. The bone mineral density of the femoral neck is measured at 0.788 g/cm2 corresponding to a T-score of -0.5. This is within the normal range by WHO criteria. Lumbar spine: The bone mineral density of the lumbar spine, L1 through L4 is measured at 0.934 g/cm2 corresponding to a T-score of -1.0. This is within the normal range by WHO criteria. 10 year probability of fracture: FRAX not reported as all T-scores for the total hip, spine or femoral neck are at or above -1.0. IMPRESSION: Normal DEXA study by WHO criteria. Interpreted by: Laina Davalos Preliminary Report By: Laina Davalos Electronically signed By Laina Davalos Dictated Date: 08/30/2023 2:58:01 PM Prelim Date: 08/30/2023 2:59:34 PM Sign Date: 08/30/2023 2:59:34 PM Ordering Provider: [facility]02-09-2024 Evaluation + Plan noteExtracted from: Title:Clinical Document Author:JAYLEN OAKES PM Date:06/14/23 [place] ADMISSION HISTORY AN D PHYSICIAL CHIEF COMPLAINT: HISTORY OF PRESENT ILLNESS: REVIEW OF SYSTEMS: ACTIVE PROBLEMS: (15) Arthritis (6827030) Decreased renal function (55482316) Elevated fasting glucose (535649736) Encounter for Medicare annual wellness exam (134836846) Hyperglycemia (029465029) Hypothyroidism (81415880) Leg cramp (8261730023) Mild hyperlipidemia (82196096) Multiple joint pain (376589351) Saphenous vein clot (5899241330) Screening for breast cancer (811637640) Screening for osteoporosis (318186010) Syncope (542568013) Varicose vein of leg (587538532) Vertigo (8493134196) MEDICATIONS: Active Inpt Meds: cefOXitin Start: 06/14/23 10:12:00 EST, Dose = 1 gram(s), IV Piggyback, PREOP pharm, Rate: 200 mL/hr, Infuse over: 30 minute(s), 06/14/23 10:12:00 EST Active PRN Meds: None One Time Meds: None Active IV Meds: Lactated Ringers Infusion 1000 mL (LR 1000 mL) Start: 06/14/23 10:12:00 EST, Rate: 125 mL/hr, 06/14/23 10:12:00 EST ALLERGIES: (1) NKA FAMILY HISTORY: SOCIAL HISTORY: PHYSICAL EXAM: VITALS: MmkhptMwxbWDHmomuLMZqN1ZZW6MjcoQj(kg) 06/14 10:1336.6--706560PT99/09 83.0 24 Hr Tmax: 36.6 at 06/14 10:13 36 Hr Tmax: 36.6 at 06/14 10:13 Vital Signs are the last 5 in the past 48 hours. Weights display the last 5 within 7 days. Initial Wt: 06/14 83.0 kg 183 lb Current Wt: 06/14 83.0 kg 183 lb GENERAL: HEENT: CARDIOVASCULAR: RESPIRATORY: ABDOMEN: EXREMETIES: NEUROLOGICAL: PSYCHIATRIC: LABS: No 36hr Lab Data DIAGNOSTICS: IMPRESSION: PLAN: History and Physical Update I have examined the patient; reviewed the H&P and there are no changes to the H&P unless noted below. [facility] 02-09-2024 Hospital Discharge instructions Patient Education 06/14/2023 11:26:48 Incision Care, Adult Incision Care, Adult An incision is a surgical cut that is made through your skin. Most incisions are closed after surgery. Your incision may be closed with stitches (sutures), sandip, skin glue, or adhesive strips. Youmay need to return to your health care provider to have sutures or sandip removed. This may occur several days to several weeks after your surgery. The incision needs to be cared for properly to prevent infection. How to care for your incision Incision care Follow instructions from your health care provider about how to take care of your incision. Make sure you: ?Wash your hands with soap and water before you change the bandage (dressing). If soap and water are not available, use hand waxer operator. ?Change your dressing as told by your health care provider. ?Leave sutures, skin glue, or adhesive strips in place. These skin closures may need to stay in place for 2 weeks or longer. If adhesive strip edges start to loosen and curl up, you may trim the loose edges. Do not remove adhesive strips completely unless your health care provider tells you to do that. Check your incision area every day for signs of infection. Check for: ?More redness, swelling, or pain. ?More fluid or blood. ?Warmth. ?Pus or a bad smell. Ask your health care provider how to clean the incision. This may include: ?Using mild soap and water. ?Using a clean towel to pat the incision dry after cleaning it. ?Applying a cream or ointment. Do this only as told by your health care provider. ?Covering the incision with a clean dressing. Ask your health care provider when you can leave the incision uncovered. Do not take baths, swim, or use a hot tub until your health care provider approves. Ask your healthcare provider if you can take showers. You may only be allowed to take sponge baths for bathing. Medicines If you were prescribed an antibiotic medicine, cream, or ointment, take or apply the antibiotic as told by your health care provider. Do not stop taking or applying the antibiotic even if your condition improves. Take kaiv-nyi-usytmow and prescription medicines only as told by your health care provider. General instructions Limit movement around your incision to improve healing. ?Avoid straining, lifting, or exercise for the first month, or for as long as told by your health care provider. ?Follow instructions from your health care provider about returning to your normal activities. ?Ask your health care provider what activities are safe. Protect your incision from the sun when you are outside for the first 6 months, or for as long as told by your health care provider. Apply sunscreen around the scar or cover it up. Keep all follow-up visits as told by your health care provider. This is important. Contact a health care provider if: Your have more redness, swelling, or pain around the incision. You have more fluid or blood coming from the incision. Your incision feels warm to the touch. You have pus or a bad smell coming from the incision. You have a fever or shaking chills. You are nauseous or you vomit. You are dizzy. Your sutures or sandip come undone. Get help right away if: You have a red streak coming from your incision. Your incision bleeds through the dressing and the bleeding does not stop with gentle pressure. The edges of your incision open up and separate. You have severe pain. You have a rash. You are confused. You faint. You have trouble breathing and a fast heartbeat. This information is not intended to replace advice given to you by your health care provider. Make sure you discuss any questions you have with your health care provider. Document Released: 11/09/2005 Document Revised: 04/24/2019 Document Reviewed: 11/07/2016 [employer] Patient Education 2020 [employer]. 06/14/2023 11:26:15 Monitored Anesthesia Care, Care After Monitored Anesthesia Care, Care After These instructions provide you with information about caring for yourself after your procedure. Your health care provider may also give you more specific instructions. Your treatment has been plannedaccording to current medical practices, but problems sometimes occur. Call your health care provider if you have any problems or questions after your procedure. What can I expect after the procedure? After your procedure, you may: Feel sleepy for several hours. Feel clumsy and have poor balance for several hours. Feel forgetful about what happened after the procedure. Have poor judgment for several hours. Feel nauseous or vomit. Have a sore throat if you had a breathing tube during the procedure. Follow these instructions at home: For at least 24 hours after the procedure: Have a responsible adult stay with you. It is important to have someone help care for you until youare awake and alert. Rest as needed. Do not: ?Participate in activities in which you could fall or become injured. ?Drive. ?Use heavy machinery. ?Drink alcohol. ?Take sleeping pills or medicines that cause drowsiness. ?Make important decisions or sign legal documents. ?Take care of children on your own. Eating and drinking Follow the diet that is recommended by your health care provider. If you vomit, drink water, juice, or soup when you can drink without vomiting. Make sure you have little or no nausea before eating solid foods. General instructions Take yrri-jrn-xdmnhez and prescription medicines only as told by your health care provider. If you have sleep apnea, surgery and certain medicines can increase your risk for breathing problems. Follow instructions from your health care provider about wearing your sleep device: ?Anytime you are sleeping, including during daytime naps. ?While taking prescription pain medicines, sleeping medicines, or medicines that make you drowsy. If you smoke, do not smoke without supervision. Keep all follow-up visits as told by your health care provider. This is important. Contact a health care provider if: You keep feeling nauseous or you keep vomiting. You feel light-headed. You develop a rash. You have a fever. Get help right away if: You have trouble breathing. Summary For several hours after your procedure, you may feel sleepy and have poor judgment. Have a responsible adult stay with you for at least 24 hours or until you are awake and alert. This information is not intended to replace advice given to you by your health care provider. Make sure you discuss any questions you have with your health care provider. Document Released: 08/12/2016 Document Revised: 07/21/2018 Document Reviewed: 08/12/2016 [employer] Patient Education 2020 [employer]. Follow Up Care 05/20/2023 14:53:43 With:JAYLEN OAKES DPM, Surgery Address: [address] [place] [address], [place] [facility] [place], [place] [id number]- When:06/20/2023 08:40:00 Comments:Follow-up as scheduled [facility] 02-09-2024 Summary of episode note Discharge Instructions Thank you for allowing [facility] to assist you with your healthcare needs. The following is importantdischarge information regarding your hospital visit. Your Care Team BEBE YAN APRN-OPAL Your Diagnosis FOOT SURGERY What to do next Instructions From Your Doctor SEE INSTRUCTION SHEET Follow Up Appointments Follow Up with JAYLEN OAKES DPM, Surgery When 06/20/2023 08:40 AM EST Why: Follow-up as scheduled [facility] [facility] [place] [address] [facility] [place], [place] [id number]- The Following Activity and Diet Have Been Ordered for You Discharge Activity - Ordered -- Other, Follow the post-operative/post-procedure activity instructions provided by your physician's office., 06/14/23 11:19:00 EST No qualifying data available. The Following Equipment Has Been Ordered for You Discharge Home Equipment Discharge Wound Care - Ordered -- Follow the post-operative/post-procedure wound care instructions provided by your physician's office., 06/14/23 11:19:00 EST Allergies NKA Medications Please ask your primary doctor or pharmacist before taking any other medication not listed, including over the counter drugs, herbal medications, vitamins and or supplements as they may interact withyour home medications. What How Much When Instructions Last Dose Unchanged acetaminophen-oxyCODONE (acetaminophen-oxyCODONE 325 mg-5 mg oral tablet) 1 tab(s) by mouth Every 6 hours as needed for for pain Unchanged ascorbic acid (Vitamin C) 500 Milligram by mouth Once a day Unchanged aspirin (aspirin 81 mg oral delayed release tablet) 1 tab(s) by mouth Every day Unchanged herbal/ nutritional product (Latimer capsule) 1,000 Milligram by mouth Every day Unchanged herbal/ nutritional product (Probiotic) 1 capsule by mouth Every day Unchanged levothyroxine (levothyroxine 175 mcg (0.175 mg) oral tablet) 1 tab(s) by mouth Once a day No dose on Sundays Unchanged multivitamin (Multivitamin) 1 tab(s) by mouth Every day Unchanged multivitamin with minerals (Calcium with Vitamin D and Magnesium oral tablet, chewable) 1 tab(s) Chewed Two (2) times a day Unchanged zinc sulfate (Zinc) 50 Milligram by mouth Once a day Please take this list to your next doctor s visit. Bring all medications you take, including over the counter medications, herbals and other supplements with you to your doctor s visit. Patients and families are reminded to discard old lists and to update any records with all medication providers or retail pharmacies. Education Materials Incision Care, Adult An incision is a surgical cut that is made through your skin. Most incisions are closed after surgery. Your incision may be closed with stitches (sutures), sandip, skin glue, or adhesive strips. Youmay need to return to your health care provider to have sutures or sandip removed. This may occur several days to several weeks after your surgery. The incision needs to be cared for properly to prevent infection. How to care for your incision Incision care Follow instructions from your health care provider about how to take care of your incision. Make sure you: ? Wash your hands with soap and water before you change the bandage (dressing). If soap and water arenot available, use hand waxer operator. ? Change your dressing as told by your health care provider. ? Leave sutures, skin glue, or adhesive strips in place. These skin closures may need to stay in place for 2 weeks or longer. If adhesive strip edges start to loosen and curl up, you may trim the looseedges. Do not remove adhesive strips completely unless your health care provider tells you to do that. Check your incision area every day for signs of infection. Check for: ? More redness, swelling, or pain. ? More fluid or blood. ? Warmth. ? Pus or a bad smell. Ask your health care provider how to clean the incision. This may include: ? Using mild soap and water. ? Using a clean towel to pat the incision dry after cleaning it. ? Applying a cream or ointment. Do this only as told by your health care provider. ? Covering the incision with a clean dressing. Ask your health care provider when you can leave the incision uncovered. Do not take baths, swim, or use a hot tub until your health care provider approves. Ask your healthcare provider if you can take showers. You may only be allowed to take sponge baths for bathing. Medicines If you were prescribed an antibiotic medicine, cream, or ointment, take or apply the antibiotic as told by your health care provider. Do not stop taking or applying the antibiotic even if your condition improves. Take zxdp-jcj-xxywyev and prescription medicines only as told by your health care provider. General instructions Limit movement around your incision to improve healing. ? Avoid straining, lifting, or exercise for the first month, or for as long as told by your health care provider. ? Follow instructions from your health care provider about returning to your normal activities. ? Ask your health care provider what activities are safe. Protect your incision from the sun when you are outside for the first 6 months, or for as long as told by your health care provider. Apply sunscreen around the scar or cover it up. Keep all follow-up visits as told by your health care provider. This is important. Contact a health care provider if: Your have more redness, swelling, or pain around the incision. You have more fluid or blood coming from the incision. Your incision feels warm to the touch. You have pus or a bad smell coming from the incision. You have a fever or shaking chills. You are nauseous or you vomit. You are dizzy. Your sutures or sandip come undone. Get help right away if: You have a red streak coming from your incision. Your incision bleeds through the dressing and the bleeding does not stop with gentle pressure. The edges of your incision open up and separate. You have severe pain. You have a rash. You are confused. You faint. You have trouble breathing and a fast heartbeat. This information is not intended to replace advice given to you by your health care provider. Make sure you discuss any questions you have with your health care provider. Document Released: 11/09/2005 Document Revised: 04/24/2019 Document Reviewed: 11/07/2016 [employer] Patient Education 2020 [employer]. Monitored Anesthesia Care, Care After These instructions provide you with information about caring for yourself after your procedure. Your health care provider may also give you more specific instructions. Your treatment has been plannedaccording to current medical practices, but problems sometimes occur. Call your health care provider if you have any problems or questions after your procedure. What can I expect after the procedure? After your procedure, you may: Feel sleepy for several hours. Feel clumsy and have poor balance for several hours. Feel forgetful about what happened after the procedure. Have poor judgment for several hours. Feel nauseous or vomit. Have a sore throat if you had a breathing tube during the procedure. Follow these instructions at home: For at least 24 hours after the procedure: Have a responsible adult stay with you. It is important to have someone help care for you until youare awake and alert. Rest as needed. Do not: ? Participate in activities in which you could fall or become injured. ? Drive. ? Use heavy machinery. ? Drink alcohol. ? Take sleeping pills or medicines that cause drowsiness. ? Make important decisions or sign legal documents. ? Take care of children on your own. Eating and drinking Follow the diet that is recommended by your health care provider. If you vomit, drink water, juice, or soup when you can drink without vomiting. Make sure you have little or no nausea before eating solid foods. General instructions Take ciit-vvq-yyumkuc and prescription medicines only as told by your health care provider. If you have sleep apnea, surgery and certain medicines can increase your risk for breathing problems. Follow instructions from your health care provider about wearing your sleep device: ? Anytime you are sleeping, including during daytime naps. ? While taking prescription pain medicines, sleeping medicines, or medicines that make you drowsy. If you smoke, do not smoke without supervision. Keep all follow-up visits as told by your health care provider. This is important. Contact a health care provider if: You keep feeling nauseous or you keep vomiting. You feel light-headed. You develop a rash. You have a fever. Get help right away if: You have trouble breathing. Summary For several hours after your procedure, you may feel sleepy and have poor judgment. Have a responsible adult stay with you for at least 24 hours or until you are awake and alert. This information is not intended to replace advice given to you by your health care provider. Make sure you discuss any questions you have with your health care provider. Document Released: 08/12/2016 Document Revised: 07/21/2018 Document Reviewed: 08/12/2016 [employer] Patient Education 2020 [employer]. Additional Information VACCINATE! IT SAVES LIVES! Members of the community who have not yet received the COVID-19 vaccine and would like to receive it can visit one of [facility] vaccine clinics. There are many vaccine clinic locations within the [facility]. For locations and available times, please visit https://gettheshot.coronavirus.[place].gov/. It is important to note that some COVID mobile vaccine clinics are held outdoors and may be canceled in rainy or stormy conditions. To learn more about pediatric vaccinations (ages 5-11), we invite you to visit the [facility] webpage. [email or web address]/[email or web address] [email or web address] learn more about the COVID-19 vaccine, we invite you to visit the CDC website for a list of frequently asked questions.https://www.cdc.gov/coronavirus/2019-ncov/vaccines/faq.html [facility] Patient Portal Access Instructions: Stay connected with your healthcare team and access your personal medical information anytime with the [facility] Patient Portal. Please follow the directions below to create your [facility] account: 1.Access the email account you provided upon registration to the hospital/physician office.2.Look for an invitation email from [facility].3.Open the email and access the invitation link: AcceptInvitation to [facility].4.Fill in the required turner to create your account. To access your account, visit [email or web address]. Click the blue button labeled Access Patient Portal and then log in with the username and password that you created in the steps above. You will be able to view your test results, lab results, a summary of your visits, upcoming appointments and more. There is also a convenient messaging option where you can send secure messages to your p rovider. In addition, you will have the ability to download any documents or summaries to your computer and/or send the information securely to a physician. Remember that your healthcare information is confidential, so carefully consider who you will allowto register on the [facility] Patient Portal for access to your information. You can also access the [facility] Patient Portal on the [facility] jovanna. Simply click on Patient Portal and then log into your account. If you would like to receive a full copy of your medical records, please contact the [facility] Medical Records Department by calling [phone], Saturday through Saturday between 8 a.m. and 4:30 p.m. HOW TO SAFELY DISPOSE OF PRESCRIPTION MEDICATIONS Please use one of the following methods to safely dispose of your unused medications. 1.Use a drug disposal kit: the drug disposal pouch allows you to safely discard your old and unuseddrugs. Ask your nurse to give you one when you are discharged.2.Visit a local take-back location: Many local pharmacies and police departments have programs that collect old and unwanted prescriptiondrugs. Call your local pharmacy or go to http://bit.MobiVita/1B5Fm5x to find one close to you.3.Make use of household items: Use cat litter or old coffee grounds to dispose medications if other options arenot available. Mix your drugs with these household products, seal them in an airtight container andthrow it into the garbage. Call [facility]: [phone] to be sure your drugs can be disposed of in this way. Some medicines may require a different approach.4.Never flush your medications down the toilet. IF YOU HAVE BEEN PRESCRIBED AN OPIOID FOR PAIN If you have been prescribed an opioid (such as hydrocodone, oxycodone or morphine), it is critical to understand the possible side effects and risks of opioid pain medications. Even when taken as directed, opioids can have several side effects including: Tolerance, meaning you might need to take more of a medication for the same pain relief. Nausea, vomiting and/or constipation. Sleepiness, dizziness, dry mouth, confusion, depression or itching. Physical dependence, meaning you have withdrawal symptoms when a medication is stopped, can develop within a few days. KNOW YOUR RESPONSIBILITIES It is important to know exactly how much and how often to take the opioid pain medications you are prescribed. Never take opioids in higher amounts or more often than prescribed. Do not combine opioids with alcohol or other drugs that cause drowsiness, such as benzodiazepines, also known as benzos, including diazepam and alprazolam, muscle relaxants or sleep aids. Never sell or share prescription opioids. This is illegal. Store opioids in a secure place and out of reach of others (including children, family, friends and visitors). The last page of this document has been signed and retained as a CHART COPY. Signatures Patient Education Materials Incision Care, Adult Monitored Anesthesia Care, Care After Medication Leaflets My discharge plan and instructions have been reviewed and explained to me and IPATITO JUDY understand my current condition and have read and understand these discharge instructions. I have received a written copy of the plan/instructions. If I have questions, I am aware that I should contact my doctor. 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 Family's history: negative. Health Status Allergies: Allergic Reactions (Selected) NKA, Allergies (1) ActiveReaction NKANone Documented Current medications: (Selected) Inpatient Medications Ordered LR 1000 mL: 125 mL/hr, Intravenous cefOXitin: 1 gram(s), 200 mL/hr, IV Piggyback, PREOP pharm Prescriptions Prescribed levothyroxine 175 mcg (0.175 mg) oral tablet: 175 mcg, 1 tab(s), Oral, qDay, No dose on Sundays, 90tab(s), 3 Refill(s) Documented Medications Documented Latimer capsule: 1,000 mg, Oral, Daily, 0 Refill(s) Calcium with Vitamin D and Magnesium oral tablet, chewable: 1 tab(s), Chewed, BID, 0 Refill(s) Multivitamin: 1 tab(s), Oral, Daily, 0 Refill(s) Probiotic: 1 capsule, Oral, Daily, 0 Refill(s) Vitamin C: 500 mg, Oral, qDay, 0 Refill(s) Zinc: 50 mg, Oral, qDay, 0 Refill(s) acetaminophen-oxyCODONE 325 mg-5 mg oral tablet: 1 tab(s), Oral, q6h, PRN: for pain, 0 Refill(s) aspirin 81 mg oral delayed release tablet: 81 mg, 1 tab(s), Oral, Daily, 0 Refill(s), Medications (2) Active Scheduled: (1) ceFOXitin 1 gram(s), IV Piggyback, PREOP pharm Continuous: (1) Lactated Ringers Infusion 1000 mL 1,000 mL, Intravenous, 125 mL/hr PRN: (0) Problem list: Medical Decreased renal function / SNOMED CT 00436196 / Confirmed Leg cramp / SNOMED CT 8926615490 / Confirmed Elevated fasting glucose / SNOMED CT 138456362 / Confirmed Hyperglycemia / SNOMED CT 038241246 / Confirmed Mild hyperlipidemia / SNOMED CT 41877353 / Confirmed Hypothyroidism / SNOMED CT 04022205 / Confirmed Multiple joint pain / SNOMED CT 096456549 / Confirmed Screening for osteoporosis / SNOMED CT 616877901 / Confirmed Encounter for Medicare annual wellness exam / SNOMED CT 928281748 / Confirmed Screening for breast cancer / SNOMED CT 752516498 / Confirmed Syncope / SNOMED CT 849468163 / Confirmed Saphenous vein clot / SNOMED CT 9046101536 / Confirmed Varicose vein of leg / SNOMED CT 145610444 / Confirmed Vertigo / SNOMED CT 0087066219 / Confirmed, Active Problems (15) Arthritis Decreased renal function Elevated fasting glucose Encounter for Medicare annual wellness exam Hyperglycemia Hypothyroidism Leg cramp Mild hyperlipidemia Multiple joint pain Saphenous vein clot Screening for breast cancer Screening for osteoporosis Syncope Varicose vein of leg Vertigo Histories Past Medical History: Resolved Left leg swelling (6525204827): Resolved. Family History: Breast cancer Mother Stroke Father Heart attack Mother Colon cancer Father Procedure history: Carpal tunnel release, left ([id number]) on 03/16/2015 at 64 Years. Comments: 06/04/2023 8:25 Connie Reyes RN left Cholecystectomy ([id number]) on 09/15/1980 at 29 Years. Dilation and curettage ([id number]) on 10/05/1979 at 28 Years. Tonsillectomy and adenoidectomy (362102436). Excision of cataract (40157764). Comments: 06/04/2023 8:26 Connie Reyes RN right Ligation and stripping of varicose vein of lower limb ([id number]). Comments: 06/04/2023 8:26 Connie Reyes RN left Colonoscopy ([id number]). 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 Physical Examination Vital Signs 06/14/2023 10:13 EST Temperature Temporal Artery 36.6 DegC Peripheral Pulse Rate 69 bpm Respiratory Rate 18 br/min Systolic Blood Pressure Non-Invasive 142 mmHg HI Diastolic Blood Pressure Non-Invasive 80 mmHg Vital Signs(last 24 hrs) Last Charted SBPH 142mmHg (JUN 14 10:13) DBP80 mmHg (JUN 14:) BMI29.76 (JUN 14:) Measurements from flowsheet : Measurements 06/14/2023 10:03 EST Height 167 cm Height in inches 65.7 inch(es) Admission Weight 83 kg Weight Lbs 182.6 lb [facility] Body Weight 58.72 kg BSA Admission 1.92 Body Mass Index 29.76 kg/m2 Pain assessment: Pain Assessment 06/14/2023 10:13 EST Primary Pain Intensity 0 Pain Scale Type 0-10 Pain scale . General: Alert and oriented. Airway: Normal temporomandibular joint mobility. Mallampati classification: II (soft palate, fauces, uvula visible). Dentition Evaluation: Denies loose/chipped teeth. Respiratory: Lungs are clear to auscultation, Respirations are non-labored. Cardiovascular: Normal rate, Regular rhythm. Neurologic: Alert, Oriented. Review / Management Results review: No qualifying data available , Lab results 06/14/2023 10:30 EST IHC At-Risk Indicator YES 06/14/2023 10:21 EST IHC At-Risk Indicator YES 06/14/2023 10:21 EST [place] History and Physical 06/14/2023 10:18 EST Lactated Ringers Injection Begin Bag 1,000 mL mL 06/14/2023 10:13 EST Temperature Temporal Artery 36.6 DegC Peripheral Pulse Rate 69 bpm Respiratory Rate 18 br/min Systolic Blood Pressure Non-Invasive 142 mmHg HI Diastolic Blood Pressure Non-Invasive 80 mmHg Primary Pain Intensity 0 Pain Scale Type 0-10 Pain scale Heart Rhythm Regular Oxygen Therapy Room air Oxygen Saturation 99 % Abdomen Description Non-distended, Soft Bowel Sounds All Quadrants Present Skin Description Normal for ethnicity Skin Integrity Intact Neurological Symptoms Patient denies Extremity Movement Equal Characteristics of Speech Clear Level of Consciousness Alert Strength All Extremities Strong, Moderate Sensation All Extremities Intact Affect/Behavior Appropriate, Calm, Cooperative Orientation Oriented x 4 Orientation Assessment Oriented x 4 Positioning Repositions self Sequential Compression Device right knee high applied/on Standard Safety ID band on, Call device within reach, Bed in low position, Wheels locked, Visitor at bedside, Safety level maintained 06/14/2023 10:09 EST Urinary Elimination Voiding, no difficulties IV Present Present Allergies No Anesthesia Extension Set Applied Yes Mannequin Mold Maker On Yes Patient Dressed In Hospital gown Pre-op Preparation Glasses removed CHG Preoperative Wash/Wipe Night before procedure, Day of procedure, Site specific wipe Preop Nasal Swab Povidone-Iodine CHG Skin Prep Completed for Eligible Surgery History & Physical Update On Chart Yes History & Physical On Chart Yes Obstructive Sleep Apnea Assess Completed No Allergy Band on and Verified Yes Patient ID Band on and Verified Yes Implants Verified No Pacemaker/AICD Verified No Site Verified by Patient/Family Yes Last Fluid Intake 06/13/2023 23:30 Last Food Intake 06/13/2023 20:00 Last Void 06/14/2023 10:11 06/14/2023 10:03 EST Designated Person #1 We May Share [facility] Tiago Caputo [phone] Designated Person #1 Relationship Spouse Designated Person #2 We May Share [facility] Chris Caputo [phone] Designated Person #2 Relationship Son Privacy Restrictions Requested None Height 167 cm Height in inches 65.7 inch(es) Admission Weight 83 kg Weight Lbs 182.6 lb [facility] Body Weight 58.72 kg BSA Admission 1.92 Body Mass Index 29.76 kg/m2 Patient Type Outpatient Status N/A Do You Wish/Go to Sleep/Never Wake Up No Thoughts of Harming Others - History No Thoughts of Suicide - History No Hospital Clergy to Visit Patient Verbalizes No Spiritual Needs Sensory Deficits None Advanced Directives Yes Advance Directive Type [facility] Power of Excavating Contractor [place] Declaration (Living Will) Advance Directive Location Unable to obtain copy Infectious Disease Symptoms Patient states no symptoms Infectious Disease Recent Exposure No Alcohol and Drug Use No Employee of Institutional Living No Health Care Employee No History of Exposure to TB No History of Positive Chest X-Ray for TB No History of Positive TB Skin Test No Homeless No Known Immunosuppression No Recent Immigrant No Resident of Institutional Living No Bloody Sputum No Fatigue No Fever No Loss of Appetite No Night Sweats No Persistent Cough > 3 Weeks No Weight Loss No Barriers to Learning None evident Teaching Method Explanation, Printed materials Preferred Spoken Language Maori Preferred Written Language Maori Teaching Evaluation No further teaching needed Safety Brochure Information Reviewed Yes [facility] Video Viewed No Information Given by Patient Patient's Current Physicians Patient's Current Physicians Discharge To, Anticipated Home with family care Prev Test Positive/Diagnosis w/COVID-19 No Current Quarantine/Isolated any Illness No Any Contact with Sick Animals/Birds No Traveled Anywhere in Last 30 Days No Lost Weight Unintentionally Recently No Eat Poorly Due to Decreased Appetite No Total MST Score 0 N/A Personal Devices, Patient Valuables Glasses Admission Note-Nursing Patient History (AO) 06/14/2023 10:01 EST Consent Form Signed Yes Belongings At Bedside Dress, Glasses, Shirt, Shoes, Socks, Sweatshirt, Undergarments NPO Status Maintained, More than 8 hours Anesthesia Consent Signed Yes Blood Consent Signed Yes 06/14/2023 9:57 EST IHC At-Risk Indicator YES . Assessment and Plan [place] [employer] Anesthesiologists (ASA) physical status classification: Class III. Anesthetic Preoperative Plan Anesthetic technique: MAC. Postoperative pain management: Per surgeon. Risks discussed: nausea, vomiting, sore throat, dental injury, hypotension, allergic reaction, serious complications. Informed consent: signed by patient. Digitally Signed by SYEDA SHELBY on 06/14/2023 10:34 AM [facility]02-09-2024 Note [place] ADMISSION HISTORY AND PHYSICIAL CHIEF COMPLAINT: HISTORY OF PRESENT ILLNESS: REVIEW OF SYSTEMS: ACTIVE PROBLEMS: (15) Arthritis (8675154) Decreased renal function (66753931) Elevated fasting glucose (688834632) Encounter for Medicare annual wellness exam (627069991) Hyperglycemia (542414205) Hypothyroidism (82777430) Leg cramp (3159593508) Mild hyperlipidemia (97310469) Multiple joint pain (963388019) Saphenous vein clot (6849509849) Screening for breast cancer (186192017) Screening for osteoporosis (379196147) Syncope (651816558) Varicose vein of leg (903385426) Vertigo (1141229141) MEDICATIONS: Active Inpt Meds: cefOXitin Start: 06/14/23 10:12:00 EST, Dose = 1 gram(s), IV Piggyback, PREOP pharm, Rate: 200 mL/hr, Infuse over: 30 minute(s), 06/14/23 10:12:00 EST Active PRN Meds: None One Time Meds: None Active IV Meds: Lactated Ringers Infusion 1000 mL (LR 1000 mL) Start: 06/14/23 10:12:00 EST, Rate: 125 mL/hr, 06/14/23 10:12:00 EST ALLERGIES: (1) NKA FAMILY HISTORY: SOCIAL HISTORY: PHYSICAL EXAM: VITALS: [id number](kg) 06/14 10:1336.6--305105BZ07/09 83.0 24 Hr Tmax: 36.6 at 06/14 10:13 36 Hr Tmax: 36.6 at 06/14 10:13 Vital Signs are the last 5 in the past 48 hours. Weights display the last 5 within 7 days. Initial Wt: 06/14 83.0 kg 183 lb Current Wt: 06/14 83.0 kg 183 lb GENERAL: HEENT: CARDIOVASCULAR: RESPIRATORY: ABDOMEN: EXREMETIES: NEUROLOGICAL: PSYCHIATRIC: LABS: No 36hr Lab Data DIAGNOSTICS: IMPRESSION: PLAN: History and Physical Update I have examined the patient; reviewed the H&P and there are no changes to the H&P unless noted below. Digitally Signed by JAYLEN OAKES DPM on 06/14/2023 10:22 AM [facility]12-11-2021 Hospital Discharge instructions Patient Education 04/15/2021 12:27:07 Syncope, Unk Cause Fainting: Uncertain Cause Fainting (syncope) is a temporary loss of consciousness, which is often associated with a loss of postural tone. There are other causes of fainting, too. It s also called passing out. It occurs when blood flow to the brain is less than normal. Near-fainting (near-syncope) is very similar to fainting, but you don t fully pass out. Common minor causes of fainting include: Sudden fear Pain Nausea Emotional stress Overexertion Suddenly standing up after sitting or lying for a long time can also cause fainting. More serious causes of fainting include: Very slow or very fast heartbeat (arrhythmia) Other types of heart disease, such as heart valve disease or coronary artery disease Dehydration Loss of blood Seizure Stroke Ruptured blood vessel in the brain Taking too much high blood pressure medicine can also cause low blood pressure and fainting. Your healthcare provider does not know the exact cause of your fainting. But the tests today did not show any of the serious causes of fainting. Sometimes you may need more tests to find out if you have a serious problem. That s why it s important to follow up with your provider as advised. Home care Follow these guidelines when caring for yourself at home: Rest today. You may go back to your normal activities when you are feeling back to normal. It is best to stay with someone who can check on you for the next 24 hours to watch for another episode of fainting. If you become lightheaded or dizzy, lie down right away and try to prop your feet above the level of your head. Or sit with your head between your knees. Because the provider doesn t know the exact cause of your fainting or near- fainting spell, it s possible for you to have another spell without warning. Because of this, don t drive a car or operate dangerous equipment. Don t take a bath alone. Use a shower instead. Don t swim alone until your healthcare provider says that you are no longer in danger of having another fainting spell. Follow-up care Follow up with your healthcare provider, or as advised. Call 911 Call 911 if any of these occur: Another fainting spell that s not explained by the common causes listed above Pain in your chest, arm, neck, jaw, back, or abdomen Shortness of breath Severe headache or seizure Blood in vomit or stools (black or red color) Unexpected vaginal bleeding Your heart beats very rapidly, very slowly, or irregularly (palpitations) Weakness in an arm or leg or on one side of the face Difficulty speaking or seeing Extreme drowsiness, confusion, dizziness, or fainting [id number] [employer]. [address] [place] [address]. All rights reserved. This information is not intended as a substitute for professional medical care. Always follow yourhealthcare professional's instructions. Follow Up Care 04/15/2021 10:28:04 With:BEBE YAN Address: [id number] When:2-4 days With:Go to emergency room if symptoms worsen Address:Unknown When:2-4 days [facility] 11-22-2021 Evaluation + Plan note Future Scheduled Tests Laboratory* Thyroid Stimulating Hormone 03/27/21 * Free T4 03/27/21 [facility] Evaluation + Plan note Future Appointments [facility] evaluation + Plan note Future Appointments Appointment Date:11/04/2023 08:00:00 AM Scheduled Provider:BEBE YAN Location:[facility] Appointment Type:PC Wellness Medicare Appointment Date:12/31/2023 08:00:00 AM Scheduled Provider:BEBE YAN Location:[facility] Appointment Type:PC OV Future Scheduled Tests Laboratory* A1C Hemoglobin 11/27/23 * Lipid Profile 11/27/23 * Albumin/Creatinine Ratio, Random Urine 11/27/23 * Complete Metabolic Panel 11/27/23 [facility] evaluation + Plan note Future Appointments Appointment Date:04/13/2024 08:00:00 AM Scheduled Provider:BEBE YAN Location:[facility] Appointment Type:PC OV [facility] Evaluation + Plan note Future Appointments Appointment Date:02/25/2024 08:30:00 AM Scheduled Provider: Location:[facility] Appointment Type:PT Treatment [facility] Appointment Date:02/27/2024 08:30:00 AM Scheduled Provider: Location:[facility] Appointment Type:PT [facility] Appointment Date:03/03/2024 08:30:00 AM Scheduled Provider: Location:[facility] Appointment Type:PT [facility] Appointment Date:03/05/2024 08:30:00 AM Scheduled Provider: Location:[facility] Appointment Type:PT Treatment [facility] Appointment Date:03/23/2024 08:30:00 AM Scheduled Provider: Location:[facility] Appointment Type:PT Outpatient Evaluation Appointment Date:04/13/2024 08:00:00 AM Scheduled Provider:BEBE YAN Location:[facility] Appointment Type:PC OV [facility] Evaluation + Plan note Future Appointments Appointment Date:02/27/2024 08:30:00 AM Scheduled Provider: Location:[facility] Appointment Type:PT [facility] Appointment Date:03/03/2024 08:30:00 AM Scheduled Provider: Location:[facility] Appointment Type:PT [facility] Appointment Date:03/05/2024 08:30:00 AM Scheduled Provider: Location:[facility] Appointment Type:PT [facility] Appointment Date:03/23/2024 08:30:00 AM Scheduled Provider: Location:[facility] Appointment Type:PT Outpatient Evaluation Appointment Date:04/13/2024 08:00:00 AM Scheduled Provider:BEBE YAN Location:[facility] Appointment Type:PC OV [facility] Evaluation + Plan note Future Appointments Appointment Date:03/23/2024 08:30:00 AM Scheduled Provider: Location:[facility] Appointment Type:PT Outpatient Evaluation Appointment Date:04/13/2024 08:00:00 AM Scheduled Provider:BEBE YAN Location:[facility] Appointment Type:PC OV [facility] Evaluation + Plan note Future Appointments Appointment Date:04/10/2024 08:30:00 AM Scheduled Provider: Location:[facility] Appointment Type:PT [facility] Appointment Date:04/13/2024 08:00:00 AM Scheduled Provider:BEBE YAN Location:[facility] Appointment Type:PC OV Appointment Date:04/14/2024 08:30:00 AM Scheduled Provider: Location:[facility] Appointment Type:PT [facility] Appointment Date:04/17/2024 08:30:00 AM Scheduled Provider: Location:[facility] Appointment Type:PT Treatment [facility] Evaluation + Plan note Future Appointments Appointment Date:08/10/2024 07:30:00 AM Scheduled Provider:BEBE YAN Location:[facility] Appointment Type:PC OV Future Scheduled Tests Laboratory* TSH with Reflex to FT4 04/13/24 [facility] Evaluation + Plan note Future Appointments Appointment Date:11/09/2024 07:30:00 AM Scheduled Provider:BEBE YAN Location:[facility] Appointment Type:PC OV Future Scheduled Tests Laboratory* TSH with Reflex to FT4 04/13/24 * Thyroid Stimulating Hormone 11/09/24 * Free T4 11/09/24 * A1C Hemoglobin 11/09/24 * Lipid Profile 11/09/24 * Complete Metabolic Panel 11/09/24 [facility] Evaluation + Plan note Future Appointments Appointment Date:11/23/2024 09:00:00 AM Scheduled Provider:BEBE YAN Location:[facility] Appointment Type:PC OV [facility] Evaluation + Plan note Future Appointments Appointment Date:02/09/2025 09:00:00 AM Scheduled Provider:BEBE YAN Location:[facility] Appointment Type:PC Wellness Medicare [facility] Evaluation + Plan note Future Appointments Appointment Date:07/26/2025 08:15:00 AM Scheduled Provider: Location:[facility] Appointment Type:PC Nurse Lab Appointment Date:08/11/2025 07:00:00 AM Scheduled Provider:BEBE YAN Location:[facility] Appointment Type:PC OV Lab Check Future Scheduled Tests Laboratory* Thyroid Stimulating Hormone 08/11/25 * Free T4 08/11/25 * A1C Hemoglobin 08/11/25 * Lipid Profile 08/11/25 * Complete Metabolic Panel 08/11/25 [facility] Evaluation note* Diagnosis Onset Date Resolution Status Admit Date Dilated cbd, acquired acute Oct brenda 2024 7:51am Elevated alkaline phosphatas e level acute February 15 7:51am Elevated ALT measurement acute February 15, 2025 7:51am Elevated serum GGT level acute February 15, 2025 7:51am Family history of colon cancer acute February 15, 2025 7:51am Personal history of colonic polyps acute February 15 7:51am [facility] Work Phone: Hospital course Narrative No data available for this section [facility] Hospital Discharge instructions No data available for this section [facility] progress note No data available for this section [facility] progress note Author Jazmine Culver [facility] Note Date/Time February 15, 2025 8 :24am [facility] [address] [place] [address] OFFICE VISIT Date of Service: 02/15/25 MR#: [id number] Acct: [id number] Name: KHOI CAPUTO Rep #: [id number] : 1950 Provider: CAROLYN Culver Age/Sex: 74/F Location: [facility] Status: Signed Intake Vital Signs 02/15/25 08:09 Height 5 ft 6 in Weight: 172 lb 8 oz BMI 27.8 BP 151/106 H Respiration 18 Pulse 81 Temp 97.7 F L Temp Source Temporal Pulse Oximetry (%) 96 Oxygen Delivery Method room air Intake Visit Reasons: Liver Enzymes Chief Complaint: elevated liver enzymes Health Plan Advisor Required: No Accompanied by: Is patient in pain?: No Allergies lisinopril Adverse Reaction (Unknown, Verified 02/15/25 07:57) cough Medications ?Medication ?Instructions ?Recorded ?Confirmed ?Type ascorbic acid (vitamin C) 500 mg mg PO QDAY 02/02/25 1 History capsule atorvastatin 20 mg tablet (Lipitor) 20 mg PO QDAY 01/0602/15/25 History lactobacillus combination no.9 4 4,000 mmu cells PO QD AY 02/02/25 02/15/25 History billion cell capsule (Adult 50 Plus Probiotic) levothyroxine 150 mcg capsule 150 mcg PO QDAY 02/02/25 02/15/25 History losartan 25 mg tablet 25 mg PO QDAY 02/02/2502/15 History multivitamin 1 tab PO QDAY 02/02/2502/15 History zinc sulfate 50 mg zinc (220 mg) 50 mg PO QDAY 5 02/15/25 History tablet alfalfa 1,000 mg tablet 500 mg PO QDAY 02/15/2502/03 History Have you fallen in the past year?: No PFSH Medical History TTS (tarsal tunnel syndrome) Cataracts, bilateral Gallstones Thyroid disease Frequent headaches Bone fracture Surgical History History of knee replacement History of cataract surgery History of carpal tunnel surgery Hx of tonsillectomy History of cholecystectomy Family History Mother Breast cancer Arthritis Father Colon cancer Social History Smoking Status: Never smoker alcohol intake: never substance use type: does not use HPI HPI Chief Complaint: elevated liver enzymes Details: LABS 01/05/2025 AST normal, ALT 63, ALP 268, T. Bili 0.7 11/16/2024 AST normal., ALT 62, ALP 266, T. Bili 0.7 GGT 01/05/2025 345 TSH 01/05/2025 normal HAV Total Ab: HBVsA01/05/2025 negative HBVsAb: HBV Core Ab Total: HCV Ab: 01/05/2025 negative HIV: 03/19/2024 negative Alcohol: denies Herbals: Latimer OTC: Vitamin C, Zinc, M. Vit, probiotic ATB: denies NSAIDS: denies Fever: denies Jaundice: denies Pruritus: denies Weight loss: denies ABD pain: denies CCX long time ago Denies any family h/o liver disease Father with colon CA - last colon 07/26/2020 - denies any bleeding - denies any change in bowel habits ROS Const Constitutional: No fatigue, fever(s) or weight change ENT ENT: No difficulty swallowing Gastro GI: No abdominal pain, belching, bloating, change in bowel habits, change in stool character, coffee ground emesis, constipation, cramping, diarrhea, heartburn, difficulty swallowing, feeling full early, excessive flatus, incontinent of stools, Vomiting blood/hematemesis, Blood in stool, loose stools,Black,tarry stools, nausea/dyspepsia, pain with swallowing, vomiting or other Musc Musculoskeletal: Positive for joint pain, back pain, muscle cramps, stiffness, Arthritis and sciatica Skin Skin: No yellowing of the eye or itchy eyes Psych Psychiatric: No anxiety and No depression Endo Endocrine: No fatigue or weight change Aller/Imm Allergy/Immunologic: No itchy eyes Jonathan/Lymp Hematologic/Lymphatic: No easy bleeding or easy bruising Assessment and Plan Assessment and Plan (1) Elevated alkaline phosphatase level: Status: Acute (2) Elevated ALT measurement: Status: Acute (3) Dilated cbd, acquired: Status: Acute (4) Elevated serum GGT level: Status: Acute (5) Family history of colon cancer: Status: Acute Comment: Father (6) Personal history of colonic polyps: Status: Acute Orders: Orders Anti-Mitochondrial AB Today K83.8 - Other specified diseases of biliary tract, R74.01 - Elevation of levels of liver transaminase levels, R74.8 - Abnormal levels of other serum enzymes CHRISTOPHER w/ Reflex Mult Confirm Today K83.8 - Other specified diseases of biliary tract, R74.01 - Elevation of levels of liver transaminase levels, R74.8 - Abnormal levels of other serum enzymes Liver Profile Today K83.8 - Other specified diseases of biliary tract, R74.01 -Elevation of levels of liver transaminase levels, R74.8 - Abnormal levels of other serum enzymes Hepatitis A AB, Total Today K83.8 - Other specified diseases of biliary tract, R74.01 - Elevation of levels of liver transaminase levels, R74.8 - Abnormal levels of other serum enzymes Hepatitis B Core Ab Total Today K83.8 - Other specified diseases of biliary tract, R74.01 - Elevation of levels of liver transaminase levels, R74.8 - Abnormal levels of other serum enzymes Hepatitis B Surface Antibody Today K83.8 - Other specified diseases of biliary tract, R74.01 - Elevation of levels of liver transaminase levels, R74.8 - Abnormal levels of other serum enzymes IgG Subclasses Today K83.8 - Other specified diseases of biliary tract, R74.01 - Elevation of levels of liver transaminase levels, R74.8 - Abnormal levels of other serum enzymes MRCP Abdomen without Contrast Today K83.8 - Other specified diseases of biliarytract, R74.01 - Elevation of levels of liver transaminase levels, R74.8 - Abnormal levels of other serum enzymes Angiotensin Convert Enzyme Today K83.8 - Other specified diseases of biliary tract, R74.01 - Elevation of levels of liver transaminase levels, R74.8 - Abnormal levels of other serum enzymes Plan 74-year-old female presents for initial consultation of elevated liver enzymes. Labs completed 01/05/2025 reveal AST normal at 38, ALT mildly elevated at 63, andalkaline phosphatase elevated to 268. PMH significant for diabetes mellitus type 2, and hypothyroidism. Abdominal ultrasound performed 01/08/2025 reveals a normal- appearing liver, CBD 12.1 mm S/P cholecystectomy, negative for choledocholithiasis. She denies any abdominal pain, weight loss, pruritus, or fevers. She denies the use of any antibiotics, and NSAIDS. She does take alfalfa daily, but denies any other herbal supplements. I have ordered additional labs and MRCP. She should follow-up in the office in 6 weeks to review results. Her last colonoscopy was performed July 2020. Her family history is significant for father with colon cancer and I recommend repeating a colonoscopy July 2025. EUS should be considered if MRCP is negative with unexplained cholestatic liver enzyme elevation and CBD dilation, as this offers superior diagnostic yield for occult obstruction and malignancy. Patient Instructions: Patient to have labs [facility] at [facility] today Patient plans to have MRCP performed at [facility] Follow-up in office in 6 weeks Colonoscopy recommended July 2025 Plan Details Follow Up: 6 Weeks Coding Level of Care Code Off vis,new,level 4 Diagnoses Elevated alkaline phosphatase level R74.8 Elevated ALT measurement R74.01 Dilated cbd, acquired K83.8 Elevated serum GGT level R74.8 Family history of colon cancer Z80.0 Personal history of colonic polyps Z86.0100 Clinical Quality Measures Falls Risk Screening/Assistive Devices Have you fallen in the past year?: No Smoking Screening Smoking Status: Never smoker 02/15/25 0831 <Electronically signed by Jazmine LEON> Date _ Jazmine SANCHEZC Cosigner Signature: Date (if applicable) CC: ~ [facility] Work Phone: Reason for referral (narrative)No reason for referral information available[facility]heim [facility] Work Phone: Summary Purpose Family History No Family History Records Found Relationship Condition Age at Onset Recorded Date/T brooks mother Malignant neoplasm of breast Unknown Arthritis Unknown father Malignant neoplasm of colon Unknown Advance Directives No Advanced Directives Records FoundNo Advanced Directives Records FoundNo Advanced Directives Records FoundNo Advanced Directives Records FoundNo Advanced Directives Records Found Chief Complaint and Reason for Visit Chief Complaint Admit Date Liver Enzymes February 15, 2025 7 :51am E ORDERS February 15, 2025 8 :33am Reason for Visit Admit Date Dilated cbd, acquired February 15, 2025 7:51am Elevated alkaline phosphatase level Octo geronimo 2024 7:51am Elevated ALT measurement February 15 025 7:51am Elevated serum GGT level February 15 025 7:51am Family history of colon cancer February 032024 7:51am Personal history of colonic polyps Octob er 2024 7:51am Additional Source Comments INFORMATION SOURCE (unrecogn ized section and content) DATE CREATED AUTHOR 07/27/2020 [facility] DATE CREATED AUTHOR AUTHOR'S ORGANIZ ATION 06/08/2022 [facility] DATE CREATED AUTHOR AUTHOR'S ORGANIZ ATION 01/01/2024 [facility] ([place]) DATE CREATED AUTHOR AUTHOR'S ORGANIZ ATION 03/03/2025 [facility] DATE CREATED AUTHOR AUTHOR'S ORGANIZ ATION 03/14/2025 [facility] Patient Care team informatio n (unrecognized section and content) Team Status: Active Member Role/Relationship Status Dates Bebe Yan NP, PERSONNEL RECORDS CLERK-C Primary care physician Active Team Status: Inactive Member Role/Relationship Status Dates CAROLYN [place] Attending physician Active Start: February 15, 2025 End: February 15, 2025 Team Status: Active Member Role/Relationship Status Dates Bebe Yan NP, PERSONNEL RECORDS CLERK-Jovany Primary care physician Active Start: February 15, 2025 CAROLYN [place] Attending physician Active Start: February 15, 2025 CAROLYN [place] Referring Provider Active Start: February 15, 2025 Goals (unrecognized section and content) Goals may be documented in a n alternate section FOR RECORDS PERTAINING TO PATIENTS WHO ARE OR HAVE BEEN ENROLLED IN A CHEMICAL DEPENDENCY/SUBSTANCEABUSE PROGRAM, SOME INFORMATION MAY BE OMITTED. This clinical summary was aggregated from multiple sources. Caution should be exercised in using it in the provision of clinical care. This summary normalizes information from multiple sources, and as a consequence, information in this document may materially change the coding, format and clinical context of patient data. In addition, data may be omitted in some cases. CLINICAL DECISIONS SHOULD BE BASED ON THE PRIMARY CLINICAL RECORDS. [facility]. provides no warranty or guarantee of the accuracy or completeness of information in this document.
[2025-04-05 09:11] LABS: AST(SGOT) 29 U/L (<=31); Alanine Aminotransfer ALT/SGPT 27 U/L (<=34); Albumin, Serum 4.1 g/dL (3.4-4.8); Alkaline Phosphatase 173 U/L (35-104); Bilirubin, Direct 0.29 mg/dL (0.00-0.30); Globulin 3.2 g/dL (2.2-4.2)
== END | disposition home or self-care (01) ==
LOC: LAB 07:45
PROVIDERS: PCP Nurse Practitioner Family; Referring Provider Nurse Practitioner Acute Care; Visit Provider Nurse Practitioner Acute Care
DX: R74.8 Abnormal levels of other serum enzymes (principal); K83.8 Other specified diseases of biliary tract; R74.01 Elevation of levels of liver transaminase levels
CPT/HCPCS: 36415; 80076